=== PATIENT | female | born 1940 | race Caucasian/White ===

== ENCOUNTER → 2018-11-21 | Outpatient (CLI) | payer MEDICARE, BC ==
--- NOTE | 2018-11-21 12:02 | Diagnostic Imaging Report ---
PROCEDURE: CT abdomen and pelvis without contrast. TECHNIQUE: Multiple contiguous axial images were obtained through the abdomen and pelvis without the use of intravenous contrast. Auto Exposure Controls were utilized during the CT exam to meet ALARA standards for radiation dose reduction. INDICATION: Gross hematuria. COMPARISON: There are no prior studies available for comparison. FINDINGS: There is no evidence for nephrolithiasis or urolithiasis, and the kidneys do not appear to be obstructed. There is a 2.6 mm calcification along the path of the left ureter at the level of the sacral promontory. However, this is not clearly within the ureter. The urinary bladder is only partially filled and consequently not well evaluated. There is no obvious bladder abnormality evident. The uterus is surgically absent. There is no pelvic mass or free fluid collection noted. The appendix was not well visualized, but there are no indirect signs of acute appendicitis. The gallbladder is surgically absent. The liver, spleen, pancreas, adrenals, aorta, and inferior vena cava show no sign of an acute abnormality. The stomach is partially filled with fluid and consequently difficult to assess. The lung bases are generally clear. The patient appears to have undergone mastectomy on the left, and there does appear to be a tissue bracelet maker novelty in place. The bone windows show no sign of a fracture or of a destructive lesion. There is a dorsal stimulator device in place with the battery pack in the soft tissues of the left buttock. The leads extend to the level of T12. However, the leads are in the subcutaneous fat just to the left of midline and not in the region of the thecal sac. IMPRESSION: 1. There is no evidence for nephrolithiasis or urolithiasis, and the kidneys do not appear to be obstructed. There is no obvious bladder abnormality evident. 2. There is no acute abnormality of the abdomen or pelvis. 3. The gallbladder and uterus are surgically absent. There also appears to have been prior left mastectomy. 4. There is a dorsal stimulator device in place on the left. However, the leads are in the subcutaneous fat along the posterior aspect of the lower thoracic spine and not within the thecal sac. Dictated by: Dictated on workstation # [id number]
== END ==
LOC: RAD 10:26
PROVIDERS: ATTEND Urology
DX: R31.0 Gross hematuria (principal); Z90.49 Acquired absence of other specified parts of digestive tract; Z90.710 Acquired absence of both cervix and uterus; Z96.89 Presence of other specified functional implants
CPT/HCPCS: 74176

== ENCOUNTER 2019-04-22 09:15 | Outpatient (CLI) | payer MEDICARE ==
[~2019-04-22] VITALS: Ht 157 cm; Wt 55.0 kg
[~2019-04-22 09:15] MED LIST: ANTI1CAP5 PO; ASCO100025 PO; ASPI-808 PO; CALC600T12 PO; CETI10TA17 PO; CRAN1CAP3 PO; CYCL10TA9 PO; DIAZ5TAB3 PO; DOCU-238 PO; EZET10TA49 PO; FLUO20CA42 PO; HYDR-3820 PO; LACT1CAP62 PO; LETR2.5T5 PO; MAGN400T39 PO; NIAC500T24 PO; POLY17PO6 PO; ROSU10TA28 PO
== END 2019-04-22 10:20 | disposition home or self-care (01) ==
LOC: PREOP 09:15
PROVIDERS: ATTEND Orthopaedic Surgery
DX: Z01.818 Encounter for other preprocedural examination (principal)

== ENCOUNTER 2019-04-27 07:46 | Day surgery (SDC) | payer MEDICARE ==
[~2019-04-27] VITALS: Ht 157 cm; Wt 55.0 kg
[2019-04-27] VITALS (11 sets, daily range): BP systolic 139–162; BP diastolic 66–80
[2019-04-27] MEDS ORDERED: LACTATED RINGERS 1,000 ML IV PRN (07:52)
[2019-04-27] MEDS ORDERED: ceFAZolin 2 GM/50 ML PRE-MIX IV ONE (08:15)
[2019-04-27] MEDS ORDERED: CATHETER FLUSH 10 ML SYR IV PRN (08:15)
[2019-04-27] MEDS ORDERED: BACITRACIN 100,000 UNIT/NS 1000 ML POUR BOTTLE IR ONE ×2 (09:00)
[2019-04-27] MEDS ORDERED: GENTAMICIN 40 MG/ML 2 ML INJ SDV ONE (09:26)
[2019-04-27] MEDS ORDERED: BUP/EPI 0.5% 1:200,000 (MARCAINE) 10ML VIAL IJ ONE (09:27)
[2019-04-27] MEDS ORDERED: BACITRACIN OINTMENT 28 GM TUBE ONE (09:27)
[2019-04-27] MEDS ORDERED: ONDANSETRON 4 MG/2 ML (SDV) Z0FRAN ONE ×2 (09:28→09:29)
[2019-04-27] MEDS ORDERED: proPOfol 200 MG/20 ML (DIPRIVAN) VIAL IV ONE (09:28)
[2019-04-27] MEDS ORDERED: SEVOFLURANE (ULTANE) 15 ML INHAL SOLN ONE ×3 (09:28→10:48)
[2019-04-27] MEDS ORDERED: LIDOCAINE PF 2% 5 ML (XYLOCAINE) VIAL ONE (09:28)
[2019-04-27] MEDS ORDERED: DEXAMETHASONE 10 MG/ML (DECADRON) 1 ML VIAL ONE (09:28)
[2019-04-27] MEDS ORDERED: FAMOTIDINE 20MG/2ML IV (PEPCID) ONE (09:29)
[2019-04-27] MEDS ORDERED: MIDAZOLAM 2 MG/2 ML (VERSED) VIAL ONE ×2 (09:33→09:35)
[2019-04-27] MEDS ORDERED: fentaNYL INJECTION 100 MCG/2 ML AMP ONE (09:34)
[2019-04-27] MEDS ORDERED: PROPOFOL INJECTION 50 ML IV ONE (09:40)
[2019-04-27] MEDS ORDERED: FAMOTIDINE 20MG/2ML IV (PEPCID) IV ONE (09:45)
[2019-04-27] MEDS ORDERED: ONDANSETRON 4 MG/2 ML (SDV) Z0FRAN IV ONE (09:45)
[2019-04-27] MEDS ORDERED: NEOSTIGMINE 3 MG/3 ML VIAL ONE (10:49)
[2019-04-27] MEDS ORDERED: GLYCOPYRROLATE 0.2 MG/ML (ROBINUL) 2 ML VIAL ONE (10:49)
--- NOTE | 2019-04-27 11:07 | Discharge Instructions ---
Discharge Instructions Reconcile Patient Problems Problems Reviewed?: Yes Patient Instructions Patient Instructions follow up in clinic in 2 weeks for staple removal Patient Instructions: keep incision coverd, clean, and dry Return to [facility] For: fever, chills incisional drainage chest pain shortness of breath Activity & Diet Discharge Diet: No Restrictions MORRIS MACIEL Apr 27, 2019 11:07 POS
[2019-04-27] MEDS ORDERED: HYDR-3820 PO (11:10)
[2019-04-27] MEDS ORDERED: ONDANSETRON 4 MG/2 ML (SDV) Z0FRAN IVP PRN (11:15)
[2019-04-27] MEDS ORDERED: MEPERIDINE (DEMEROL) INJ 50 MG/ML IVP ONE (11:15)
[2019-04-27] MEDS ORDERED: KETOROLAC 30 MG/ML VIAL IVP ONE (11:15)
[2019-04-27] MEDS ORDERED: morphine INJ 10 MG/ML 1ML (SYR OR VIAL) IVP ONE (11:15)
[2019-04-27] MEDS ORDERED: KETOROLAC 30 MG/ML VIAL ONE (11:17)
--- NOTE | 2019-04-27 11:32 | Diagnostic Imaging Report ---
INDICATION: Fluoroscopy during spinal cord stimulator removal. Fluoroscopy was provided in the OR during spinal cord stimulator removal. 7 seconds of fluoroscopic time was utilized. IMPRESSION: Fluoroscopy during spinal cord stimulator removal. Dictated by: Dictated on workstation # [id number]
--- NOTE | 2019-04-27 12:02 | Anesthesia-General Post-Op ---
General Patient Condition Mental Status/LOC: Same as Preop Cardiovascular: Satisfactory Nausea/Vomiting: Absent Respiratory: Satisfactory Pain: Controlled Complications: Absent Post Op Complications Complications None Follow Up Care/Instructions Patient Instructions None needed. Anesthesia/Patient Condition Patient Condition Patient is doing well, no complaints, stable vital signs, no apparent adverse anesthesia problems. No complications reported per nursing. JEMMA KO CRNA Apr 27, 2019 12:02 POS
--- NOTE | 2019-04-27 12:10 | NUR ---
TO AMB SURG FROM PAR PER CART. ALERT, DENIES C/O PAIN OR NAUSEA. OPSITE OVER GAUZE DRESSINGS D/I TO X4 SURGICAL SITES FROM LEFT UPPER BACK TO LEFT BUTTOCK. ICE CHIPS AND WATER PROVIDED. CMS/NEURO CHECKS WNL.
--- NOTE | 2019-04-27 12:40 | NUR ---
HAS BEEN UP TO BR WITH ASSIST, GAIT STEADY. NO CHANGE IN CMS/NEURO OR SURGICAL SITE ASSESSMENTS.
--- NOTE | 2019-04-27 13:00 | NUR ---
DENIES PAIN OR NAUSEA. STATES SHE IS READY FOR DISMISSAL.
--- NOTE | 2019-04-27 14:03 | OPERATIVE REPORT ---
DATE OF SERVICE: 04/27/2019 SURGEON: Esteban Ceja DO MANAGER TERMINAL: KYLE Yuan. This is a medically necessary procedure. Marketing Account Manager was necessary for retraction of vital neurovascular structures. Without an health information assistant, the procedure would not be possible. PREOPERATIVE DIAGNOSES: 1. Painful hardware. 2. Neuropathic pain syndrome. POSTOPERATIVE DIAGNOSES: 1. Painful hardware. 2. Neuropathic pain syndrome. PROCEDURE PERFORMED: Removal of spinal cord stimulator percutaneous lead and pulse generator. COMPLICATIONS: None. SPECIMEN SENT: Pulse generator, pocket granuloma. ESTIMATED BLOOD LOSS: Minimal. ANESTHESIA: General endotracheal tube anesthesia with local anesthetic. HISTORY OF PRESENT ILLNESS: The patient is a very pleasant 78-year-old female who had a percutaneous spinal cord stimulator lead placed some time ago. This did not help with her pain and she wished to have it removed due to pain over the battery site when she did sit as the pulse generator was placed directly over her ischial tuberosity. DESCRIPTION OF PROCEDURE: The patient was identified by name on wrist band in the preoperative holding area. Her operative site was signed, consent was signed. SCDs were placed. Neuro monitoring was hooked up and antibiotics were started. She was taken to the operating room theater and placed under general endotracheal tube anesthesia and then transferred to the operating room table in the prone position. She was prepped and draped in the usual sterile fashion. Formal timeout was conducted. Incisions were then made over the old scar lines. There were approximately four incisions were made. First, I had infiltrated the skin and soft tissue with 0.5% Marcaine with epinephrine. I located the pulse generator, it was very white powdery substance almost as if it was battery corrosion totally encapsulating the pulse generator. I removed the pulse generator, cut the wires. I did remove the encapsulation material and sent to the lab for analysis as routine analysis. I made incisions further up over the old scar lines, found the leads and totally removed the percutaneous leads and got an x-ray, which demonstrated no residual retained hardware. When I was finished, I maintained hemostasis, irrigated the wounds, placed 1 gram of vancomycin powder and I closed the wound utilizing #0 Vicryls followed by 2-0 Vicryl followed by jose for skin. We applied dressings and took the patient in the supine position to the PACU where she awoke without incident. She tolerated the procedure well. PLAN: At this time is to discharge the patient today. I will see her back in two weeks and is to keep her wound clean and dry. Job ID: [id number] DocumentID: [id number] Dictated Date: 04/27/2019 10:59:11 Hack Driver Date: 04/27/2019 14:02:29 Dictated By: ESTEBAN CEJA DO
== END 2019-04-27 13:15 | disposition home or self-care (01) ==
LOC: SDC 07:46
PROVIDERS: ATTEND Orthopaedic Surgery
DX: T85.698A Other mechanical complication of other specified internal prosthetic devices, implants and grafts, initial encounter (principal); M79.2 Neuralgia and neuritis, unspecified; M79.89 Other specified soft tissue disorders; I11.9 Hypertensive heart disease without heart failure; I25.10 Atherosclerotic heart disease of native coronary artery without angina pectoris; E78.5 Hyperlipidemia, unspecified; F41.9 Anxiety disorder, unspecified; Z90.49 Acquired absence of other specified parts of digestive tract; Z90.710 Acquired absence of both cervix and uterus; Z90.89 Acquired absence of other organs; Z85.3 Personal history of malignant neoplasm of breast; Z79.899 Other long term (current) drug therapy; Z79.82 Long term (current) use of aspirin; Z79.891 Long term (current) use of opiate analgesic; Z80.9 Family history of malignant neoplasm, unspecified; Z82.49 Family history of ischemic heart disease and other diseases of the circulatory system
CPT/HCPCS: 87081; 88305

== ENCOUNTER → 2019-08-12 | Outpatient (CLI) | payer MEDICARE ==
[~2019-08-12] MED LIST changes: +ACHYD1T PO; -DIAZ5TAB3 PO; +DIAZ5TAB49 PO; -HYDR-3820 PO; -LETR2.5T5 PO; +LETR2.5T6 PO
[2019-08-12 09:23] LABS: ALANINE AMINOTRANSFERASE 18 U/L (0-55); ALBUMIN 4.3 GM/DL (3.2-4.5); ALKALINE PHOSPHATASE 82 U/L (40-136); BILIRUBIN,TOTAL 0.3 MG/DL (0.1-1.0); BUN/CREATININE RATIO 17; CALCIUM 9.6 MG/DL (8.5-10.1); CARBON DIOXIDE 30 MMOL/L (21-32); CHLORIDE 102 MMOL/L (98-107); CREATININE SERUM 0.77 MG/DL (0.60-1.30); GFR ESTIMATED > 60; GLUCOSE 92 MG/DL (70-105); POTASSIUM 4.4 MMOL/L (3.6-5.0); SODIUM 142 MMOL/L (135-145); TOTAL PROTEIN 6.4 GM/DL (6.4-8.2)
[2019-08-12 14:57] LABS: CHOLESTEROL 147 MG/DL (< 200); HDL CHOLESTEROL 68 MG/DL (40-60); TRIGLYCERIDES 67 MG/DL (<150); VLDL CHOLESTEROL 13 MG/DL (5-40)
== END ==
LOC: LAB FS 08:24
PROVIDERS: ATTEND Family Medicine
DX: E78.5 Hyperlipidemia, unspecified (principal)
CPT/HCPCS: 36415; 80053; 80061

== ENCOUNTER → 2019-10-14 | Outpatient (CLI) | payer MEDICARE ==
[2019-10-14 15:39] LABS: HEMATOCRIT 36 % (35-52); MEAN CORPUSCULAR HEMOGLOBIN 29 PG (25-34); MEAN CORPUSCULAR HGB CONC 33 G/DL (32-36); MEAN CORPUSCULAR VOLUME 88 FL (80-99); MEAN PLATELET VOLUME 8.7 FL (7.4-10.4); PLATELET COUNT 250 10^3/uL (130-400); RED CELL DISTRIBUTION WIDTH 13.5 % (10.0-14.5); WHITE BLOOD COUNT 5.8 10^3/uL (4.3-11.0)
[2019-10-14 15:40] LABS: BASOPHILS % (AUTO) 1 % (0-10); EOSINOPHILS # (AUTO) 0.1 10^3/uL (0.0-0.3); EOSINOPHILS % (AUTO) 1 % (0-10); LYMPHOCYTES # (AUTO) 1.5 X 10^3 (1.0-4.0); LYMPHOCYTES % (AUTO) 26 % (12-44); MONOCYTES # (AUTO) 0.5 X 10^3 (0.0-1.0); MONOCYTES % (AUTO) 8 % (0-12); NEUTROPHILS # (AUTO) 3.8 X 10^3 (1.8-7.8); NEUTROPHILS % (AUTO) 64 % (42-75)
[2019-10-15 15:34] LABS: FREE T4 (FREE THYROXINE) 1.05 NG/DL (0.70-1.48)
== END ==
LOC: LAB FS 15:02
PROVIDERS: ATTEND Family Medicine
DX: R53.1 Weakness (principal); R53.83 Other fatigue
CPT/HCPCS: 36415; 82607; 84439; 84443; 85025

== ENCOUNTER → 2019-10-22 | Outpatient (CLI) | payer MEDICARE | LOC: LAB FS 08:35 | PROVIDERS: ATTEND Family Medicine | DX: E55.9 Vitamin D deficiency, unspecified (principal) | CPT/HCPCS: 36415; 82306 ==

== ENCOUNTER → 2019-11-09 | Outpatient (CLI) | payer MEDICARE ==
[2019-11-09 08:39] LABS: ALANINE AMINOTRANSFERASE 17 U/L (0-55)
[2019-11-09 15:36] LABS: CHOLESTEROL 146 MG/DL (< 200); HDL CHOLESTEROL 71 MG/DL (40-60); TRIGLYCERIDES 56 MG/DL (<150); VLDL CHOLESTEROL 11 MG/DL (5-40)
== END ==
LOC: LAB FS 07:57
PROVIDERS: ATTEND Internal Medicine Cardiovascular Disease
DX: E78.5 Hyperlipidemia, unspecified (principal)
CPT/HCPCS: 36415; 80061; 84450; 84460

== ENCOUNTER → 2019-11-13 | Outpatient (CLI) | payer MEDICARE | LOC: LABNPT 08:52 | PROVIDERS: ATTEND Pain Medicine Interventional Pain Medicine | DX: Z01.812 Encounter for preprocedural laboratory examination (principal); Z20.828 Contact with and (suspected) exposure to other viral communicable diseases; G54.8 Other nerve root and plexus disorders | CPT/HCPCS: 87635 ==

== ENCOUNTER 2019-11-17 17:34 | Emergency (ER) | payer MEDICARE ==
[~2019-11-17] VITALS: Ht 165 cm; Wt 60.0 kg
[2019-11-17] MEDS ORDERED: NITROGLYCERIN 2% OINT 1 GM UNIT DOSE PACKET TOP ONE (17:45)
[2019-11-17] MEDS ORDERED: ASPIRIN 81 MG CHEW (CHILDREN'S ASA) PO ONE (17:45)
[2019-11-17] MEDS ORDERED: morphine INJ 10 MG/ML 1ML (SYR OR VIAL) IVP STA ×3 (17:46→20:22)
--- NOTE | 2019-11-17 17:52 | ED Chest Pain ---
General Stated Complaint: CHEST PAIN Source: patient History of Present Illness Date Seen by Provider: Nov 17, 2019 Time Seen by Provider: 17:47 Initial Comments 79-year-old female presenting with complaints of left-sided chest pain and rib pain. She states this is been present since 1 PM today when she was leaving [facility] from having a spinal injection for pain in her back along her bra line. She had tried taking 2 sublingual nitroglycerin without any improvement at home. She states that pain feels similar to when she has had to have stents placed in the past. Her knuckler is through [facility]. She is scheduled to have a stress test in the morning because she had a fast heart rate and had not had an evaluation of her heart for while. She denies nausea or vomiting. She has some shortness of breath due to pain with deep breaths and movement. Allergies and Home Medications Allergies Coded Allergies: No Known Drug Allergies (Unverified , 04/21/19) Home Medications Antiox #11/Om3/Dha/Epa/Lut/Belinda 1 Each Capsule, 1 EACH PO DAILY, (Reported) Ascorbic Acid 1,000 Mg Tablet.er, 1,000 MG PO BID, (Reported) Aspirin 325 Mg Tablet, 325 MG PO DAILY, (Reported) Calcium Carbonate 600 Mg Tablet, 1,200 MG PO BID, (Reported) Cetirizine HCl 10 Mg Tablet, 10 MG PO DAILY, (Reported) Cranberry Conc/Ascorbic Acid 1 Each Capsule, 1 EACH PO DAILY, (Reported) Cyclobenzaprine HCl 10 Mg Tablet, 10 MG PO TID PRN for SPASMS, (Reported) Diazepam 5 Mg Tablet, 5 MG PO DAILY PRN for ANXIETY, (Reported) Docusate Sodium 100 Mg Capsule, 100 MG PO DAILY, (Reported) Ezetimibe 10 Mg Tablet, 5 MG PO DAILY, (Reported) Fluoxetine HCl 20 Mg Capsule, 20 MG PO DAILY, (Reported) Hydrocodone Bit/Acetaminophen 1 Each Tablet, 1 TAB PO Q6H PRN for PAIN-MODERATE Prescribed by: MORRIS MACIEL on 04/27/19 1110 Lactobacillus Acidophilus 1 Each Capsule, 1 EACH PO DAILY, (Reported) Letrozole 2.5 Mg Tablet, 2.5 MG PO DAILY, (Reported) Magnesium Oxide 400 Mg Tablet, 400 MG PO DAILY, (Reported) Niacinamide 500 Mg Tablet, 500 MG PO DAILY, (Reported) Polyethylene Glycol 3350 17 Gm Powd.pack, 17 GM PO DAILY, (Reported) Rosuvastatin Calcium 10 Mg Tablet, 10 MG PO DAILY, (Reported) Patient Home Medication List Home Medication List Reviewed: Yes Review of Systems Review of Systems Constitutional: No chills, No fever EENTM: No Symptoms Reported Respiratory: Denies Cough; Other (pain with deep breaths and movement) Cardiovascular: Chest Pain (left-sided chest pain with palpation and movement since 1300 today); Denies Lightheadedness, Denies Syncope Gastrointestinal: Denies Nausea, Denies Vomiting Genitourinary: Denies Burning, Denies Pain Musculoskeletal: back pain (today she had an injection of her back for pain along the bra line in her back.) Skin: no symptoms reported Psychiatric/Neurological: Denies Numbness, Denies Paresthesia Past Lcdmsyz-Ykjiqy-Dytitx Hx Past Med/Social Hx: Reviewed Nursing Past Med/Soc Hx Patient Social History 2nd Hand Smoke Exposure: No Recent Foreign Travel: No Contact w/Someone Who Travel: No Recent Hopitalizations: No Seasonal Allergies Seasonal Allergies: Yes Past Medical History Surgeries: Yes (PACEMAKER, L MASTECTOMY, SPINAL CORD STIMULATOR) Appendectomy, Gallbladder, 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, Oophorectomy, Tonsillectomy Respiratory: No Currently Using CPAP: No Currently Using BIPAP: No Cardiac: Yes (PACEMAKER, STENTS) Heart Attack, High Cholesterol Neurological: No TRANSITIONAL CARE NURSE History: 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 Sexually Transmitted Disease: No HIV/AIDS: No Genitourinary: No Gastrointestinal: Yes Chronic Constipation Musculoskeletal: Yes Chronic Back Pain Endocrine: No HEENT: Yes (GLASSES) Loss of Vision: Denies Hearing Impairment: Denies Cancer: Yes Breast Did You Recieve Any Treatments: Yes What Type of Treatment Did You: Surgical Intervention Psychosocial: Yes Anxiety Integumentary: No Blood Disorders: No Adverse Reaction/Blood Tranf: No (N/A) Physical Exam Vital Signs Vital Signs - First Documented 11/17/19 17:34 Temp 36.1 Pulse 77 Resp 18 B/P (MAP) 139/72 (94) Pulse Ox 96 O2 Delivery Room Air Capillary Refill : Height, Weight, BMI Height: '" Weight: lbs. oz. kg; 22.31 BMI Method: General Appearance: WD/WN, Anxious, Mild Distress HEENT: Pharynx Normal Neck: Full Range of Motion, Normal Inspection, Non Tender, Supple Respiratory: Lungs Clear, Normal Breath Sounds, No Accessory Muscle Use, No Respiratory Distress, Other (pain with palpation of the left chest wall) Cardiovascular: Regular Rate, Rhythm, Normal Peripheral Pulses Gastrointestinal: Normal Bowel Sounds, No Pulsatile Mass, Non Tender, Soft Extremity: Normal Capillary Refill, No Pedal Edema Neurologic/Psychiatric: Alert, Oriented x3, No Motor/Sensory Deficits Skin: Normal Color, Warm/Dry Progress/Results/Core Measures Results/Orders Lab Results Laboratory Tests Test 11/17/19 17:45 Range/Units White Blood Count 6.3 4.3-11.0 10^3/uL Red Blood Count 4.10 L 4.35-5.85 10^6/uL Hemoglobin 12.1 11.5-16.0 G/DL Hematocrit 36 35-52 % Mean Corpuscular Volume 89 80-99 FL Mean Corpuscular Hemoglobin 30 25-34 PG Mean Corpuscular Hemoglobin Concent 33 32-36 G/DL Red Cell Distribution Width 13.5 10.0-14.5 % Platelet Count 264 130-400 10^3/uL Mean Platelet Volume 9.1 7.4-10.4 FL Neutrophils (%) (Auto) 88 H 42-75 % Lymphocytes (%) (Auto) 11 L 12-44 % Monocytes (%) (Auto) 1 0-12 % Eosinophils (%) (Auto) 0 0-10 % Basophils (%) (Auto) 0 0-10 % Neutrophils # (Auto) 5.5 1.8-7.8 X 10^3 Lymphocytes # (Auto) 0.7 L 1.0-4.0 X 10^3 Monocytes # (Auto) 0.1 0.0-1.0 X 10^3 Eosinophils # (Auto) 0.0 0.0-0.3 10^3/uL Basophils # (Auto) 0.0 0.0-0.1 10^3/uL Neutrophils % (Manual) 82 % Lymphocytes % (Manual) 11 % Monocytes % (Manual) 1 % Eosinophils % (Manual) 0 % Basophils % (Manual) 0 % Band Neutrophils 6 % Blood Morphology Comment NORMAL Prothrombin Time 13.0 12.2-14.7 SEC INR Comment 1.0 0.8-1.4 Activated Partial Thromboplast Time 27 24-35 SEC Sodium Level 137 135-145 MMOL/L Potassium Level 4.3 3.6-5.0 MMOL/L Chloride Level 101 98-107 MMOL/L Carbon Dioxide Level 21 21-32 MMOL/L Anion Gap 15 H 5-14 MMOL/L Blood Urea Nitrogen 20 H 7-18 MG/DL Creatinine 0.82 0.60-1.30 MG/DL Estimat Glomerular Filtration Rate > 60 BUN/Creatinine Ratio 24 Glucose Level 179 H 70-105 MG/DL Calcium Level 9.1 8.5-10.1 MG/DL Corrected Calcium 8.9 8.5-10.1 MG/DL Magnesium Level 2.2 1.6-2.4 MG/DL Total Bilirubin 0.3 0.1-1.0 MG/DL Aspartate Amino Transf (AST/SGOT) 25 5-34 U/L Alanine Aminotransferase (ALT/SGPT) 16 0-55 U/L Alkaline Phosphatase 70 40-136 U/L Troponin I < 0.30 <0.30 NG/ML Pro-B-Type Natriuretic Peptide 347.3 H <75.0 PG/ML Total Protein 6.4 6.4-8.2 GM/DL Albumin 4.2 3.2-4.5 GM/DL My Orders Orders - SERENA HARRINGTON MD Cbc With Automated Diff (11/17/19 17:44) Magnesium (11/17/19 17:44) Chest 1 View Ap/Pa Only (11/17/19 17:44) Ekg Tracing (11/17/19 17:44) Comprehensive Metabolic Panel (11/17/19 17:44) Protime With Inr (11/17/19 17:44) Partial Thromboplastin Time (11/17/19 17:44) O2 (11/17/19 17:44) Monitor-Rhythm Ecg Trace Only (11/17/19 17:44) Aspirin Chewable Tablet (Baby Aspirin Ch (11/17/19 17:45) Ed Iv/Invasive Line Start (11/17/19 17:44) Troponin I Fs (11/17/19 17:44) Probnp Fs (11/17/19 17:44) Nitroglycerin Ointment (Nitrobid Ointme (11/17/19 17:45) Morphine Injection (Morphine Injection (11/17/19 17:46) Manual Differential (11/17/19 17:45) Morphine Injection (Morphine Injection (11/17/19 19:21) Chest 1 View Ap/Pa Only (11/17/19 19:52) Morphine Injection (Morphine Injection (11/17/19 20:22) Medications Given in ED Current Medications Medications Dose Ordered Sig/Bertin Route Start Time Stop Time Status Last Admin Dose Admin Aspirin 324 mg ONCE ONCE PO 11/17/19 17:45 11/17/19 17:46 DC 11/17/19 17:54 324 MG Nitroglycerin 1 inch ONCE ONCE TOP 11/17/19 17:45 11/17/19 17:46 DC 11/17/19 17:55 1 INCH Vital Signs/I&O 11/17/19 11/17/19 17:34 20:29 Temp 36.1 Pulse 77 79 Resp 18 18 B/P (MAP) 139/72 (94) 125/68 Pulse Ox 96 95 O2 Delivery Room Air Room Air Progress Progress Note #1: Progress Note obtain labs, ECG, CXR. Order aspirin 324 mg po and nitroglycerin paste 1 inch. Pt reports this pain feels similar to when she had to have stents placed in the past and she is due to have a stress test at [facility] in the morning. She has a pacemaker that is set to 68 bpm. She had a pain management injection this morning in [place] because of pain along her bra line. Since 1300 she has had constant pain to left chest worse with movement, deep breath and palpation. Progress Note #2: Time: 18:54 Progress Note Updated pt about results being negative for acute coronary syndrome. Her troponin was 0. However on her chest x-ray she does have a small apical pneumothorax approximately 5-10%. Discussed with Dr. Moon from surgery and [facility] and he stated that they could admit her in [place] and watch this with repeat x-rays later tonight and then again in the morning. If it remained stable then she could probably be treated as an outpatient without having to go through a chest tube. If it was getting larger or she acutely decompensated then they could place a chest tube. However when I discussed it with the patient she wanted to speak with her family and was thinking about going to because her knuckler and specialty care is done through [facility] as well as the stress test that was scheduled for tomorrow morning. Progress Note #3: Time: 19:26 Progress Note Patient's family and the patient decided they would prefer to go to [facility] for her chest pain and acute pneumothorax. I spoke with LAURA Giang, at the transfer center and she will call back after speaking with the staff for a possible transfer. Progress Note #4: Time: 19:48 Progress Note LAURA Giang, from the transfer center called back and Dr. Juan Jose Rankin is the accepting physician. He did request to have a repeat chest x-ray performed and clouded up so he could make sure that she was not having significant change in the size of her pneumothorax, prior to transfer. Progress Note #5: Time: 20:05 Progress Note Repeat CXR appears stable without significant change in size of pneumothorax. Updated LAURA Giang, at the Transfer Center and she gave the room assignment so the patient could be transferred. Will call report and then have EMS take her to . Progress Note #6: Time: 20:43 Progress Note Patient given 2 mg of Morphine prior to transport with EMS to help with pain from movement and transport. Initial ECG Impression Date: Nov 17, 2019 Initial ECG Impression Time: 17:38 Initial ECG Rate: 83 Initial ECG Rhythm: Normal Sinus Initial ECG Comparisson: No Previous ECG Available Comment Paced rhythm with a heart rate of 83 bpm. MA interval 215 ms. Right bundle- branch block. QT interval 426 ms with a QTc interval 501 ms. There is no acute ST elevation and no prior tracing in the system for comparison. Diagnostic Imaging Diagonstic Imaging: Xray Plain Films/CT/US/NM/MRI: chest Comments [facility]. [place], [place] NAME: VINCENT VINCENT [facility] REC#: [id number] PT STATUS: REG ER : 1940 PHYSICIAN: SERENA HARRINGTON MD ADMIT DATE: 11/17/19/ER FS Draft Date of Exam:11/17/19 CHEST 1 VIEW AP/PA ONLY INDICATION: Chest pain. TIME OF EXAM: 05:50 p.m. COMPARISON: No prior studies are available for comparison. FINDINGS: Dual lead left subclavian cardiac pacemaker is noted. There is a lucency in the left lung apex and a small apical pneumothorax is suspected. Lungs are otherwise clear. There is no effusion. IMPRESSION: Findings suspect for a left apical pneumothorax. No other significant abnormality is detected. Dictated on workstation # [id number] Dict: 11/17/[id number] Trans: 11/17/191807 [facility] [id number] Interpreted by: ANANYA DAWN MD Electronically signed by: Kellie Imaging: Xray Plain Films/CT/US/NM/MRI: chest Comments NAME: [facility] REC#: [id number] PT STATUS: REG ER : 1940 PHYSICIAN: SERENA HARRINGTON MD ADMIT DATE: 11/17/19/ER FS Draft Date of Exam:11/17/19 CHEST 1 VIEW AP/PA ONLY INDICATION: Pneumothorax FINDINGS: Comparison is made with the exam performed earlier on 11/17/2019, which again shows a pneumothorax on the left with separation of the lung from the apex of approximately 3 cm which is stable compared to the prior study. No tension is evident. There is no effusion. IMPRESSION: Stable left apical pneumothorax. Dictated on workstation # [id number] Dict: 11/17/192008 Trans: 11/17/192012 [facility] [id number] Interpreted by: ANNA SOSA MD Electronically signed by: Departure Impression Primary Impression: Pneumothorax, acute Disposition: XFER SHT-TRM HOSP Condition: Stable Transfer Transfer Reason: Patient preference Transfer Progress Notes 1925 I spoke with LAURA Giang, at [facility] and gave her information about the patient. She will reach out to the staff doctors about the patient and call me back. 1947 LAURA Giang, from [facility] called and Dr. Juan Jose Rankin is the accepting physician. He did request a repeat xray prior to transfer to ensure her pneumothorax was not changing significantly before having her ride in ambulance Transfer Facility: [facility] Method of Transfer: EMS Departure-Patient Inst. Referrals: NILA CASAS MD (PCP/Family) Primary Care Physician SERENA HARRINGTON MD Nov 17, 2019 17:52
[2019-11-17 18:04] LABS: HEMATOCRIT 36 % (35-52); HEMOGLOBIN 12.1 G/DL (11.5-16.0); LYMPHOCYTES % (AUTO) 11 % (12-44); MEAN CORPUSCULAR HEMOGLOBIN 30 PG (25-34); MEAN CORPUSCULAR HGB CONC 33 G/DL (32-36); MEAN CORPUSCULAR VOLUME 89 FL (80-99); MEAN PLATELET VOLUME 9.1 FL (7.4-10.4); MONOCYTES % (AUTO) 1 % (0-12); NEUTROPHILS % (AUTO) 88 % (42-75); PLATELET COUNT 264 10^3/uL (130-400); RED CELL DISTRIBUTION WIDTH 13.5 % (10.0-14.5); WHITE BLOOD COUNT 6.3 10^3/uL (4.3-11.0)
[2019-11-17 18:05] LABS: BASOPHILS % (AUTO) 0 % (0-10); EOSINOPHILS % (AUTO) 0 % (0-10); LYMPHOCYTES # (AUTO) 0.7 X 10^3 (1.0-4.0); MONOCYTES # (AUTO) 0.1 X 10^3 (0.0-1.0); NEUTROPHILS # (AUTO) 5.5 X 10^3 (1.8-7.8)
--- NOTE | 2019-11-17 18:08 | Diagnostic Imaging Report ---
INDICATION: Chest pain. TIME OF EXAM: 05:50 p.m. COMPARISON: No prior studies are available for comparison. FINDINGS: Dual lead left subclavian cardiac pacemaker is noted. There is a lucency in the left lung apex and a small apical pneumothorax is suspected. Lungs are otherwise clear. There is no effusion. IMPRESSION: Findings suspect for a left apical pneumothorax. No other significant abnormality is detected. Dictated by: Dictated on workstation # [id number]
[2019-11-17 18:14] LABS: BAND NEUTROPHILS 6 %; BASOPHILS % (MANUAL) 0 %; EOSINOPHILS % (MANUAL) 0 %; LYMPHOCYTES % (MANUAL) 11 %; MONOCYTES % (MANUAL) 1 %; NEUTROPHILS % (MANUAL) 82 %
[2019-11-17 18:15] LABS: RBC MORPH NORMAL
[2019-11-17 18:16] LABS: ALANINE AMINOTRANSFERASE 16 U/L (0-55); ALBUMIN 4.2 GM/DL (3.2-4.5); ALKALINE PHOSPHATASE 70 U/L (40-136); BILIRUBIN,TOTAL 0.3 MG/DL (0.1-1.0); BUN/CREATININE RATIO 24; CALCIUM 9.1 MG/DL (8.5-10.1); CARBON DIOXIDE 21 MMOL/L (21-32); CHLORIDE 101 MMOL/L (98-107); CREATININE SERUM 0.82 MG/DL (0.60-1.30); GFR ESTIMATED > 60; GLUCOSE 179 MG/DL (70-105); MAGNESIUM 2.2 MG/DL (1.6-2.4); POTASSIUM 4.3 MMOL/L (3.6-5.0); SODIUM 137 MMOL/L (135-145); TOTAL PROTEIN 6.4 GM/DL (6.4-8.2)
--- NOTE | 2019-11-17 20:14 | Diagnostic Imaging Report ---
INDICATION: Pneumothorax FINDINGS: Comparison is made with the exam performed earlier on 11/17/2019, which again shows a pneumothorax on the left with separation of the lung from the apex of approximately 3 cm which is stable compared to the prior study. No tension is evident. There is no effusion. IMPRESSION: Stable left apical pneumothorax. Dictated by: Dictated on workstation # [id number]
[2019-11-17 20:29] VITALS: BP 125/68
--- OUTSIDE RECORDS SUMMARY | 2019-11-17 20:47 | XMS REPORT ---
Author Author Emily CASAS NILA Organization [facility] Address [address] [place] [address] Care Team Providers Care Multiple Games Dealer Name Role Phone NILA CASAS Unavailable PROBLEMS Type Condition ICD9-CM Code LFD85-CV Code Onset Dates Condition S tatus SNOMED Code Problem Abdominal pain, other specified site R10.9 Jan, Active 43313462 Problem Coronary atherosclerosis of unspecified type of vessel, point lay ira or graft I25.10 Active 598403873157082 Problem Abdominal pain, generalized R10.84 09 Jul, 2008 Active 415931079 Problem Mixed hyperlipidemia E78.2 Active 527287368 Problem Primary breast infiltrating ductal carcinoma C5 0.919 Feb, Active 259629393 Problem Seasonal allergies J30.2 Active 4 85038859 Problem Other and unspecified noninfectious mariana roenteritis and colitis(558.9) K52.9 Jan, Active 216149319 Problem Back pain M54.9 October, Active 1468451 05 Problem Hyperlipidemia E78.5 October, Active 55 927260 Problem Malaise and fatigue R53.81 October, Active 313920942 Problem Presence of cardiac pacemaker Z95.0 Mar, Active 173607119 ALLERGIES No Information ENCOUNTERS Encounter Location Date Diagnosis [address] [place] [address] Jun, [address] [place] [address] May, [address] [place] [address] May, Cervical adenopathy R59.0 an d Left ear pain H92.02 [address] [place] [address] May, [facility] [address] [place] [address] Apr, [facility] [address] [place] [address] Mar, [facility] [address] [place] [address] Mar, [facility] [address] [place] [address] Mar, Bilateral impacted cerumen H 61.23 and Seasonal allergies J30.2 [facility] [address] [place] [address] Feb, [facility] [address] [place] [address] Feb, [facility] [address] [place] [address] Jan, [facility] [address] [place] [address] Jan, [facility] [address] [place] [address] Dec, [facility] [place] [address] [facility] [place] [id number] [address] Dec, [facility] [address] [place] [address] Nov, [facility] [address] [place] [address] Nov, Hyperlipidemia E78.5 [facility] [address] [place] [address] Nov, [facility] [address] [place] [address] Nov, [facility] [address] [place] [address] Nov, Hyperlipidemia E78.5 [facility] [address] [place] [address] Nov, Recurrent UTI (urinary tract infection) N39.0 and Encounter for immunization Z23 [facility] [address] [place] [address] Nov, [facility] [place] [address] [place] [address] Nov, [facility] [place] [address] [place] [address] Nov, [facility] [place] [address] [place] [address] Nov, [facility] [place] [address] [place] [address] Nov, [facility] [address] [place] [address] October, [facility] [place] [address] [place] [address] October, Abdominal pressure R10.9 ; F requent UTI N39.0 and Thrush B37.0 [facility] [address] [place] [address] October, Thrush B37.0 [facility] [place] [address] [place] [address] October, [facility] [place] [address] [place] [address] October, [facility] [place] [address] [place] [address] Sep, [facility] [place] [address] [place] [address] Aug, Acute cystitis with hematuri a N30.01 and Thrush B37.0 [facility] [place] [address] [place] [address] Aug, [facility] [place] [address] [place] [address] Aug, [facility] [address] [place] [address] Aug, [facility] [address] [place] [address] Aug, [facility] [address] [place] [address] Jul, [facility] [address] [place] [address] Jul, [facility] [address] [place] [address] Jul, Urinary pain R30.9 [facility] [address] [place] [address] Jul, [facility] [address] [id number] [place] [address] Jul, [facility] [address] [place] [address] Jul, Mixed hyperlipidemia E78.2 [facility] [address] [place] [address] Jul, [facility] [address] [id number] [place] [address] Jun, [facility] [address] [id number] [place] [address] May, [facility] [address] [id number] [place] [address] May, [facility] [id number] [place] [address] Mar, [facility] [address] [id number] [place] [address] Jan, [facility] [id number] [place] [address] Jun, [facility] [address] [facility] [id number] [place] [address] Feb, [facility] [address] [facility] [id number] [place] [address] Nov, IMMUNIZATIONS No Known Immunizations SOCIAL HISTORY Never Assessed REASON FOR VISIT Requests return call PLAN OF CARE VITAL SIGNS MEDICATIONS Unknown Medications RESULTS No Results PROCEDURES No Known procedures INSTRUCTIONS MEDICATIONS ADMINISTERED No Known Medications MEDICAL (GENERAL) HISTORY Type Description Date Medical History Mammo 2019 Medical History PCV 06/10/2005 Medical History PCV 23 06/10/2013 Medical History Primary breast infiltrating ductal carci noma Medical History coronary atherosclerosis of unspecified type of vessel, point lay ira or graft Medical History hyperlipidemia Medical History back pain Medical History seasonal allergic reaction Medical History malaise and fatgue Medical History presence of cardiac pacemaker Medical History Colorectal screening 10/05/2015 Surgical History heart catheterization Surgical History pacemaker placement Surgical History appendectomy Surgical History cholecystectomy Surgical History excisional biopsy Surgical History hysterectomy Surgical History mastectomy Hospitalization History Surgery(s) only Hospitalization History childbirth only
--- OUTSIDE RECORDS SUMMARY | 2019-11-17 20:47 | XMS REPORT ---
Author Author Sammi Emily DOTSON Organization [facility] Address [address] [place] [address] Care Team Providers Care Climbing Guide Name Role Phone NILA Chapa Unavailable PROBLEMS Type Condition ICD9-CM Code EGN35-JK Code Onset Dates Condition S tatus SNOMED Code Problem Abdominal pain, other specified site R10.9 Jan, Active 08774893 Problem Coronary atherosclerosis of unspecified type of vessel, nenana or graft I25.10 Active 945453495130278 Problem Abdominal pain, generalized R10.84 09 Jul, 2008 Active 276651559 Problem Mixed hyperlipidemia E78.2 Active 847093315 Problem Primary breast infiltrating ductal carcinoma C5 0.919 Feb, Active 253224645 Problem Seasonal allergies J30.2 Active 4 15028065 Problem Other and unspecified noninfectious mariana roenteritis and colitis(558.9) K52.9 Jan, Active 010628465 Problem Back pain M54.9 October, Active 5011701 05 Problem Hyperlipidemia E78.5 October, Active 55 147160 Problem Malaise and fatigue R53.81 October, Active 953098420 Problem Presence of cardiac pacemaker Z95.0 Mar, Active 954607993 ALLERGIES Substance Reaction Event Type Date Status Flagyl Unknown Drug Allergy Aug, Active Cipro Unknown Drug Allergy Aug, Active Bactrim Unknown Drug Allergy Aug, Active ENCOUNTERS Encounter Location Date Diagnosis [address] [id number] [address] Jun, [address] [id number] [address] May, [address] [id number] [place] [address] May, Cervical adenopathy R59.0 an d Left ear pain H92.02 [facility] [address] [id number] [place] [address] May, [facility] [address] [id number] [place] [address] Apr, [facility] [address] [id number] [place] [address] Mar, [facility] [address] [id number] [place] [address] Mar, [facility] [address] [id number] [place] [address] Mar, Bilateral impacted cerumen H 61.23 and Seasonal allergies J30.2 [facility] [address] [id number] [place] [address] Feb, [facility] [address] [id number] [place] [address] Feb, [facility] [address] [id number] [place] [address] Jan, [facility] [address] [id number] [place] [address] Jan, [facility] [address] [id number] [place] [address] Dec, [facility] [place] [address] [facility] [id number] [place] [address] Dec, [facility] [address] [id number] [place] [address] Nov, [facility] [address] [id number] [place] [address] Nov, Hyperlipidemia E78.5 [facility] [address] [id number] [place] [address] Nov, [facility] [address] [id number] [place] [address] Nov, [facility] [address] [id number] [place] [address] Nov, Hyperlipidemia E78.5 [facility] [address] [id number] [place] [address] Nov, Recurrent UTI (urinary tract infection) N39.0 and Encounter for immunization Z23 [facility] [address] [id number] [place] [address] Nov, [facility] [address] [id number] [place] [address] Nov, [facility] [address] [id number] [place] [address] Nov, [facility] [address] [id number] [place] [address] Nov, [facility] [address] [id number] [place] [address] Nov, [facility] [place] [address] [id number] [place] [address] October, [facility] [address] [id number] [place] [address] October, Abdominal pressure R10.9 ; F requent UTI N39.0 and Thrush B37.0 [facility] [place] [address] [id number] [place] [address] October, Thrush B37.0 [facility] [place] [address] [id number] [place] [address] October, [facility] [address] [id number] [place] [address] October, [facility] [place] [address] [id number] [place] [address] Sep, [facility] [place] [address] [id number] [place] [address] Aug, Acute cystitis with hematuri a N30.01 and Thrush B37.0 [facility] [place] [address] [id number] [place] [address] Aug, [facility] [address] [id number] [place] [address] Aug, [facility] [place] [address] [id number] [place] [address] Aug, [facility] [address] [id number] [place] [address] Aug, [facility] [place] [id number] [place] [address] Jul, [facility] [place] [id number] [facility] [place] [address] Jul, [facility] [place] [address] [id number] [address] Jul, Urinary pain R30.9 [facility] [place] [id number] [facility] [place] [address] Jul, [facility] [address] [facility] [id number] [address] [place] [address] Jul, [facility] [place] [address] [id number] [address] Jul, Mixed hyperlipidemia E78.2 [facility] [address] [id number], [place] [address] Jul, [facility] [address] [facility] [id number] [address] [place] [address] Jun, [facility] [address] [facility] [id number] [address] [place] [address] May, [facility] [address] [facility] [id number] [address] [place] [address] May, [facility] [address] [facility] [id number] [address] [place] [address] Mar, [facility] [address] [facility] [id number] [address] [place] [address] Jan, [facility] [address] [facility] [id number] [address] [place] [address] Jun, [facility] [address] [facility] [id number] [address] [place] [address] Feb, [facility] [address] [facility] [id number] [address] [place] [address] Nov, IMMUNIZATIONS No Known Immunizations SOCIAL HISTORY Never Assessed REASON FOR VISIT possible thrush--patient coming at at 1145 PLAN OF CARE VITAL SIGNS Height 63 in 2018-09-04 Weight 128 lbs 2018-09-04 BMI 22.67 kg/m2 2018-09-04 Blood pressure systolic 130 mmHg 2018-09-04 Blood pressure diastolic 70 mmHg 2018-09-04 MEDICATIONS Medication Instructions Dosage Frequency Start Date End Date Duration S tatus Zolpidem Tartrate 5 MG October, Active Pseudoephedrine HCl 30 MG Jun, Active Nystatin 070794 UNIT/ML Mouth/Throat Four times a day 4 ml 6h Aug, 7 days Active Cyclobenzaprine HCl 10 MG May, Active Macrobid 100 MG Orally every 12 hrs 1 capsule with food 12h 28 M 2018 7 day(s) Active Diazepam 5 MG Jun, Activ e Macrobid 100 MG Orally every 12 hrs 1 capsule with food 12h 26 F eb2018 7 day(s) Active Aspirin 325 MG Active Prochlorperazine Maleate 10 MG Nov, Active Ondansetron 8 MG Nov, Ac tive Nitrostat 0.4 MG Jun, Ac tive Niacin Er 500 Mg Tablet,Extended Release 24 Hr 500 Active Fluoxetine HCl 20 MG Jul, Active Cyanocobalamin 1000 MCG/ML Jan, Active Ezetimibe 10 MG Active MethylPREDNISolone 4 MG Jun, Active Omeprazole 20 MG Nov, Ac tive Hydrocodone-Acetaminophen 10-325 MG Orally every 6 hrs as needed 1 tablet Aug, 28 days Active Prochlorperazine 25 Mg Rectal Suppository October Active RESULTS No Results PROCEDURES Procedure Date Ordered Result Body Site [facility] VISIT ESTABLISHED PATIENT September 04, 2018 LAB NOT BILLED BY [facility] September 04, 2018 URINALYSIS, AUTO, W/O SCOPE September 04, 2018 INSTRUCTIONS MEDICATIONS ADMINISTERED No Known Medications MEDICAL (GENERAL) HISTORY Type Description Date Medical History Mammo 2019 Medical History PCV 06/10/2005 Medical History PCV 23 06/10/2013 Medical History Primary breast infiltrating ductal carci noma Medical History coronary atherosclerosis of unspecified type of vessel, nenana or graft Medical History hyperlipidemia Medical History [...]
--- OUTSIDE RECORDS SUMMARY | 2019-11-17 20:47 | XMS REPORT | Continuity of Care Document ---
Author Organization Unknown Address Unknown Phone Unavailable Allergies Active Description Code Type Severity Reaction Onset Reported/Identified Relationship to Patient Clinical Status Yes No Known Drug Allergies [id number] Drug Allergy Unknown N/A 04/21/2019 Medications Medication Packaging Start Date St op Date Route Dosage Sig NEXIUM 9 ORAL 30 daily METHOTREXATE ORAL 4 every we ek LISINOPRIL 08/29 ORAL 30 daily HYDROCHLOROTHIAZIDE 08/29/2018 ORAL 15 regan y FOLIC ACID 08/29 ORAL 30 daily FLOMAX 9 ORAL 30 daily CRESTOR 08/30/19 19 ORAL 30 daily AUGMENTIN 2018 ORAL 20 twice da jamia Problems Date Dx Coded Attending Type Code Diagnosis Diagnosed By 11/24/2018 MASSIEL BASSETT MD Ot R31.0 GROSS HEMATURIA 11/24/2018 MASSIEL BASSETT MD Ot Z90.4 9 ACQUIRED ABSENCE OF OTHER SPECIFIED PART 11/24/2018 MASSIEL BASSETT MD Ot Z90.7 10 ACQUIRED ABSENCE OF BOTH CERVIX AND UTER 11/24/2018 MASSIEL BASSETT MD Ot Z96.8 9 PRESENCE OF OTHER SPECIFIED FUNCTIONAL I 12/16/2018 MASSIEL BASSETT MD Ot R31.0 GROSS HEMATURIA 12/16/2018 MASSIEL BASSETT MD Ot Z90.4 9 ACQUIRED ABSENCE OF OTHER SPECIFIED PART 12/16/2018 MASSIEL BASSETT MD Ot Z90.7 10 ACQUIRED ABSENCE OF BOTH CERVIX AND UTER 12/16/2018 MASSIEL BASSETT MD Ot Z96.8 9 PRESENCE OF OTHER SPECIFIED FUNCTIONAL I 12/18/2018 MASSIEL BASSETT MD Ot R31.0 GROSS HEMATURIA 12/18/2018 MASSIEL BASSETT MD Ot Z90.4 9 ACQUIRED ABSENCE OF OTHER SPECIFIED PART 12/18/2018 MASSIEL BASSETT MD Ot Z90.7 10 ACQUIRED ABSENCE OF BOTH CERVIX AND UTER 12/18/2018 SERJIO MD, MASSIEL A Ot Z96.8 9 PRESENCE OF OTHER SPECIFIED FUNCTIONAL I 04/15/2019 MASSIEL BASSETT MD Ot R31.0 GROSS HEMATURIA 04/15/2019 MASSIEL BASSETT MD Ot Z90.4 9 ACQUIRED ABSENCE OF OTHER SPECIFIED PART 04/15/2019 MASSIEL BASSETT MD Ot Z90.7 10 ACQUIRED ABSENCE OF BOTH CERVIX AND UTER 04/15/2019 MASSIEL BASSETT MD Ot Z96.8 9 PRESENCE OF OTHER SPECIFIED FUNCTIONAL I 04/15/2019 MASSIEL BASSETT MD Ot R31.0 GROSS HEMATURIA 04/15/2019 MASSIEL BASSETT MD Ot Z90.4 9 ACQUIRED ABSENCE OF OTHER SPECIFIED PART 04/15/2019 MASSIEL BASSETT MD Ot Z90.7 10 ACQUIRED ABSENCE OF BOTH CERVIX AND UTER 04/15/2019 MASSIEL BASSETT MD Ot Z96.8 9 PRESENCE OF OTHER SPECIFIED FUNCTIONAL I 04/21/2019 ESTEBAN MCALLSITER DO Ot Z01.818 ENCOUNTER FOR OTHER PREPROCEDURAL EXAMIN 04/21/2019 ESTEBAN MCALLISTER DO Ot Z01.818 ENCOUNTER FOR OTHER PREPROCEDURAL EXAMIN 04/21/2019 ESTEBAN MCALLISTER DO Ot Z01.818 ENCOUNTER FOR OTHER PREPROCEDURAL EXAMIN 04/22/2019 ESTEBAN MCALLISTER DO Ot Z01.818 ENCOUNTER FOR OTHER PREPROCEDURAL EXAMIN 04/27/2019 MASSIEL BASSETT MD Ot R31.0 GROSS HEMATURIA 04/27/2019 MASSIEL BASSETT MD Ot Z90.4 9 ACQUIRED ABSENCE OF OTHER SPECIFIED PART 04/27/2019 MASSIEL BASSETT MD Ot Z90.7 10 ACQUIRED ABSENCE OF BOTH CERVIX AND UTER 04/27/2019 MASSIEL BASSETT MD Ot Z96.8 9 PRESENCE OF OTHER SPECIFIED FUNCTIONAL I 04/27/2019 ESTEBAN MCALLISTER DO Ot E78 .5 HYPERLIPIDEMIA, UNSPECIFIED 04/27/2019 ESTEBAN MCALLISTER DO Ot F41 .9 ANXIETY DISORDER, UNSPECIFIED 04/27/2019 ESTEBAN MCALLISTER DO Ot I11 .9 HYPERTENSIVE HEART DISEASE WITHOUT HEART 04/27/2019 ESTEBAN MCALLISTER DO Ot I25.10 ATHSCL HEART DISEASE OF [place] CORONARY 04/27/2019 ESTEBAN MCALLISTER DO Ot M79 .2 NEURALGIA AND NEURITIS, UNSPECIFIED 04/27/2019 ESTEBAN MCALLISTER DO Ot M79.89 OTHER SPECIFIED SOFT TISSUE DISORDERS 04/27/2019 ESTEBAN MCALLISTER DO Ot T85.698A [facility] COMPL OF INTERNAL PROSTH DEV/GRFT, 04/27/2019 ESTEBAN MCALLISTER DO Ot Z79.82 DAIRY [employer]ER (CURRENT) USE OF ASPIRIN 04/27/2019 ESTEBAN MCALLISTER DO Ot Z79.891 SKILLED NURSING (CURRENT) USE OF OPIATE ANALGE 04/27/2019 ESTEBAN MCALLISTER DO Ot 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 04/27/2019 ESTEBAN MCALLISTER DO Ot Z80 .9 FAMILY HISTORY OF MALIGNANT NEOPLASM, UN 04/27/2019 ESTEBAN MCALLISTER DO Ot Z82.49 FAMILY HX OF ISCHEM HEART DIS AND OTH DI 04/27/2019 ESTEBAN MCALLISTER DO Ot Z85 .3 PERSONAL HISTORY OF MALIGNANT NEOPLASM O 04/27/2019 ESTEBAN MCALLISTER DO Ot Z90.49 ACQUIRED ABSENCE OF OTHER SPECIFIED PART 04/27/2019 ESTEBAN MCALLISTER DO Ot Z90.710 ACQUIRED ABSENCE OF BOTH CERVIX AND UTER 04/27/2019 ESTEBAN MCALLISTER DO Ot Z90.89 ACQUIRED ABSENCE OF OTHER ORGANS 05/04/2019 ESTEBAN MCALLISTER DO Ot E78 .5 HYPERLIPIDEMIA, UNSPECIFIED 05/04/2019 ESTEBAN MCALLISTER DO Ot F41 .9 ANXIETY DISORDER, UNSPECIFIED 05/04/2019 ESTEBAN MCALLISTER DO Ot I11 .9 HYPERTENSIVE HEART DISEASE WITHOUT HEART 05/04/2019 ESTEBAN MCALLISTER DO Ot I25.10 ATHSCL HEART DISEASE OF [place] CORONARY 05/04/2019 ESTEBAN MCALLISTER DO Ot M79 .2 NEURALGIA AND NEURITIS, UNSPECIFIED 05/04/2019 ESTEBAN MCALLISTER DO Ot M79.89 OTHER SPECIFIED SOFT TISSUE DISORDERS 05/04/2019 ESTEBAN MCALLISTER DO Ot T85.698A [facility] COMPL OF INTERNAL PROSTH DEV/GRFT, 05/04/2019 ESTEBAN MCALLISTER DO Ot Z79.82 SKILLED NURSING (CURRENT) USE OF ASPIRIN 05/04/2019 ESTEBAN MCALLISTER DO Ot 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 05/04/2019 ESTEBAN MCALLISTER DO Ot 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 05/04/2019 ESTEBAN MCALLISTER DO Ot Z80 .9 FAMILY HISTORY OF MALIGNANT NEOPLASM, UN 05/04/2019 ESTEBAN MCALLISTER DO Ot Z82.49 FAMILY HX OF ISCHEM HEART DIS AND OTH DI 05/04/2019 ESTEBAN MCALLISTER DO Ot Z85 .3 PERSONAL HISTORY OF MALIGNANT NEOPLASM O 05/04/2019 ESTEBAN MCALLISTER DO Ot Z90.49 ACQUIRED ABSENCE OF OTHER SPECIFIED PART 05/04/2019 ESTEBAN MCALLISTER DO Ot Z90.710 ACQUIRED ABSENCE OF BOTH CERVIX AND UTER 05/04/2019 ESTEBAN MCALLISTER DO Ot Z90.89 ACQUIRED ABSENCE OF OTHER ORGANS 08/14/2019 NILA CASAS MD Ot E78 .5 HYPERLIPIDEMIA, UNSPECIFIED 09/03/2019 NILA CASAS MD Ot E78 .5 HYPERLIPIDEMIA, UNSPECIFIED 10/15/2019 NILA CASAS MD Ot R53 .1 WEAKNESS 10/15/2019 NILA CASAS MD Ot R53.83 OTHER FATIGUE 10/16/2019 NILA CASAS MD Ot R53 .1 WEAKNESS 10/16/2019 NILA CASAS MD Ot R53.83 OTHER FATIGUE 10/20/2019 NILA CASAS MD Ot R53 .1 WEAKNESS 10/20/2019 NILA CASAS MD Ot R53.83 OTHER FATIGUE 10/22/2019 MASSIEL BASSETT MD Ot R31.0 GROSS HEMATURIA 10/22/2019 MASSIEL BASSETT MD Ot Z90.4 9 ACQUIRED ABSENCE OF OTHER SPECIFIED PART 10/22/2019 MASSIEL BASSETT MD Ot Z90.7 10 ACQUIRED ABSENCE OF BOTH CERVIX AND UTER 10/22/2019 MASSIEL BASSETT MD Ot Z96.8 9 PRESENCE OF OTHER SPECIFIED FUNCTIONAL I 10/22/2019 NILA CASAS MD Ot E78 .5 HYPERLIPIDEMIA, UNSPECIFIED 10/22/2019 NILA CASAS MD Ot R53 .1 WEAKNESS 10/22/2019 NILA CASAS MD Ot R53.83 OTHER FATIGUE 10/23/2019 MASSIEL BASSETT MD Ot R31.0 GROSS HEMATURIA 10/23/2019 MASSIEL BASSETT MD Ot Z90.4 9 ACQUIRED ABSENCE OF OTHER SPECIFIED PART 10/23/2019 MASSIEL BASSETT MD Ot Z90.7 10 ACQUIRED ABSENCE OF BOTH CERVIX AND UTER 10/23/2019 MASSIEL BASSETT MD Ot Z96.8 9 PRESENCE OF OTHER SPECIFIED FUNCTIONAL I 10/23/2019 NILA CASAS MD Ot E78 .5 HYPERLIPIDEMIA, UNSPECIFIED 10/23/2019 NILA CASAS MD Ot R53 .1 WEAKNESS 10/23/2019 NILA CASAS MD Ot R53.83 OTHER FATIGUE 10/23/2019 NILA CASAS MD Ot E55 .9 VITAMIN D DEFICIENCY, UNSPECIFIED 11/09/2019 MASSIEL BASSETT MD Ot R31.0 GROSS HEMATURIA 11/09/2019 MASSIEL BASSETT MD Ot Z90.4 9 ACQUIRED ABSENCE OF OTHER SPECIFIED PART 11/09/2019 MASSIEL BASSETT MD Ot Z90.7 10 ACQUIRED ABSENCE OF BOTH CERVIX AND UTER 11/09/2019 MASSIEL BASSETT MD Ot Z96.8 9 PRESENCE OF OTHER SPECIFIED FUNCTIONAL I 11/09/2019 NILA CASAS MD Ot E78 .5 HYPERLIPIDEMIA, UNSPECIFIED 11/09/2019 NILA CASAS MD Ot R53 .1 WEAKNESS 11/09/2019 NILA CASAS MD Ot R53.83 OTHER FATIGUE 11/09/2019 NILA CASAS MD Ot E55 .9 VITAMIN D DEFICIENCY, UNSPECIFIED 11/11/2019 DIOGO GUEVARA MD Ot E78.5 HYPERLIPIDEMIA, UNSPECIFIED 11/12/2019 MASSIEL BASSETT MD Ot R31.0 GROSS HEMATURIA 11/12/2019 MASSIEL BASSETT MD Ot Z90.4 9 ACQUIRED ABSENCE OF OTHER SPECIFIED PART 11/12/2019 MASSIEL BASSETT MD Ot Z90.7 10 ACQUIRED ABSENCE OF BOTH CERVIX AND UTER 11/12/2019 MASSIEL BASSETT MD Ot Z96.8 9 PRESENCE OF OTHER SPECIFIED FUNCTIONAL I 11/12/2019 NILA CASAS MD Ot E78 .5 HYPERLIPIDEMIA, UNSPECIFIED 11/12/2019 NILA CASAS MD Ot R53 .1 WEAKNESS 11/12/2019 NILA CASAS MD Ot R53.83 OTHER FATIGUE 11/12/2019 NILA CASAS MD Ot E55 .9 VITAMIN D DEFICIENCY, UNSPECIFIED 11/12/2019 DIOGO GUEVARA MD Ot E78.5 HYPERLIPIDEMIA, UNSPECIFIED 11/13/2019 MASSIEL BASSETT MD Ot R31.0 GROSS HEMATURIA 11/13/2019 MASSIEL BASSETT MD Ot Z90.4 9 ACQUIRED ABSENCE OF OTHER SPECIFIED PART 11/13/2019 MASSIEL BASSETT MD Ot Z90.7 10 ACQUIRED ABSENCE OF BOTH CERVIX AND UTER 11/13/2019 MASSIEL BASSETT MD Ot Z96.8 9 PRESENCE OF OTHER SPECIFIED FUNCTIONAL I 11/13/2019 NILA CASAS MD Ot E78 .5 HYPERLIPIDEMIA, UNSPECIFIED 11/13/2019 NILA CASAS MD Ot R53 .1 WEAKNESS 11/13/2019 NILA CASAS MD Ot R53.83 OTHER FATIGUE 11/13/2019 NILA CASAS MD Ot E55 .9 VITAMIN D DEFICIENCY, UNSPECIFIED 11/13/2019 DIOGO GUEVARA MD Ot E78.5 HYPERLIPIDEMIA, UNSPECIFIED 11/17/2019 MASSIEL BASSETT MD Ot R31.0 GROSS HEMATURIA 11/17/2019 MASSIEL BASSETT MD Ot Z90.4 9 ACQUIRED ABSENCE OF OTHER SPECIFIED PART 11/17/2019 MASSIEL BASSETT MD Ot Z90.7 10 ACQUIRED ABSENCE OF BOTH CERVIX AND UTER 11/17/2019 MASSIEL BASSETT MD Ot Z96.8 9 PRESENCE OF OTHER SPECIFIED FUNCTIONAL I 11/17/2019 NILA CASAS MD Ot E78 .5 HYPERLIPIDEMIA, UNSPECIFIED 11/17/2019 NILA CASAS MD Ot R53 .1 WEAKNESS 11/17/2019 NILA CASAS MD Ot R53.83 OTHER FATIGUE 11/17/2019 NILA CASAS MD Ot E55 .9 VITAMIN D DEFICIENCY, UNSPECIFIED 11/17/2019 DIOGO GUEVARA MD Ot E78.5 HYPERLIPIDEMIA, UNSPECIFIED 11/17/2019 LEONOR MARIE DO Ot G54.8 OTHER NERVE ROOT AND PLEXUS DISORDERS 11/17/2019 LEONOR MARIE DO Ot Z01.812 ENCOUNTER FOR PREPROCEDURAL LABORATORY E 11/17/2019 [facility] Ot Z20.828 CONTACT W AND EXPOSURE TO OTH VIRAL COMM 11/17/2019 MASSIEL BASSETT MD Ot R31.0 GROSS HEMATURIA 11/17/2019 MASSIEL BASSETT MD Ot Z90.4 9 ACQUIRED ABSENCE OF OTHER SPECIFIED PART 11/17/2019 MASSIEL BASSETT MD Ot Z90.7 10 ACQUIRED ABSENCE OF BOTH CERVIX AND UTER 11/17/2019 MASSIEL BASSETT MD Ot Z96.8 9 PRESENCE OF OTHER SPECIFIED FUNCTIONAL I 11/17/2019 NILA CASAS MD Ot E78 .5 HYPERLIPIDEMIA, UNSPECIFIED 11/17/2019 NILA CASAS MD Ot R53 .1 WEAKNESS 11/17/2019 NILA CASAS MD Ot R53.83 OTHER FATIGUE 11/17/2019 NILA CASAS MD Ot E55 .9 VITAMIN D DEFICIENCY, UNSPECIFIED 11/17/2019 ISMAEL ANGELES [facility] Ot E78.5 HYPERLIPIDEMIA, UNSPECIFIED 11/17/2019 LEONOR MARIE DO Ot G54.8 OTHER NERVE ROOT AND PLEXUS DISORDERS 11/17/2019 LEONOR MARIE DO Ot Z01.812 ENCOUNTER FOR PREPROCEDURAL LABORATORY E 11/17/2019 LEONOR MARIE DO Ot Z20.828 CONTACT W AND EXPOSURE TO OTH VIRAL COMM 11/17/2019 MASSIEL BASSETT MD Ot R31.0 GROSS HEMATURIA 11/17/2019 MASSIEL BASSETT MD Ot Z90.4 9 ACQUIRED ABSENCE OF OTHER SPECIFIED PART 11/17/2019 MASSIEL BASSETT MD Ot Z90.7 10 ACQUIRED ABSENCE OF BOTH CERVIX AND UTER 11/17/2019 MASSIEL BASSETT MD Ot Z96.8 9 PRESENCE OF OTHER SPECIFIED FUNCTIONAL I 11/17/2019 NILA CASAS MD Ot E78 .5 HYPERLIPIDEMIA, UNSPECIFIED 11/17/2019 NILA CASAS MD Ot R53 .1 WEAKNESS 11/17/2019 NILA CASAS MD Ot R53.83 OTHER FATIGUE 11/17/2019 NILA CASAS MD Ot E55 .9 VITAMIN D DEFICIENCY, UNSPECIFIED 11/17/2019 ISMAEL ANGELES, [facility] Ot E78.5 HYPERLIPIDEMIA, UNSPECIFIED 11/17/2019 LEONOR MARIE DO Ot G54.8 OTHER NERVE ROOT AND PLEXUS DISORDERS 11/17/2019 DEXDONIS MOHR LEONOR Saadia Ot Z01.812 ENCOUNTER FOR PREPROCEDURAL LABORATORY E 11/17/2019 LEONOR MARIE DO Ot Z20.828 CONTACT W AND EXPOSURE TO OTH VIRAL COMM Procedures There is no data. Results Test Result Range CULTURE, URINE - 08/05/18 10:50 CULTURE, URINE, ROUTINE SEE NOTE NRG CULTURE, URINE - 09/04/18 12:11 CULTURE, URINE, ROUTINE SEE NOTE NRG CULTURE, URINE - 11/05/18 15:28 CULTURE, URINE, ROUTINE SEE NOTE NRG LIPID PANEL - 12/05/18 07:58 CHOLESTEROL, TOTAL 145 mg/dL <200 HDL CHOLESTEROL 76 mg/dL >50 TRIGLYCERIDES 54 mg/dL <150 LDL-CHOLESTEROL 56 mg/dL (calc) NRG CHOL/HDLC RATIO 1.9 (calc) <5.0 NON HDL CHOLESTEROL 69 mg/dL (calc) <130 CMP - 12/05/18 07:58 GLUCOSE 94 mg/dL 65-99 UREA NITROGEN (BUN) 8 mg/dL 7-25 CREATININE 0.73 mg/dL 0.60-0.93 eGFR NON-AFR. RWANDAN 80 mL/min/1.73m2 > OR = 60 eGFR 93 mL/min/1.73m2 > OR = 60 BUN/CREATININE RATIO NOT APPLICABLE (calc) 6-22 SODIUM 139 mmol/L 135-146 POTASSIUM 4.6 mmol/L 3.5-5.3 CHLORIDE 104 mmol/L 98-110 CARBON DIOXIDE 29 mmol/L 20-32 CALCIUM 9.2 mg/dL 8.6-10.4 PROTEIN, TOTAL 6.4 g/dL 6.1-8.1 ALBUMIN 4.0 g/dL 3.6-5.1 GLOBULIN 2.4 g/dL (calc) 1.9-3.7 ALBUMIN/GLOBULIN RATIO 1.7 (calc) 1.0-2. 5 BILIRUBIN, TOTAL 0.5 mg/dL 0.2-1.2 ALKALINE PHOSPHATASE 85 U/L 33-130 AST 20 U/L 10-35 ALT 15 U/L 6-29 Methicillin resistant Staphylococcus aur eus (MRSA) screening culture - 04/27/19 08:20 Methicillin resistant Staphylococcus aureus (MRSA) scr eening culture NEG NRG Comprehensive metabolic panel - 08/12/19 08:46 Serum or plasma sodium measurement (moles/volume) 142 mmol/L 135-145 Serum or plasma potassium measurement (moles/volume) 4.4 mmol/L 3.6-5.0 Serum or plasma chloride measurement (moles/volume) 102 mmol/L 98-107 Carbon dioxide 30 mmol/L 21-32 Serum or plasma anion gap determination (moles/volume) 10 mmol/L 5-14 Serum or plasma urea nitrogen measurement (mass/volume ) 13 mg/dL 7-18 Serum or plasma creatinine measurement (mass/volume) 0.77 mg/dL 0.60-1.30 Serum or plasma urea nitrogen/creatinine mass ratio 17 NRG Serum or plasma creatinine measurement w ith calculation of estimated glomerular filtration rate > NRG Serum or plasma glucose measurement (mass/volume) 92 mg/dL 70-105 Serum or plasma calcium measurement (mass/volume) 9.6 mg/dL 8.5-10.1 Serum or plasma total bilirubin measurement (mass/volu me) 0.3 mg/dL 0.1-1.0 Serum or plasma alkaline phosphatase katherine surement (enzymatic activity/volume) 82 U/L 40-136 Serum or plasma aspartate aminotransfera se measurement (enzymatic activity/volume) 26 U/L 5-34 Serum or plasma alanine aminotransferase measurement (enzymatic activity/volume) 18 U/L 0-55 Serum or plasma protein measurement (mass/volume) 6.4 g/dL 6.4-8.2 Serum or plasma albumin measurement (mass/volume) 4.3 g/dL 3.2-4.5 CALCIUM CORRECTED 9.4 mg/dL 8.5-10.1 Lipid 1996 panel - 08/12/19 08:46 Serum or plasma triglyceride measurement (mass/volume) 67 mg/dL <150 Serum or plasma cholesterol measurement (mass/volume) 147 mg/dL < 200 Serum or plasma cholesterol in HDL measurement (mass/v olume) 68 mg/dL 40-60 Cholesterol in LDL [mass/volume] in serum or plasma by direct assay 78 mg/dL 1-129 Serum or plasma cholesterol in VLDL measurement (mass/ volume) 13 mg/dL 5-40 Serum or plasma aspartate aminotransfera se measurement (enzymatic activity/volume) - 11/09/19 08:16 Serum or plasma aspartate aminotransfera se measurement (enzymatic activity/volume) 24 U/L 5-34 Serum or plasma alanine aminotransferase measurement (enzymatic activity/volume) - 11/09/19 08:16 Serum or plasma alanine aminotransferase measurement (enzymatic activity/volume) 17 U/L 0-55 Lipid 1996 panel - 11/09/19 08:16 Serum or plasma triglyceride measurement (mass/volume) 56 mg/dL <150 Serum or plasma cholesterol measurement (mass/volume) 146 mg/dL < 200 Serum or plasma cholesterol in HDL measurement (mass/v olume) 71 mg/dL 40-60 Cholesterol in LDL [mass/volume] in serum or plasma by direct assay 70 mg/dL 1-129 Serum or plasma cholesterol in VLDL measurement (mass/ volume) 11 mg/dL 5-40 Coronavirus SARS-CoV-2 SO 2018 - 0 13:45 Coronavirus Ab [Units/volume] in Serum Negative Negative PT panel in platelet poor plasma by coag ulation assay - 11/17/19 17:45 Prothrombin time (PT) in platelet poor plasma by coagu lation assay 13.0 s 12.2-14.7 INR in platelet poor plasma or blood by coagulation as say 1.0 0.8-1.4 Activated partial thromboplastin time (a PTT) in platelet poor plasma bycoagulation assay - 11/17/19 17:45 Activated partial thromboplastin time (a PTT) in platelet poor plasma bycoagulation assay 27 s 24-35 Complete blood count (CBC) with automate d white blood cell (WBC) differential - 11/17/19 17:45 Blood leukocytes automated count (number/volume) 6.3 10*3/uL 4.3-11.0 Blood erythrocytes automated count (number/volume) 4.10 10*6/uL 4.35-5.85 Venous blood hemoglobin measurement (mass/volume) 12.1 g/dL 11.5-16.0 Blood hematocrit (volume fraction) 36 % 35-52 Automated erythrocyte mean corpuscular volume 89 [ foz_us] 80-99 Automated erythrocyte mean corpuscular h emoglobin (mass per erythrocyte) 30 pg 25-34 Automated erythrocyte mean corpuscular h emoglobin concentration measurement (mass/volume) 33 g/dL 32-36 Automated erythrocyte distribution width ratio 13. 5 % 10.0- 14.5 Automated blood platelet count (count/volume) 264 10*3/uL 130-400 Automated blood platelet mean volume measurement 9.1 [foz_us] 7.4-10.4 Automated blood neutrophils/100 leukocytes 88 % 42-75 Automated blood lymphocytes/100 leukocytes 11 % 12-44 Blood monocytes/100 leukocytes 1 % 0-12 Automated blood eosinophils/100 leukocytes 0 % 0-10 Automated blood basophils/100 leukocytes 0 % 0-10 Blood neutrophils automated count (number/volume) 5.5 10*3 1.8-7.8 Blood lymphocytes automated count (number/volume) 0.7 10*3 1.0-4.0 Blood monocytes automated count (number/volume) 0. 1 10*3 0.0-1.0 Automated eosinophil count 0.0 10*3/uL 0 .0-0.3 Automated blood basophil count (count/volume) 0.0 10*3/uL 0.0-0.1 Manual absolute plasma cell count - 02/27 17:45 Blood monocytes/100 leukocytes 1 % NRG Manual blood segmented neutrophils/100 leukocytes 82 % NRG Blood band neutrophils/100 leukocytes 6 % NRG Manual blood lymphocytes/100 leukocytes 11 % NRG Manual eosinophils/100 leukocytes in nose 0 % NRG Manual blood basophils/100 leukocytes 0 % NRG Blood erythrocyte morphology finding identification [facility] Comprehensive metabolic panel - 11/17/19 17:45 Serum or plasma sodium measurement (moles/volume) 137 mmol/L 135-145 Serum or plasma potassium measurement (moles/volume) 4.3 mmol/L 3.6-5.0 Serum or plasma chloride measurement (moles/volume) 101 mmol/L 98-107 Carbon dioxide 21 mmol/L 21-32 Serum or plasma anion gap determination (moles/volume) 15 mmol/L 5-14 Serum or plasma urea nitrogen measurement (mass/volume ) 20 mg/dL 7-18 Serum or plasma creatinine measurement (mass/volume) 0.82 mg/dL 0.60-1.30 Serum or plasma urea nitrogen/creatinine mass ratio 24 NRG Serum or plasma creatinine measurement w ith calculation of estimated glomerular filtration rate > NRG Serum or plasma glucose measurement (mass/volume) 179 mg/dL 70-105 Serum or plasma calcium measurement (mass/volume) 9.1 mg/dL 8.5-10.1 Serum or plasma total bilirubin measurement (mass/volu me) 0.3 mg/dL 0.1-1.0 Serum or plasma alkaline phosphatase katherine surement (enzymatic activity/volume) 70 U/L 40-136 Serum or plasma aspartate aminotransfera se measurement (enzymatic activity/volume) 25 U/L 5-34 Serum or plasma alanine aminotransferase measurement (enzymatic activity/volume) 16 U/L 0-55 Serum or plasma protein measurement (mass/volume) 6.4 g/dL 6.4-8.2 Serum or plasma albumin measurement (mass/volume) 4.2 g/dL 3.2-4.5 CALCIUM CORRECTED 8.9 mg/dL 8.5-10.1 Magnesium - 11/17/19 17:45 Magnesium 2.2 mg/dL 1.6-2.4 TROPONIN I FS - 11/17/19 17:45 TROPONIN I FS < 0.30 <0.30 PROBNP FS - 11/17/19 17:45 PROBNP FS 347.3 pg/mL <75.0 Encounters ACCT No. Visit Date/Time Discharge Status Pt. Type Provider Facility Loc./Unit Complaint [id number] 05/26/2019 17:00:00 05/26/2019 23:59: 59 CLS Outpatient AUGUSTO NILA Lyubov [facility] [id number] 12/05/2018 08:00:00 Document Registration [id number] 11/05/2018 09:20:00 Document Registration [id number] 09/04/2018 11:30:00 Document Registration [id number] 08/05/2018 10:30:00 Document Registration [id number] 08/30/2018 06:11:35 Document Registration [id number] 11/17/2019 17:36:00 20:44:00 DIS Emergency SERENA HARRINGTON MD [facility] ER FS CHEST PAIN [id number] 11/13/2019 08:52:00 23:59:59 CLS Outpatient LEONOR MARIE DO [facility] LABNPT [id number] 11/09/2019 07:57:00 23:59:59 CLS Outpatient ISMAEL ANGELES, DIOGO Mosher [facility] LAB FS AST LIPID ALT [id number] 10/22/2019 08:35:00 23:59:59 CLS Outpatient AUGUSTO ANGELES, NILA Mcarthur [facility] LAB FS VIT D 25 HYDROXY [id number] 10/14/2019 15:02:00 23:59:59 CLS Outpatient INLA CASAS MD [facility] LAB FS WEAKNESS,FATIGUE [id number] 08/12/2019 08:24:00 23:59:59 CLS Outpatient AUGUSTO ANGELES, NILA Mcarthur [facility] LAB FS E78.5 [id number] 04/27/2019 07:46:00 13:15:00 DIS Outpatient ESTEBAN MCALLISTER DO [facility] SDC PAINFUL HARDWARE [id number] 04/22/2019 09:15:00 10:20:00 DIS Outpatient ESTEBAN MCALLISTER DO [facility] PREOP PAINFUL HARDWARE [id number] 11/21/2018 10:26:00 23:59:59 CLS Outpatient SERJIO ANGELES, AMSSIEL Bernard [facility] RAD GROSS HEMATURIA
== END 2019-11-17 20:44 | disposition short-term general hospital (02) ==
LOC: EDUNIT# 17:34 → ER FS 17:36
DX: J93.83 Other pneumothorax (principal); I25.2 Old myocardial infarction; E78.00 Pure hypercholesterolemia, unspecified; F41.9 Anxiety disorder, unspecified; Z79.82 Long term (current) use of aspirin; Z95.0 Presence of cardiac pacemaker; Z95.5 Presence of coronary angioplasty implant and graft; Z85.3 Personal history of malignant neoplasm of breast
CPT/HCPCS: 36415; 71045; 80053; 83735; 83880; 84484; 85007; 85027; 85610; 85730; 93005; 93041

== ENCOUNTER → 2019-11-26 | Outpatient (CLI) | payer MEDICARE ==
--- NOTE | 2019-11-26 11:07 | Diagnostic Imaging Report ---
INDICATION: History of left pneumothorax. PA and lateral chest obtained at 10:11 a.m. and compared to 11/17/2019. FINDINGS: Heart is borderline in size. Pacemaker is unchanged. There is no focal infiltrate or pneumothorax or pleural fluid. The previous left-sided pneumothorax seen on 11/17/2019 appears resolved. There is a calcified granuloma in the right lung base. IMPRESSION: No focal infiltrate. Previous left-sided pneumothorax has resolved compared to 11/17/2019. There is no new abnormality. Dictated by: Dictated on workstation # [id number]
== END ==
LOC: RAD FS 10:02
PROVIDERS: ATTEND Family Medicine
DX: Z87.09 Personal history of other diseases of the respiratory system (principal)
CPT/HCPCS: 71046

== ENCOUNTER 2020-03-21 05:33 | Outpatient (RCR) | payer MEDICARE ==
[~2020-03-21] VITALS: Ht 160 cm; Wt 56.8 kg
[~2020-03-21 05:33] MED LIST changes: -CALC600T12 PO; +CLC600T PO; +L.AC1CAP6 PO; +MELO7.5T46 PO; +METO50TA7 PO; +OMEP20CA18 PO; +ONDA4TAB11 PO; +SUCR1TAB PO; +ZOLP5TAB7 PO
== END 2020-03-21 16:00 | disposition home or self-care (01) ==
LOC: PREOP 05:33
PROVIDERS: ATTEND Surgery
DX: Z01.818 Encounter for other preprocedural examination (principal)

== ENCOUNTER → 2020-03-24 | Outpatient (CLI) | payer MEDICARE | LOC: LABNPT 15:14 | PROVIDERS: ATTEND Family Medicine | DX: R30.0 Dysuria (principal) | CPT/HCPCS: 87077; 87088 ==

== ENCOUNTER → 2020-04-05 | Outpatient (CLI) | payer MEDICARE | LOC: LAB FS 10:15 | PROVIDERS: ATTEND Nurse Practitioner Family | DX: Z01.812 Encounter for preprocedural laboratory examination (principal); Z20.828 Contact with and (suspected) exposure to other viral communicable diseases | CPT/HCPCS: 87635 ==

== ENCOUNTER 2020-04-08 10:51 | Day surgery (SDC) | payer MEDICARE ==
[2020-04-08] VITALS (20 sets, daily range): BP systolic 90–152; BP diastolic 48–74
[~2020-04-08] VITALS: Ht 160 cm; Wt 56.8 kg
[2020-04-08] MEDS ORDERED: NS IV 500 ML 500 ML ONE (10:58)
[2020-04-08] MEDS ORDERED: LIDOCAINE JELLY 2% 6 ML SYRINGE ONE (11:18)
[2020-04-08] MEDS ORDERED: fentaNYL INJECTION 100 MCG/2 ML AMP ONE ×2 (11:18→11:21)
[2020-04-08] MEDS ORDERED: MIDAZOLAM 5 MG/5 ML (VERSED) VIAL ONE ×2 (11:18→11:21)
[2020-04-08] MEDS ORDERED: HURRICAINE EXT TUBE (BENZOCAINE) ONE (11:19)
[2020-04-08] MEDS: NS IV 500 ML 500 ML IV PRN ×2 (11:20→12:41)
[2020-04-08] MEDS ORDERED: LIDOCAINE JELLY 2% 6 ML SYRINGE MM PRN (11:30)
[2020-04-08] MEDS ORDERED: fentaNYL INJECTION 100 MCG/2 ML AMP IVP ONE (11:30)
[2020-04-08] MEDS ORDERED: MIDAZOLAM 5 MG/5 ML (VERSED) VIAL IV ONE (11:30)
[2020-04-08] MEDS ORDERED: HURRICAINE EXT TUBE (BENZOCAINE) XX PRN (11:30)
[2020-04-08] MEDS ORDERED: ONDANSETRON 4 MG/2 ML (SDV) Z0FRAN IVP ONE (11:55)
[2020-04-08] MEDS ORDERED: ONDANSETRON 4 MG/2 ML (SDV) Z0FRAN ONE (11:57)
[2020-04-08] MEDS ORDERED: PROPOFOL INJECTION 50 ML IV ONE (12:37)
--- NOTE | 2020-04-08 13:17 | Progress Note-Pre Operative ---
Pre-Operative Progress Note H&P Reviewed The H&P was reviewed, patient examined and no changes noted. Date Seen by Provider: Apr 08, 2020 Time Seen by Provider: 11:00 Date H&P Reviewed: Apr 08, 2020 Time H&P Reviewed: 11:00 Pre-Operative Diagnosis: GERD, regurg, LLQ abd pain MILLIE MIRANDA MD Apr 08, 2020 13:17
--- NOTE | 2020-04-08 13:19 | Progress Note-Post Operative ---
Post-Operative Progess Note Surgeon (s)/Square Cutter (s) Surgeon MILLEI MIRANDA MD Square Cutter: none Pre-Operative Diagnosis GERD, regurg, LLQ abd pain Post-Operative Diagnosis reflux esophagitis(stage2-3), moderate dist esoph stricture, small HH(1.5cm), moderate gastritis. chronic stage 2 ext and int hemorrhoids, moderate sigmoid diverticulosis. Procedure & Operative Findings Date of Procedure 04/08/20 Procedure Performed/Findings EGD with bx and balloon dilatation. colonoscopy Anesthesia Type mac Estimated Blood Loss Estimated blood loss (mL): minimal Specimens/Packing Specimens Removed ge jxn, antrum MILLIE MIRANDA MD Apr 08, 2020 13:19
[2020-04-08] MEDS ORDERED: PANT40TA2 PO (13:20)
--- NOTE | 2020-04-08 13:20 | Discharge Inst-Surgical ---
D/C Lap Instructions-KIDO New, Converted, or Re-Newed RX: RX on Chart Follow Up Appt in 6-8 weeks Activity as tolerated High Fiber Diet 25g or more per day Avoid Alcohol, Caffeine, Spicy Ideal and Acid foods. Drink 64 fluid oz or more of fluids per day. Symptoms to Report: Fever over 101 degree F, Nausea/Vomiting If any problems/questions: Contact your physician or go to Emergency Room MILLIE MIRANDA MD Apr 08, 2020 13:20
[2020-04-08] MEDS ORDERED: ACETAMINOPHEN 325 MG TABLET PO PRN (13:30)
[2020-04-08] MEDS ORDERED: morphine INJ 10 MG/ML 1ML (SYR OR VIAL) IVP PRN ×2 (13:30)
[2020-04-08] MEDS ORDERED: HYDROcodone/APAP 5 MG/325 MG (LORTAB) TAB PO PRN (13:30)
[2020-04-08] MEDS ORDERED: ONDANSETRON 4 MG/2 ML (SDV) Z0FRAN IVP PRN (16:00)
--- NOTE | 2020-04-08 22:21 | OPERATIVE REPORT ---
DATE OF SERVICE: 04/08/2020 ATTENDING PRIMARY CARE PHYSICIAN: Dr. Diann Almonte. PREOPERATIVE DIAGNOSES: Gastroesophageal reflux disease, weight loss, constipation, history of diverticulosis and left lower abdominal quadrant pain. POSTOPERATIVE DIAGNOSES: Reflux esophagitis stage II, mild distal esophageal stricture, small hiatal hernia 1.5 cm in size, moderate gastritis. No distal obstructions. Mild chronic stage II external and internal hemorrhoids, moderate sigmoid diverticulosis. PROCEDURE: EGD with biopsy and balloon dilatation, colonoscopy. SURGEON: Millie Miranda MD. ANESTHESIA: Monitored anesthesia care. ESTIMATED BLOOD LOSS: Minimal. FINDINGS: Reflux esophagitis stage II, mild distal esophageal stricture, small hiatal hernia 1.5 cm in size, moderate gastritis. No distal obstructions. Mild chronic stage II external and internal hemorrhoids, moderate sigmoid diverticulosis. DISPOSITION: The patient tolerated the procedure well. INDICATIONS: The patient is a 79-year-old female, who has had issues with crampy left lower quadrant abdominal pain, which is on an intermittent basis and sharp in nature. She has also struggled with constipation for many years and does after taking MiraLax to have bowel movements. She does not report any red blood per rectum nor any dark tarry stools as well as no family history of colon cancer. She also reports that she is having episodes of what sounds to be nausea; however, may be more related to regurgitation and gastroesophageal reflux disease. She also has lost weight due to this. DESCRIPTION OF PROCEDURE: The patient was brought to the endoscopy suite, laid in the left lateral decubitus position. After adequate IV pain and stated medications and monitored anesthesia care, the mouthpiece was applied. The endoscope was then placed in the mouth, visualizing the pharynx and hypopharyngeal region. Vocal cords, epiglottis and vallecula identified and appeared to be normal. The endoscope was then gently intubated. The esophageal opening and esophagus insufflated. The endoscope was then advanced through the first, second and third portions of esophagus at the level of the GE junction, reflux esophagitis stage II identified as well as a mild distal esophageal stricture and Schatzki's ring identified. A biopsy was taken of this region with forceps with visualization of good hemostasis. The endoscope was then advanced into the stomach and endoscope retroflexed, visualizing a small hiatal hernia approximately 1.5 cm in size. There was a moderate severity gastritis. No formal ulcerations, polyps, or any neoplasms identified. A biopsy was taken of the antrum to rule out H. pylori with visualization of good hemostasis. The endoscope was then advanced through the pylorus into the first and second portion of the duodenum, which appeared normal with no distal obstructions. We then proceeded with balloon dilatation of distal esophageal stricture. The balloon was placed in the stomach and pulled back to the area of stricture. We first proceeded to 2 and then 4 atmospheres of pressure with mild to moderate resistance. We then proceeded 5 atmospheres of pressure approximately 19.5 mm in luminal diameter with moderate resistance and left this in place for approximately 60 seconds. The balloon was then desufflated and removed with visualization of good hemostasis as well as no mucosal tears. The endoscope was then slowly withdrawn while taking a second look and suctioning of residual air with no additional findings. Under the same anesthesia, we then proceeded with colonoscopy portion of the procedure. Digital rectal examination was performed, which revealed mild chronic stage II external and internal hemorrhoids, not actively edematous nor inflamed and no bleeding. Normal sphincter tone was felt and there were no palpable masses. The endoscope was then intubated and anus and rectum gently insufflated. The endoscope was then advanced through the valves of Sweet of the rectum with no polyps or any neoplasms identified. Through the sigmoid colon, the sigmoid colon was tortuous and there was moderate sigmoid diverticulosis with no mucosal inflammatory change to indicate any diverticulitis. An attempt was made to pass through this region; however, resistance was met and it was decided to switch to a gastroscope and we were able to pass through the tortuous sigmoid colon into the rest of the descending, transverse and ascending colon to the cecum, which were normal. There were no polyps or any neoplasms identified. The endoscope was then slowly withdrawn while taking a second look and suctioning of residual air with no additional findings. The patient tolerated the procedure well. We will recommend the necessary lifestyle and diet accommodation including small and more frequent meals, avoidance of eating at night as well as head elevation while lying supine. She also needs to avoid caffeinated beverages, spicy, greasy and acidic foods. We will also start her on Protonix 40 mg daily. We will also recommend a high fiber diet with at least 25 to 30 grams of fiber daily as well as significant amounts of water to promote soft stools on a daily basis. The goal is to prevent any further propagation of diverticulosis and prevent complications associated with diverticulitis. If she is asymptomatic, she does not need the another colonoscopy for another 10 years. Job ID: [id number] DocumentID: [id number] Dictated Date: 04/08/2020 13:07:15 Systems Software Designer Date: 04/08/2020 22:20:53 Dictated By: MILLIE MIRANDA MD
== END 2020-04-08 14:06 | disposition home or self-care (01) ==
LOC: ENDO 10:51
PROVIDERS: ATTEND Surgery
DX: K29.50 Unspecified chronic gastritis without bleeding (principal); K21.00 Gastro-esophageal reflux disease with esophagitis, without bleeding; K22.2 Esophageal obstruction; K44.9 Diaphragmatic hernia without obstruction or gangrene; K64.1 Second degree hemorrhoids; K57.30 Diverticulosis of large intestine without perforation or abscess without bleeding; R63.4 Abnormal weight loss; Z91.048 Other nonmedicinal substance allergy status; F41.9 Anxiety disorder, unspecified; F32.9 Major depressive disorder, single episode, unspecified; G47.00 Insomnia, unspecified; I25.10 Atherosclerotic heart disease of native coronary artery without angina pectoris; M19.90 Unspecified osteoarthritis, unspecified site; E78.00 Pure hypercholesterolemia, unspecified; I25.2 Old myocardial infarction; Z86.010 Personal history of colon polyps; Z79.899 Other long term (current) drug therapy; Z79.82 Long term (current) use of aspirin; Z88.2 Allergy status to sulfonamides; Z88.7 Allergy status to serum and vaccine; Z91.041 Radiographic dye allergy status; Z88.1 Allergy status to other antibiotic agents; Z91.012 Allergy to eggs; Z87.11 Personal history of peptic ulcer disease; Z85.3 Personal history of malignant neoplasm of breast
CPT/HCPCS: 88305

== ENCOUNTER → 2021-01-02 | Outpatient (CLI) | payer MEDICARE ==
[~2021-01-02] MED LIST changes: +CALC600T91 PO; -CLC600T PO; -DOCU-238 PO; +DOCU-26 PO; +PANT40TA2 PO
--- NOTE | 2021-01-02 18:04 | Diagnostic Imaging Report ---
INDICATION: Chest pain. Comparison is made with prior examination from 11/26/2019. FINDINGS: Heart size is normal. Lungs are clear. There is no pleural effusion or pneumothorax. Mediastinum is unremarkable. Pacemaker overlies left hemithorax. IMPRESSION: No acute cardiopulmonary abnormality Dictated by: Dictated on workstation # [id number]
== END ==
LOC: RAD FS 15:50
PROVIDERS: ATTEND Family Medicine
DX: R07.9 Chest pain, unspecified (principal)
CPT/HCPCS: 71046

== ENCOUNTER → 2021-01-23 | Outpatient (CLI) | payer MEDICARE | LOC: LAB FS 11:55 | PROVIDERS: ATTEND Orthopaedic Surgery | DX: Z01.812 Encounter for preprocedural laboratory examination (principal); Z20.822 Contact with and (suspected) exposure to COVID-19 | CPT/HCPCS: 87635 ==

== ENCOUNTER 2021-02-23 23:10 | Emergency (ER) | payer MEDICARE ==
[~2021-02-23] VITALS: Ht 160 cm; Wt 57.6 kg
--- OUTSIDE RECORDS SUMMARY | 2021-02-23 23:16 | XMS REPORT | Encounter Summary ---
Author Author [facility] Organization [facility] Address Unknown Phone Unavailable Care Team Providers Care Jewel Sawyer Name Role Phone Amena Arrington MD 100 Zohaib Hernandes MD Unavailable Joel Caceres MD Unavailable Diego Cruz MD Unavailable Lorna Trujillo PA-C Unavailable Jose J Desai MD Unavailable Shahida Adan RN Unavailable Unavailable Diann Almonte MD PCP Encounter Details Care Team Description Date Type Department 01/12/2021 Travel Social History Date Tobacco Use Types Packs/Day Years Used Never Smoker Smokeless Tobacco: Never Used Comments Alcohol Use Standard Drinks/Week No 0 (1 standard drink = 0.6 o z pure alcohol) Sex Assigned at Date Recorded Female 11/16/2019 4:04 PM CDT Date Recorded COVID-19 Exposure Response 01/12/2021 1:55 PM CDT In the last month, have you been in contact with No / Unsure someone who was confirmed or suspected to have Coronavirus / COVID-19? documented as of this encounter Functional Status Date of Assessment Functional Status Response 12/21/2019 Does the patient have a hearing impairment: No 12/21/2019 Does the patient have a visual impairment: Yes 12/21/2019 Does the patient have impaired ambulation: No 12/21/2019 Does the patient have an activity of daily living No (ADL) impairment: 12/21/2019 Does the patient have an instrumental activity of No daily living (IADL) impairment: Date of Assessment Cognitive Status Response 12/21/2019 Does the patient have a cognitive impairment: No documented as of this encounter Plan of Treatment Not on filedocumented as of this encounter Goals Goal Patient Associated Recent Progress Patient-Stat Aut hor Goal Type Problems ed? GOAL General Yes Jeffery Graf RN Note: Twin jacobs documented as of this encounter Visit Diagnoses Not on filedocumented in this encounter Additional Health Concerns Assessment Noted Time A fall risk assessment has been completed for the pat ient 01/12/2021 2:44 PM CDT A Body Mass Index follow-up plan has been documented for the patient 05/18/2019 12:45 PM OUTSEWER PHQ-2 Depression Total Score: 0 01/12/2021 2:44 PM CDT documented as of this encounter
--- OUTSIDE RECORDS SUMMARY | 2021-02-23 23:16 | XMS REPORT | Encounter Summary ---
Author Author [facility] Organization [facility] Address Unknown Phone Unavailable Care Team Providers Care Clinical Research Physician Name Role Phone Amena Arrington MD 100 Zohaib Hernandes MD Unavailable Joel Caceres MD Unavailable Diego Cruz MD Unavailable Lorna Trujillo PA-C Unavailable Jose J Desai MD Unavailable Shahida Adan RN Unavailable Unavailable Diann Almonte MD PCP Reason for Visit * Reason Onset Date Comments Appointment Request 02/09/2021 Encounter Details Care Team Description Date Type Department David Jo, LAURA Appointment Request 02/09/2021 Telephone Cardiology: [facility], [address] [id number] [address] [place] [address] Social History Date Tobacco Use Types Packs/Day [...] impairment: No documented as of this encounter Miscellaneous Notes * Telephone Encounter - David Jo RN - 02/09/2021 8:56 AM CDT I returned a phone call to Emily. She was recently seen in fellows clinic with Altaf Borges. She would like to establish care with him at the [facility] down the road. I provided her their schedulers phone number to make an appoint ment and his nurses vml number to call with future calls/needs. She appreciated the prompt call backs to her this morning. All questions answered during the herbie l. documented in this encounter Plan of Treatment Not on filedocumented as of this encounter Goals Goal Patient Associated Recent Progress Patient-Stat Aut hor Goal Type Problems ed? GOAL General Yes Jeffery Graf RN Note: To get bettter documented as of this encounter Visit Diagnoses Not on filedocumented in this encounter Additional Health Concerns Assessment Noted Time A fall risk assessment has been completed for the pat ient 01/12/2021 2:44 PM CDT A Body Mass Index follow-up plan has been documented for the patient 05/18/2019 12:45 PM HUMAN RESOURCES PSYCHOLOGIST PHQ-2 Depression Total Score: 0 01/12/2021 2:44 PM CDT documented as of this encounter
--- OUTSIDE RECORDS SUMMARY | 2021-02-23 23:16 | XMS REPORT | Clinical Summary ---
Author Author [facility] Organization [facility] Address Unknown Phone Unavailable Care Team Providers Care Apartment Maintenance Supervisor Name Role Phone Amena Arrington MD 100 Zohaib Hernandes MD Unavailable Joel Caceres MD Unavailable Diego Cruz MD Unavailable Lorna Trujillo PA-C Unavailable Jose J Desai MD Unavailable Shahida Adan RN Unavailable Unavailable Diann Almonte MD PCP Source Comments Some departments are not documenting in the electronic medical record. If you d o not see the information that you expected, contact Release of Information in [facility] Health Information Management department at [phone] for further assistan ce in locating additional records.[facility] Allergies Comments Active Allergy Reactions Severity Noted Date pulls skin off Adhesive Tape REDNESS Low 02/18/2008 Egg ITCHING Low 04/09/2014 Metronidazole HIVES Low 03/14/2010 Allergy to eggs Influenza Virus Vaccines ITCHING Low 04/09 IV IODINE Iodine HIVES Medium 02/18/2008 Sulfa (Sulfonamide UNKNOWN Low 02/04/2014 Antibiotics) Medications End Date Status Medication Sig Dispensed Refills Start Date Active niacin SR (SLO-NIACIN) Take 500 mg 0 500 mg tablet by mouth twice daily. Active aspirin EC 325 mg tablet Take 325 mg 0 by mouth daily. Active zolpidem (AMBIEN) 5 mg Take 5 mg by 0 tablet mouth at bedtime as needed for Sleep. Active cetirizine (ZYRTEC) 10 mg Take 10 mg by 0 tablet mouth at bedtime daily. Active diazePAM (VALIUM) 5 mg Take 5 mg by 0 01 tablet mouth daily 7 as needed. HALF OF A TABLET EVERYDAY NEEDED Active HYDROcodone/acetaminophen Take 1 tablet 0 11/09 (+) (NORCO) 10/325 mg by mouth 7 tablet daily as needed Active omeprazole DR (PRILOSEC) Take one 90 capsule 3 0 20 mg capsuleIndications: capsule by 0 Gastroesophageal reflux mouth daily disease, esophagitis before presence not specified breakfast. Active meloxicam (MOBIC) 7.5 mg Take one 90 tablet 0 0 tablet tablet by 0 mouth twice daily as needed for Pain. Active metoprolol XL (TOPROL XL) Take one-half 45 tablet 3 50 mg extended release tablet by 0 tabletIndications: mouth daily. Essential hypertension, Coronary artery disease involving [place] coronary artery of [place] heart with angina pectoris (HCC) Active nitroglycerin (NITROSTAT) Place one 25 tablet 1 0.4 mg tablet tablet under 1 tongue every 5 minutes as needed for Chest Pain. If pain not resolved after third tablet call 911 or seek emergent help. Active cyclobenzaprine cyclobenzapri 0 (FLEXERIL) 10 mg tablet ne 10 mg 1 tablet TAKE 1 TABLET BY MOUTH THREE TIMES DAILY NEEDED FOR SPASMS Active fexofenadine (NOREEN) fexofenadine 0 180 mg tablet 180 mg tablet TK 1 T PO ONCE D PRN Active hydrOXYchloroQUINE 200 mg twice 0 (PLAQUENIL) 200 mg tablet daily. 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, estrogen receptor positive (HCC) Active ezetimibe (ZETIA) 10 mg TAKE 1/2 45 tablet 2 tabletIndications: TABLET BY 1 Hyperlipidemia, MOUTH DAILY unspecified hyperlipidemia type, Coronary artery disease involving [place] coronary artery of [place] heart with angina pectoris (HCC) Active Problems Problem Noted Date Pneumothorax 11/18/2019 Gastropathy 08/01/2016 Chest pain 07/23/2016 Colonic stricture 04/04/2016 Chronic diarrhea 04/04/2016 Nausea and vomiting 04/04/2016 Diverticular disease 04/04/2016 Pacemaker battery depletion 04/08/2014 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 s/p left breast stereo biopsy 03/03/14 Patsy Simental cStage I T1N0M0 grade 2 IDC 7 mm by mammography ER 97% OR 51% Her-2 negative Ki-67 20% s/p left simple mastectomy and SNBx ICC Stage I T1N0M0 grade 2 IDC (2:00) 9 mm 1 sentinel node negative ER 100% OR 50% Her-2 negative Ki-67 15 % Oncology: Dr. Giselle Williamson 06/2014 - Genetics: BrCA I and II negative 03/29 14 Third degree heart block 03/13/2010 Overview: Formatting of this note might be differ ent from the original. Third-degree heart block with dual-gaby aminah permanent Medtronic pacemaker implanted 07/17 at [facility]. Family history of ischemic heart disease 03/13/2010 Atrial premature beats 03/13/2010 Overview: Formatting of this note might be differ ent from the original. Seen by Dr. De La Torre who recommended in creasing her metoprolol to 25 mg twice a day. DM (diabetes mellitus) 03/13/2010 Overview: Formatting of this note might be differ ent from the original. Diagnosed in the summer of 2008. a. hospitalized in January at [facility] with elevated blood sugar of approximately 280. Angina 07/31/2007 CAD (coronary artery disease) 07/31/2007 Overview: Formatting of this note might be differ ent from the original. 1. Bare metal stent placed in the anter ior descending coronary artery on 08/01/07 at [facility] with jailed diagonal an d a kissing balloon inflation done with 0% residual stenosis. 2. 11/24/07 drug eluting stent placed in the anterior descending coronary artery because of high grade in stent r estenosis of the previously placed bare metal stent. 3. 12/25/07 - Exercise echo demonstrati ng no definite ischemia. 4. 02/19/08 follow-up catheterization d emonstrating a patent stent in the anterior descending coronary artery wit h no high grade lesions and a normal ejection fraction. 5. 09/21/2008, thallium study demonstr ating an adequate ejection fraction of 80 percent with no evidence of myoca rdial ischemia. 6. 07/31/16: Reg stress thall: EF 61%. normal with no evidence of significant myocardial ischemia 7. 03/10/19: Echo: LVEF 55%. Normal righ t ventricular cavity size with mild reduction in systolic function. Mild mi tral valve regurgitation. No valvular stenosis noted. PASP 21 8. 06/14/20: Echo. EF~65%. Grade 1 diasto lic dysfunction. Mild mitral regurgitation. PASP 21 L ast Assessment & Plan: Formatting of this note might be differ ent from the original. She was instructed to restart aspirin 8 1 mg daily. Given her history and her symptoms of chest pain that she rep orts are similar to symptoms prior to her stent placement, she was asked t o undergo an regaadenosine thallium prior to her generator change. Abnormal cardiovascular stress test SSS (sick sinus syndrome) Cardiac pacemaker in situ Last Assessment & Plan: Formatting of this note might be differ ent from the original. She has reached BRANDI. We have called her oncologist and as of right now she is not scheduled to undergo any radiati on or chemotherapy. She will undergo a pacemaker generator change on Saturday. We recommended that she wait 3 weeks prior to having her left breast m astectomy. We will plan to put in a MRI compatible generator. Her leads are not MRI approved, however other than the insulation, they are exactly l ricardo the 5076 leads that have been approved for MRI use. Chronic low back pain Overview: Formatting of this note might be differ ent from the original. 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 Hypertension Last Assessment & Plan: Formatting of this note might be differ ent from the original. Well controlled on current therapy. Hyperlipidemia Resolved Problems Problem Noted Date Resolved Date Other screening mammogram 08/22/2007 02/18/2008 Encounters Care Team Description Date Type Specialty David Jo, LAURA Appointment Request 02/09/2021 Telephone Cardiology Doctor, Miscellaneous Mary Escamilla MBBS Preop Exam 01/12/2021 Office Visit Cardiology 01/12/2021 Travel Levon Blount, LAURA 01/10/2021 Telephone Cardiology Macie Gallego MD 12/28/2020 Hospital Cardiology Encounter AngAlexis John Remote ICD/PM Check (Missed schedule tra nsmission from 12/14/20) 12/28/2020 Telephone Cardiology Nicola Quiros MD Medication Refill (ezetimibe) 12/26/2020 Refill Cardiology Padmaja Lopez APRN-APPAREL DESIGNER 12/19/2020 Hospital Radiology Encounter O'HeenaChiquis MD Malignant neoplasm of upper-outer quadra nt of left breast in female, estrogen receptor positive (HCC) (Primary Dx) 12/19/2020 Orders Only Oncology 12/19/2020 Travel 12/04/2020 Emergency Emergency Medicine 12/04/2020 Travel from Last 3 Months Immunizations Name Administration Dates Next Due Surgical History Surgery Date Site/Laterality Comments HX CORONARY STENT jul 2007 barer metal stent i n LAD PLACEMENT RHYTHM DEVICE PLACEMENT jul 25 permanent pace maker 2006 LYMPH NODE BIOPSY HX APPENDECTOMY HX HEART CATHETERIZATION HX CHOLECYSTECTOMY HX HYSTERECTOMY 1972 BREAST LUMPECTOMY left/2003. right/1965. HX MASTECTOMY 2013 left UPPER GASTROINTESTINAL 2016 N/A ESOPHAG OGASTRODUODENOSCOPY performed by MAGDALENA Moreno MD at [facility] ENDO/GI COLONOSCOPY 04/30/2016 N/A COLONOSCOPY per formed by Marilyn Moreno MD at [facility] ENDO/GI Medical History Medical History Date Comments Abnormal cardiovascular stress test Cardiac pacemaker in situ Chronic low back pain Hypertension Hyperlipidemia Neoplasm of unspecified nature, site unspecified SSS (sick sinus syndrome) (HCC) DM (diabetes mellitus) (HCC) 03/13/2010 Breast cancer (HCC) Back pain Pacemaker battery depletion 04/08/2014 Osteoporosis Ulcer Bowel obstruction (HCC) Family History Medical History Relation Name Comments Cancer-Breast Daughter genetics negative f or mutation Cancer-Prostate Father 60s Heart problem Father pacemaker High Cholesterol Father Hypertension Father Cancer Maternal Aunt skin. 70s. Cancer Maternal bone. 60s. Grandfather Diabetes Maternal Grandfather Stroke Maternal Grandfather Diabetes Maternal Grandmother Stroke Maternal Grandmother Arthritis-osteo Mother Heart Failure Mother Heart Surgery Mother open heart surgery, stents placed High Cholesterol Mother Hypertension Mother Cancer-Breast Paternal Aunt 70s Diabetes Paternal Aunt Cancer-Breast Paternal Aunt 70s Cancer-Breast Paternal Aunt 70s Cancer-Breast Paternal Aunt 40s Diabetes Paternal Grandmother Diabetes Paternal Uncle Cancer-Ovarian Neg Hx Relation Name Status Comments Brother Daughter Alive Father Maternal Aunt Maternal Grandfather Maternal Grandmother Mother Paternal Aunt Paternal Aunt Paternal Aunt Paternal Aunt Paternal Grandmother Paternal Uncle Sister Alive Social History Date Tobacco Use Types Packs/Day Years Used Never Smoker Smokeless Tobacco: Never Used Comments Alcohol Use Standard Drinks/Week No 0 (1 standard drink = 0.6 o z pure alcohol) Sex Assigned at Date Recorded Female 11/16/2019 4:04 PM CDT Last Filed Vital Signs Reading Time Taken Comments Vital Sign 118/74 01/12/2021 2:44 PM CDT Blood Pressure 72 01/12/2021 2:44 PM CDT Pulse 36.6 C (97.9 F) 12/04/2020 11:09 AM CDT Temperature 16 01/12/2021 2:44 PM CDT Respiratory Rate 96% 01/12/2021 2:44 PM CDT Oxygen Saturation - - Inhaled Oxygen Concentration 58.5 kg (129 lb) 01/12/2021 2:44 PM CDT Weight 161.3 cm (5' 3.5") 01/12/2021 2:44 PM CDT Height 22.49 01/12/2021 2:44 PM CDT Body Mass Index Plan of Treatment Health Maintenance Due Date Last Done Comments MEDICARE ANNUAL WELLNESS 1942 VISIT PNEUMONIA (PPSV23) 1948 VACCINE (1 of 2 - PPSV23) DILATED EYE EXAM 1960 DTAP/TDAP VACCINES (1 - 1960 Tdap) FOOT EXAM 1960 HBA1C 1960 HEPATITIS C SCREENING 1960 MICROALBUMIN 1960 PHYSICAL (COMPREHENSIVE) 1960 EXAM SHINGLES RECOMBINANT 1992 VACCINE (1 of 2) OSTEOPOROSIS 2007 SCREENING/MONITORING INFLUENZA VACCINE 03/10/2021 COVID-19 VACCINE Completed 08/19/2020, 07/22/2020 Goals Goal Patient Associated Recent Progress Patient-Stat Aut hor Goal Type Problems ed? GOAL General Yes Jeffery Graf, RN Note: To get bettter Implants Device Identifier Shelf Expiration Date Model / Serial / L ot Implanted Type Area Manufactur er Pace Maker Pacemaker Nerve Stimulator Procedures Comments Procedure Name Priority Date/Time Associated Diag nosis DEVICE EVALUATION - Routine 12/28/2020 SSS (sick sinus syndrome) REMOTE PPM CHARGES 9:16 AM CDT (HCC) Cardiac pacemaker in situ MAMMO SCREEN UNI/CHANELL/CAD Routine 12/19/2020 Rosa gnant neoplasm of 9:46 AM CDT upper-outer quadrant of left breast in female, estrogen receptor positive (HCC) from Last 3 Months Results * DEVICE EVALUATION - REMOTE PPM (12/28/2020 9:16 AM CDT) Atrial Lead Medtronic [facility] Liquor Establishment Manager Atrial Lead 4076-45cm [facility] Model # Atrial Lead [id number] [facility] Serial # Atrial Lead 07/25/2006 [facility] Implant Date RV Lead Medtronic [facility] Liquor Establishment Manager RV Lead Model # 4076-52cm [facility] RV Lead Serial [id number] [facility] # RV Lead Implant 07/25/2006 [facility] Date Device Type IPG [facility] Atrial Lead NA [facility] Diaph. Stimulation Atrial Lead active fixation [facility] Fixation Atrial Lead Pin IS1 [facility] Connector Atrial Lead Bipolar [facility] Polarity RV Lead Diaph. NA [facility] Stimulation RV Lead active fixation M[facility] Fixation RV Lead Pin IS1 [facility] Connector ICD Device [employer] [facility] [place] Transmitter Compatible Remote Cellular adaptor [facility] Connectivity Accssory Serial [id number] [facility] Number Generator Medtronic MURJ Liquor Establishment Manager Generator Model Mateusz LARSON [id number] [facility] # Generator [id number] [facility] Serial # Generator [id number] [facility] Implnat Date EP DEVICE Primary Chemistry Professor Dr. Chula CHAPARRO PATIENT NOTES Pacemaker yes [facility] Dependant On no [facility] Anticoagulation EP SYSTEM MRI yes [facility] CONDITIONAL Specimen Narrative Performed At [facility] Title: Normal Remote: No Events * Normal Device Function * Alerts or events: None * Battery: OK, 2.25 yrs * Sensing, impedance and thresholds rev iewed * Programmed parameters reviewed * Presenting rhythm ASVP 70s-90sbpm * Heart Rate Histograms reviewed * No significant changes noted Performing Organization Address City/State/ZIP Code P janel Number M[facility] * MAMMO SCREEN UNI/CHANELL/CAD (12/19/2020 9:46 AM CDT) Specimen Impressions Performed At ASSESSMENT: BIRAD 1-Negative [facility] RESULTS RECOMMENDATION: Routine screening mammogram of the feroz pearce breast in 1 year. Narrative Performed At Last mammogram was performed 3 years and 3 months ago . [facility] RESULTS [id number] MAMMO SCREEN UNI/CHANELL/CAD: FEROZ T BREAST - DECEMBER 19, 2020 - 3D Procedure 3D Routine views. 2D Synthetic Routine views. Prior study comparison: December 21, 2019, right breast [id number] MAMMO SCREEN UNI/CHANELL/CAD performed at [facility]. December 21, 2019, right breast I [id number] MAMMO DIAGNOSTIC RT/CHANELL performed at [facility]. October 27, 2018, right breast [id number] MAMMO SC REEN UNI/CHANELL/CAD performed at [facility]. September 12, 2017, mammogram. September 18, 2016, mamm ogram. There are scattered areas of fibrogland ular density. 3D and reconstructed 2D images were obtained. No new suspicious abnormality is seen. No significant change when compared to prior studies. Electronically signed and approved by: Marcelino Escalante M.D. [id number] Procedure Note Interface, Radiant Results - 12/19/2020 9:54 AM CDT Last mammogram was performed 3 years and 3 months ago. [id number] MAMMO SCREEN UNI/CHANELL/CAD: RIGHT BREAST - DECEMBER 19, 2020 - 3D Procedure 3D Routine views. 2D Synthetic Routine views. Prior study comparison: December 21, 2019, right breast [id number] MAMMO SCREEN UNI/CHANELL/CAD performed at [facility]. December 21, 2019, right breast [id number] MAMMO DIAGNOSTIC RT/CHANELL performed at [facility]. October 27, 2018, right breast [id number] MAMMO SCR EEN UNI/CHANELL/CAD performed at [facility]. September 12, 2017, mammogram. September 18, 2016, mammog venu. There are scattered areas of fibroglandular density. 3D and reconstructed 2D images were obtained. No new suspicious abnormality is seen. No significant change when compared to prior studies. Electronically signed and approved by: Marcelino Escalante M.D. [id number] IMPRESSION ASSESSMENT: BIRAD 1-Negative RECOMMENDATION: Routine screening mammogram of the right breast in 1 year. Performing Organization Address City/State/ZIP Code P janel Number [facility] RESULTS from Last 3 Months Insurance Type Payer Benefit Subscriber ID Effective Phone Address Plan / Dates Group Medicare MEDICARE MEDICARE [id number] 2007-P PART A AND resent B Medicare BCBS JOCELYN BCBS [id number] 2020-P SUPPLEMENT resent [phone] [facility] (Home) [place] [address] Advance Directives Patient Province Archivist Explanation Type Date Recorded Advance 05/14/2014 8:59 AM Directive/DPOA Advance Directives 02/04/2013 7:38 AM and Living Will Advance Directives 09/24/2012 4:25 PM and Living Will Advance Directives 07/23/2012 7:35 AM and Living Will Advance Directives 04/28/2012 8:09 AM and Living Will Advance Directives 04/24/2012 9:12 AM and Living Will Advance Directives 01/23/2012 7:35 AM and Living Will Advance Directives 10/23/2011 8:53 AM and Living Will Advance Directives 10/17/2011 10:57 AM and Living Will Advance Directives 08/30/2011 12:00 AM and Living Will Advance Directives 08/28/2011 12:00 AM and Living Will Advance Directives 07/25/2011 12:00 AM and Living Will Advance Directives 05/15/2011 12:00 AM and Living Will Advance Directives 03/29/2011 12:00 AM and Living Will Advance Directives 12/28/2010 12:00 AM and Living Will Advance Directives 12/20/2010 12:00 AM and Living Will Advance Directives 10/25/2010 12:00 AM and Living Will Advance Directives 08/08/2010 12:00 AM and Living Will Date Inactivated Comments Code Status Date Activated 11/21/2019 3:31 PM Full Code 11/18/2019 12:16 AM Provider has discussed Code Status Yes w/Patient or Family? 05/15/2014 4:34 PM Full Code 05/14/2014 3:41 PM Provider has discussed Code Status No, discussion no t w/Patient or Family? necessary based on Dx
--- OUTSIDE RECORDS SUMMARY | 2021-02-23 23:16 | XMS REPORT | Clinical Summary ---
Author Author [facility] Organization [facility] Address Unknown Phone Unavailable Care Team Providers Care Rivet Machine Operator Name Role Phone Augustine Romeo MD PCP Source Comments [facility] (Labor and Delivery) documents do not appear in the [facility] Allergies Comments Active Allergy Reactions Severity Noted Date Metronidazole Hives 11/03/2011 Plastic tape makes my skin sore and irritated. Other Other (See 11/03/2011 Comments) Medications * Please verify current medications with patient. End Date Status Medication Sig Dispensed Refills Start Date Active niacin (NIASPAN) 500 mg Take 500 mg 0 SR tablet by mouth two times a day. Active metoprolol succinate (FOR Take 25 mg by 0 TOPROL-XL) 25 mg ER mouth two tablet times a day. Active rosuvastatin (FOR Take 5 mg by 0 CRESTOR) 5 mg tablet mouth once a day. Active HYDROcodone-acetaminophen Take 1 tablet 0 , 5-325 mg/tab, (FOR by mouth NORCO) 5-325 mg per every four tablet hours, as needed. Active OTHER 0 Active gabapentin (FOR Take 1,800 mg 0 NEURONTIN) 100 mg capsule by mouth at bedtime. Active ezetimibe (FOR ZETIA) 10 Take 5 mg by 0 mg tablet mouth once a day. Active hydrochlorothiazide (FOR Take 20 mg by 0 HYDRODIURIL) 25 mg tablet mouth as needed. Active ondansetron HCl (FOR Take 1 tablet 20 tablet 0 ZOFRAN) 4 mg tablet by mouth 2 every eight hours as needed for Nausea. Active ondansetron HCl (FOR Take 1 tablet 10 tablet 0 ZOFRAN) 4 mg tablet by mouth 2 every eight hours as needed for Nausea. Active Problems Problem Noted Date Nausea 11/03/2011 Social History Date Tobacco Use Types Packs/Day Years Used Never Smoker Comments Alcohol Use Standard Drinks/Week No 0 (1 standard drink = 0.6 o z pure alcohol) Sex Assigned at Date Recorded Not on file Last Filed Vital Signs Reading Time Taken Comments Vital Sign 125/58 11/03/2011 9:03 PM CDT Blood Pressure 86 11/03/2011 9:03 PM CDT Pulse 36.4 C (97.5 F) 11/03/2011 6:03 PM CDT Temperature 18 11/03/2011 9:03 PM CDT Respiratory Rate 93% 11/03/2011 9:03 PM CDT Oxygen Saturation - - Inhaled Oxygen Concentration 68 kg (150 lb) 11/03/2011 6:03 PM CDT Weight 165.1 cm (5' 5") 11/03/2011 6:03 PM CDT Height 24.96 11/03/2011 6:03 PM CDT Body Mass Index Plan of Treatment Health Maintenance Due Date Last Done Comments COVID-19 Vaccine (1) 1952 DXA Scan 2007 Pneumococcal Vaccine: 65+ 2007 Years (1 of 1 - PPSV23) Influenza Vaccine (#1) 2021 HPV Vaccine Aged Out No longer eligible based on patient's age to complete this topic Results Not on filefrom Last 3 Months Insurance Type Payer Benefit Subscriber ID Effective Phone Address Plan / Dates Group Medicare MEDICARE ZZMEDICARE [id number] Effective [phone] PART for all [id number] [place] [address] PPO [place] [id number] Effective [phone] [phone] - for all [facility] dates [id number] L/CAP [phone] [facility] (Home[facility] [place], [place] [address] Advance Directives Patient Pbx Repairer Explanation Type Date Recorded Living Will CPR Directives Durable Medical POA Care Teams Start Date End Date Rivet Machine Operator Relationship Specialty 11/03/11 Augustine Romeo MD PCP - General Family Medicine
[2021-02-23 23:17] VITALS: BP 144/63
--- OUTSIDE RECORDS SUMMARY | 2021-02-23 23:17 | XMS REPORT | Clinical Summary ---
Author Author Admin, Emily Nieto Organization [facility] Address Unknown Phone Unavailable Allergies, Adverse Reactions, Alerts Allergy Name Reaction Description Start Date Severity Status Pr ovider FLAGYL Moderate No Longer Active Stefano Gu MD BACTRIM Moderate No Longer Active Stefano Gu MD CIPRO Moderate No Longer Active Stefano Gu MD SULFA Moderate Active Stefano zee MD FLAGYL Moderate No Longer Active Anamariarl Garcia GOSPEL WORKER ADHESIVE TAPE Moderate Active Anamaria Indra t GOSPEL WORKER CIPRO Moderate Inactive Anamaria Garcia GOSPEL WORKER FLAGYL Moderate Inactive Anamaria Garcia GOSPEL WORKER BACTRIM Moderate Inactive Anamaria Garcia GOSPEL WORKER Conditions or Problems Problem Name Problem Code Onset Date Status Entry Date Provider Comment Standard Description Annotate BMI 23-23.9 Active Stefano Gu MD Body Mass Index between 19-24, adult Incomplete Bladder Emptying 788.20 Active Stefano Gu MD Retention of urine, unspecified Recurrent bacterial cystitis 595.9 Active Stefano Gu MD Cystitis, unspecified Medication List Medication Instructions Start Date Stop Date Generic Name NDC Status Provider Patient Instruction MACROBID 100 MG ORAL CAPSULE 1 capsule daily for suppression 06/12/09 NITROFURANTOIN MONOHYD MACRO 74491050665 No Longer Active Stefano Gu MD Active OLOPATADINE HCL 0.2 % OPHTHALMIC SOLUTION 1 drop in each eye daily OLOPATADINE HCL 06898857817 Active Anamaria Jose JOSHUAN Active ROSUVASTATIN CALCIUM 10 MG ORAL TABLET once daily ROSUVASTATIN CALCIUM 68213919230 [facility] EZETIMIBE 10 MG ORAL TABLET 1/2 tablet daily EZET IMIBE 79982585611 [facility] DIAZEPAM 5 MG ORAL TABLET once daily as needed DIAZEPAM 08285293894 [facility] Active FLUOXETINE HCL 20 MG ORAL CAPSULE once daily FL UOXETINE HCL 42725191711 [facility] ONDANSETRON 4 MG ORAL TABLET DISINTEGRATING three times regan y as needed ONDANSETRON 38469587288 [facility] LETROZOLE 2.5 MG ORAL TABLET once daily LETROZOLE 66906104414 [facility] HYDROXYCHLOROQUINE SULFATE 200 MG ORAL TABLET 1 tablet twice daily HYDROXYCHLOROQUINE SULFATE 54316934533 [facility] AMBIEN 5 MG ORAL TABLET as needed at bedtime ZO LPIDEM TARTRATE 44039065031 [facility] Active NITROGLYCERIN 0.4 MG SUBLINGUAL TABLET SUBLINGUAL plac e under tongue every 5 minutes as needed for chest pain NITROGLYCERIN 26953632871 [facility] NIACIN 500 MG ORAL TABLET 1 tablet twice daily NI ACIN 60667594059 [facility] Active PROMETHAZINE HCL 25 MG ORAL TABLET as needed P ROMETHAZINE HCL 74495445548 [facility] CYANOCOBALAMIN 1000 MCG/ML INJECTION SOLUTION once monthly CYANOCOBALAMIN 95253151207 [facility] Active PANTOPRAZOLE SODIUM 40 MG ORAL TABLET DELAYED RELEASE once daily PANTOPRAZOLE SODIUM 10546541676 [facility] Act[facility] ve COMPRO 25 MG RECTAL SUPPOSITORY daily PROCHLO RPERAZINE 37454284293 Active Anamaria [facility] [place] Active 24HR ALLERGY RELIEF 180 MG ORAL TABLET as needed FEXOFENADINE HCL 52666859251 Active Anamaria Garcia GOSPEL WORKER Active METOPROLOL SUCCINATE ER 50 MG ORAL TABLET EXTENDED REL EASE 24 HOUR 1/2 tablet daily METOPROLOL SUCCINATE 47040535386 Active Anamaria Garcia GOSPEL WORKER Active ASPIRIN 325 MG ORAL TABLET once daily ASPIRIN 4987437 5429 Active Anamaria Garcia GOSPEL WORKER Active CYCLOBENZAPRINE HCL 10 MG ORAL TABLET 1 tablet 3 times daily 08/16 CYCLOBENZAPRINE HCL 52315371629 Active Anamaria Garcia GOSPEL WORKER Acti ve MACROBID 100 MG ORAL CAPSULE 1 capsule daily for suppression 06/12/09 MACROBID 100 MG ORAL CAPSULE 9466608 NITROFURANTOIN MONO HYD MACRO Inactive Diagnostic Results Date Name Value Unit Range Description Office Visit: CN-frequent UTI - Chemistr y RBC, urine, dipstick negative protein, total urine random negative mg/dL Office Visit: CN-frequent UTI - Urinalys is urinalysis, routine Clean Catch ketones, urine, by test strip negative bilirubin, urine negative glucose, urine, semiquantitative negative pH, urine, semiquantitative 6 specific gravity, urine 1.010 urine color yellow appearance, urine clear leukocyte esterase, urine, by dipstick negative nitrite, urine, semiquantitative negative urobilinogen, urine, semiquantitative (dipstick) negative protein, urine, semiquantitative (dipstick) negative Office Visit: f/u UTI - Chemistry RBC, urine, dipstick negative protein, total urine random negative mg/dL Office Visit: f/u UTI - Urinalysis urinalysis, routine Clean Catch ketones, urine, by test strip negative bilirubin, urine negative glucose, urine, semiquantitative negative pH, urine, semiquantitative 6 specific gravity, urine 1.015 urine color yellow appearance, urine clear leukocyte esterase, urine, by dipstick negative nitrite, urine, semiquantitative negative urobilinogen, urine, semiquantitative (dipstick) negative protein, urine, semiquantitative (dipstick) negative Encounters Code Encounter Date Provider Facility CPT-84489 Level 3 Est. Patient 16:45:06 CDT J Azam mcmanus MD [facility] Surgery CPT-10760 Level 4 New Patient 13:45:25 APPLIANCE TECHNICIAN Stefano crow MD [facility] Procedures Code Procedure Name Date Entry Date Standard Desc ription CPT-49923 Cystoscopy 16:45:06 CDT CPT-56422 Bladder Scan 16:45:06 CDT CPT-06196 Dil F ureth int 13:45:25 APPLIANCE TECHNICIAN CPT-61634 Bladder Scan 13:45:25 APPLIANCE TECHNICIAN CPT-ZB0190S (4274F 2P) Patient Reason Influenza immu nization not administered 13:45:25 APPLIANCE TECHNICIAN
--- OUTSIDE RECORDS SUMMARY | 2021-02-23 23:17 | XMS REPORT | Clinical Summary ---
Author Author [facility] Organization [facility] Address Unknown Phone Unavailable Care Team Providers Care Administrative Underwriter Name Role Phone PCP Unavailable Allergies Comments Active Allergy Reactions Severity Noted Date Seasonal Allergies 11/22/2020 Medications End Date Status Medication Sig Dispensed Refills Start Date Active cetirizine (ZYRTEC) 5 MG Take 5 mg by 0 tablet mouth daily. Active hydroxyamphetamine-tropic Administer to 0 amide 1-0.25 % Drop eye. Active niacin (NIASPAN) 1000 MG Take 1,000 mg 0 CR tablet by mouth nightly. Active aspirin 325 MG tablet Take 325 mg 0 by mouth daily. Active calcium-magnesium 300-300 Take by 0 mg Tab mouth. Active vit D3-vit Take by 0 D-iwlgwrhzv-aoes mouth. [phone] njsn-hwj-ft-mg Tab Active cranberry conc-ascorbic Take by 0 acid 4,200-20 mg cap mouth. Active magnesium oxide 500 mg Take by 0 Tab mouth. Active polyethylene glycol Take 17 g by 0 (GLYCOLAX) 17 gram/dose mouth daily. powder Active cholecalciferol, vitamin Take by 0 D3, (VITAMIN D3) 125 mcg mouth. (5,000 unit) Tab Active letrozole (FEMARA) 2.5 mg Take 2.5 mg 0 tablet by mouth daily. Active rosuvastatin (CRESTOR) 10 Take 10 mg by 0 MG tablet mouth daily. Active sucralfate (CARAFATE) 1 Take 1 g by 0 gram tablet mouth 4 (four) times a day. Do not take within 30min of antacid or 2hrs of other meds Active FLUoxetine (PROZAC) 20 mg Take 20 mg by 0 capsule mouth daily. Active diazePAM (VALIUM) 5 MG Take 5 mg by 0 tablet mouth every 6 (six) hours as needed for anxiety. Active ezetimibe (ZETIA) 10 mg Take 10 mg by 0 tablet mouth 2 (two) times a day. Active meloxicam (MOBIC) 7.5 MG Take 7.5 mg 0 tablet by mouth daily. Active cyclobenzaprine Take 10 mg by 0 (FLEXERIL) 10 MG tablet mouth 3 (three) times a day as needed for muscle spasms. Active metoprolol succinate Take 50 mg by 0 (TOPROL-XL) 50 MG 24 hr mouth daily. tablet Active zolpidem (AMBIEN) 5 MG Take 5 mg by 0 tablet mouth nightly as needed for sleep. Active melatonin 3 mg Tab tablet Take 3 mg by 0 mouth nightly. Active ondansetron (ZOFRAN) 4 MG Take 4 mg by 0 tablet mouth every 8 (eight) hours as needed for nausea. Active HYDROcodone-acetaminophen Take 1 tablet 0 (NORCO) 10-325 mg per by mouth tablet every 6 (six) hours as needed for pain. Active nitrofurantoin Take 100 mg 0 (MACRODANTIN) 100 MG by mouth capsule daily. Active Problems Problem Noted Date Essential hypertension 11/22/2020 Last Assessment & Plan: Formatting of this note might be differ ent from the original. Chronic Stable at goal without side eff ects of complications, mod risk Continue all currently effective medica tions and interventions without changes. Continue efforts for weight m anagement and improving activity Mixed hyperlipidemia 11/22/2020 Last Assessment & Plan: Formatting of this note might be differ ent from the original. Chronic Stable at goal without side eff ects of complications, mod risk Continue all currently effective medica tions and interventions without changes. 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 Post [place] and pacemaker about 14 years ag o replaced once already and pending a second replacement NO current angina Status post placement of cardiac pacemaker 1 SDAT (senile dementia of Alzheimer's type) 1 Last Assessment & Plan: Formatting of this note might be differ ent from the original. on the [facility] screening tools with a positive history given by her very attentive daughter who is here wit h her today Check multiple labs and imaging for rev ersible causes Dysuria 11/22/2020 Last Assessment & Plan: Formatting of this note might be differ ent from the original. Recent complicated UTi with hosiptial a dmission and treated. Currently with painful urination and increase d freque ncy and urgency Check repeat culture Falls 11/22/2020 Last Assessment & Plan: Formatting of this note might be differ ent from the original. 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 Right posterior pelvic pain post fall y esterday with stable ambulation and no evidence of any compressive neuroapt hy in the lumbar spine or sacral region XR pelvis and right hip Encounters Care Team Description Date Type Specialty Olvin Juarez MD 11/24/2020 Documentation Primary Care Olvin Juarez MD 11/23/2020 Documentation Primary Care from Last 3 Months Immunizations Name Administration Dates Next Due Moderna Sars-cov-2 08/19/2020, 07/22/2020 Social History Date Tobacco Use Types Packs/Day Years Used Never Smoker Smokeless Tobacco: Never Used Comments Alcohol Use Standard Drinks/Week Never 0 (1 standard drink = 0.6 o z pure alcohol) Alcohol Habits Answer Date Recorded How often do you have a drink containing alcohol? Never 11/22/2020 How many drinks containing alcohol do you have on No t asked a typical day when you are drinking? How often do you have six or more drinks on one Not asked occasion? Sex Assigned at Date Recorded Not on file Last Filed Vital Signs Not on file Plan of Treatment Health Maintenance Due Date Last Done Comments Advance Directive has 1940 been filed Dementia Cognitive 1942 Assessment # Medicare Annual Wellness 1942 Td/Tdap# 1940 Zoster Vaccine# (1 of 2) 1992 Advance Directive 2007 Conversation Depression Screening 2007 PHQ-9 # Osteoporosis Screening 2007 Patient Needs Advance 2007 Directive Influenza Vaccine (#1) 2021 Fall Risk Assessment # 11/22/2021 11/22/2020 Pneumococcal Vaccine: 65+ Completed 06/23/2013 Years COVID-19 Vaccine Completed 08/19/2020, 07/22/2020 Results Not on filefrom Last 3 Months Insurance Type Payer Benefit Subscriber ID Effective Phone Address Plan / Dates Group Medicare MEDICARE MEDICARE [id number] 2007-P [place] [address] [place] B resent [place], [place] BLUE CROSS BLUE [facility] CAP [id number] 1-P EDWINA ZENG [phone] [facility] (Home) [place], [place] [address] Emily Gu Personal/F Self 1940 [address] [facility] (Home) [place], [place] [address] Advance Directives For more information, please contact: [phone] 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
--- OUTSIDE RECORDS SUMMARY | 2021-02-23 23:17 | XMS REPORT | Encounter Summary ---
Author Author [facility] Organization [facility] Address Unknown Phone Unavailable Care Team Providers Care Medical Instrument Cable Fabricator Name Role Phone Amena Arrington MD 100 Zohaib Hernandes MD Unavailable Joel Caceres MD Unavailable Diego Cruz MD Unavailable Lorna Trujillo PA-C Unavailable Jose J Desai MD Unavailable Shahida Adan RN Unavailable Unavailable Diann Almonte MD PCP Reason for Visit * Reason Onset Date Comments Remote ICD/PM Check 12/28/2020 Missed schedule tr ansmission from 12/14/20 Encounter Details Care Team Description Date Type Department Alexis Ang Remote ICD/PM Check (Missed schedule tra nsmission from 12/14/20) 12/28/2020 Telephone Cardiology: [facility] [address] [place] [address] Social History Date Tobacco Use Types Packs/Day Years Used Never Smoker Smokeless Tobacco: Never Used Comments Alcohol Use Standard Drinks/Week No 0 (1 standard drink = 0.6 o z pure alcohol) Sex Assigned at Date Recorded Female 11/16/2019 4:04 PM CDT Date Recorded COVID-19 Exposure Response 12/19/2020 8:34 AM CDT In the last month, have you [...] encounter Miscellaneous Notes * Telephone Encounter - Alexis Ang - 01/04/2021 7:28 AM CDT Remote transmission was received on 12/28/20 at 07:15am next send date is . CDJ * Telephone Encounter - Alexis Ang - 12/28/2020 7:42 AM CDT Patient was scheduled for a [employer] on 12/14/20 that has not been rec eived. Patient was instructed to send a manual transmission. Instructed if the transmi tter does not appear to be working properly, they need to contact the device com [facility] directly. Patient was provided with that contact number. Requested the michell ent send us a Stiot message or contact our device nurses at [phone] to le t us know after they have sent their transmission. Called [employer] Phone number at [phone], Spoke with Emily. Patient verbalized understanding. documented in this encounter Plan of Treatment Not on filedocumented as of this encounter Goals Goal Patient Associated Recent Progress Patient-Stat Aut hor Goal Type Problems ed? GOAL General Yes Jeffery Graf, RN Note: To get bettter documented as of this encounter Visit Diagnoses Not on filedocumented in this encounter Additional Health Concerns Assessment Noted Time A Body Mass Index follow-up plan has been documented for the patient 05/18/2019 12:45 PM COPY LATHE OPERATOR PHQ-2 Depression Total Score: 0 10/18/2020 11:31 AM CDT documented as of this encounter
--- OUTSIDE RECORDS SUMMARY | 2021-02-23 23:17 | XMS REPORT | Encounter Summary ---
Author Author [facility] Organization [facility] Address Unknown Phone Unavailable Care Team Providers Care Product Safety Associate Name Role Phone Amena Arrington MD 100 Zohaib Hernandes MD Unavailable Joel Caceres MD Unavailable Diego Cruz MD Unavailable Lorna TrujilloC Unavailable oJse J Desai MD Unavailable Shahida Adan RN Unavailable Unavailable Diann Almonte MD PCP Reason for Referral * Consult, Test & Treat (Routine) Referred By Contact Referred To Contact Status Reason Specialty Diagnoses / [place] [id number] [employer] Share Your Passion! [address] [place] [address] New Request Procedures REQUEST FOR CARDIOLOGY APPOINTMENT Electronically signed by Chet Bah MD at Reason for Visit * Reason Comments Preop Exam Encounter Details Care Team Description Date Type Department Doctor, Miscellaneous Mary Escamilla MBBS [address] [place] [address] Preop Exam 01/12/2021 Office Visit Cardiology: [facility] [address] [facility] [address], [address] [place] [address] Social History Date Tobacco Use Types Packs/Day [...] / COVID-19? documented as of this encounter Last Filed Vital Signs Reading Time Taken Comments Vital Sign 118/74 01/12/2021 2:44 PM CDT Blood Pressure 72 01/12/2021 2:44 PM CDT Pulse - - Temperature 16 01/12/2021 2:44 PM CDT Respiratory Rate 96% 01/12/2021 2:44 PM CDT Oxygen Saturation - - Inhaled Oxygen Concentration 58.5 kg (129 lb) 01/12/2021 2:44 PM CDT Weight 161.3 cm (5' 3.5") 01/12/2021 2:44 PM CDT Height 22.49 01/12/2021 2:44 PM CDT Body Mass Index documented in this encounter Functional Status Date of Assessment [...] impairment: No documented as of this encounter Patient Instructions * Patient Instructions* Mary Escamilla MBBS - 01/12/2021 2:20 PM CDT It was nice to see you in clinic today. We discussed: Your overall risk of for the upcoming orthopedic procedure. I would like to make the following medication adjustments: Would hold the aspirin 7-10 days prior to the surgery and would resume once t he bleeding risk is not prohibiting ( would discuss with the surgeons) Otherwise continue the same medications as you have been doing. Please call us with any questions or concerns. The Cardiovascular Medicine "Red Team" (Lilliana Martin) number is [phone]. Lilliana bryan is our red team nurse if you have questions. If you have not heard the results of your testing in more than 1 week after it h as been performed, please give us a call so that we may investigate further. documented in this encounter Progress Notes * Mary Escamilla MBBS - 01/12/2021 2:20 PM CDT Date of Service: 01/12/2021 Emily Gu is a 80 y.o. female. HPI Ms. Gu, is a very pleasant 80 years old female patient with pmh of CAD s.p stenting to her LAD in 2007 ( had a bare metal stent, with a sebsequent KEESHA in the same year due to IST), CHB s,p dual chamber PPM, HTN, HLD, atrial dysrhythmi a who presented today at the request of her orthopedic surgeon for a pre-op eval uation and medical optimization prior to her spinal surgery. Patient is following Dr. Ceja, in [facility] orthopedic [address] , [address] [place] [address], phone number [phone], fax: [phone]. 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 She had her last echo done early of this year which showed a normal EF with Grad e 1 diastolic dysfunction with mild MR. Last stress test was in 2019, which did not reveal any evidence of ischemia. Vitals: 01/12/21 1444 BP: 118/74 BP Source: Arm, Right Upper Patient Position: Sitting Pulse: 72 Resp: 16 SpO2: 96% Weight: 58.5 kg (129 lb) Height: 1.613 m (5' 3.5") PainSc: Five Body mass index is 22.49 kg/m. Past Medical History Patient Active Problem List Diagnosis Date Noted Pneumothorax 11/18/2019 Gastropathy 08/01/2016 Chest pain 07/23/2016 Colonic stricture (HCC) 04/04/2016 Chronic diarrhea 04/04/2016 Nausea and vomiting 04/04/2016 Diverticular disease 04/04/2016 Pacemaker battery depletion 04/08/2014 Malignant neoplasm of upper-outer quadrant of left female breast (HCC) 03/11 s/p left breast stereo biopsy 03/03/14 Patsy Simental cStage I T1N0M0 grade 2 IDC 7 mm by mammography ER 97% AR 51% Her-2 negative Ki-67 20% s/p left simple mastectomy and SNBx 05/14/14 ICC Stage I T1N0M0 grade 2 IDC (2:00) 9 mm 1 sentinel node negative ER 100% AR 50% Her-2 negative Ki-67 15% Oncology: Dr. Giselle Williamson 06/2014 - Genetics: BrCA I and II negative 03/2014 Third degree heart block (HCC) 03/13/2010 Third-degree heart block with dual-chamber permanent [employer] pacemaker impla nted 07/[address] [facility]. Family history of ischemic heart disease 03/13/2010 Atrial premature beats 03/13/[address] De La Torre who recommended increasing her metoprolol to 25 mg twice a day. DM (diabetes mellitus) ([facility]) 03/13/2010 Diagnosed in the summer of 2008. a. hospitalized in January at [place] with elevated blood sugar of approx imately 280. Angina 07/31/2007 CAD (coronary artery disease) 07/31/2007 1. Bare metal stent placed in the anterior descending coronary artery on at [facility] with jailed diagonal and a kissing balloon inflation done with 0% res idual stenosis. 2. 11/24/07 drug eluting stent placed in the anterior descending coronary artery because of high grade in stent restenosis of the previously placed bare metal st ent. 3. 12/25/07 - Exercise echo demonstrating no definite ischemia. 4. 02/19/08 follow-up catheterization demonstrating a patent stent in the anteri or descending coronary artery with no high grade lesions and a normal ejection f raction. 5. 09/21/2008, thallium study demonstrating an adequate ejection fraction of 80 percent with no evidence of myocardial ischemia. 6. 07/31/16: Reg stress thall: EF 61%. normal with no evidence of significant my ocardial ischemia 7. 03/10/19: Echo: LVEF 55%. Normal right ventricular cavity size with mild reduc tion in systolic function. Mild mitral valve regurgitation. No valvular stenosis noted. PASP 21 8. 06/14/20: Echo. EF~65%. Grade 1 diastolic dysfunction. Mild mitral regurgitatio n. PASP 21 Abnormal cardiovascular stress test SSS (sick sinus syndrome) (HCC) Cardiac pacemaker in situ Chronic low back pain Chronic back pain of undetermined etiology, apparently due to neuropathy. Hypertension Hyperlipidemia Review of Systems Constitution: Negative. Negative for fever and malaise/fatigue. HENT: Negative. Eyes: Negative. Cardiovascular: Negative. Negative for chest pain, claudication, dyspnea on exe rtion, orthopnea, paroxysmal nocturnal dyspnea and syncope. Respiratory: Negative. Endocrine: Negative. Hematologic/Lymphatic: Negative. Skin: Negative. Musculoskeletal: Positive for back pain. Gastrointestinal: Negative. Negative for bloating, abdominal pain, constipation and diarrhea. Genitourinary: Negative. Neurological: Negative. Psychiatric/Behavioral: Negative. Allergic/Immunologic: Negative. Physical Exam Constitutional: She appears well-developed. Neck: No JVD present. Cardiovascular: Normal rate, regular rhythm and normal heart sounds. Exam reveal s no gallop and no friction rub. No murmur heard. Pulmonary/Chest: Effort normal. No respiratory distress. She has no wheezes. She has no rales. Abdominal: Soft. She exhibits no distension. There is no abdominal tenderness. Musculoskeletal: Cervical back: Normal range of motion. Neurological: She is alert and oriented to person, place, and time. Skin: Skin is warm. Cardiovascular Studies EKG from prior visit: sinus with paced ventricul rhythm, on device interrogation patient was noted to be 99% paced for which ekg was not repeated. She had her last echo done early of this year which showed a normal EF with Grad e 1 diastolic dysfunction with mild MR. Last stress test was in 2019, which did not reveal any evidence of ischemia. Problems Addressed Today 1. Cardiac pacemaker in situ 2. Pre-op evaluation Assessment and Plan Ms. Gu, is a very pleasant 80 years old female patient with pmh of CAD s.p stenting to her LAD in 2007 ( had a bare metal stent, with a sebsequent KEESHA in the same year due to IST), CHB s,p dual chamber PPM, HTN, HLD, atrial dysrhythmi a who presented today at the request of her orthopedic surgeon for a pre-op eval uation and medical optimization. Currently Ms. Gu, does NOT report chest pain, SOB, or any angina equipment symptoms, she does appear to be eu-volemic on exam today, with an overall cohen activity status index of around 4METS. Overall she is an intermediate to high ri sk patient for an intermediate risk procedure, her RCRI risk is 6% ( 1 point for CAD), with that being said her risk should not prohibit her from undergoing the planned procedure. Plan: - Would not pursue additional cardiac workup as patient appears to be stable fro m a cardiac standpoint. - would continue with her metoprolol 25mg daily, and statin. - can hold aspirin 7-10 prior to surgery given her risk of bleeding, and would r esume it as soon as possible from a surgical stand point. - Will also send for a device interrogation to assess for device battery and any arrhythmia. - RTC in 1 year or if anything has changed. Patient is following Dr. Ceja, in [facility] orthopedic [address] , [address] [place] [address], phone number [phone], fax: [phone]. Current Medications (including today's revisions) aspirin EC 325 mg tablet Take 325 mg by mouth daily. cetirizine (ZYRTEC) 10 mg tablet Take 10 mg by mouth at bedtime daily. cyclobenzaprine (FLEXERIL) 10 mg tablet cyclobenzaprine 10 mg tablet TAKE 1 TABLET BY MOUTH THREE TIMES DAILY NEEDED FOR SPASMS diazePAM (VALIUM) 5 mg tablet Take 5 mg by mouth daily as needed. HALF OF A TABLET EVERYDAY NEEDED ezetimibe (ZETIA) 10 mg tablet TAKE 1/2 TABLET BY MOUTH DAILY fexofenadine (NOREEN) 180 mg tablet fexofenadine 180 mg tablet TK 1 T PO ONCE D PRN HYDROcodone/acetaminophen(+) (NORCO) 10/325 mg tablet Take 1 tablet by mouth daily as needed hydrOXYchloroQUINE (PLAQUENIL) 200 mg tablet 200 mg twice daily. TAKE 1 TABL ET TWICE A DAY letrozole (FEMARA) 2.5 mg tablet Take one tablet by mouth daily. meloxicam (MOBIC) 7.5 mg tablet Take one tablet by mouth twice daily as need ed for Pain. metoprolol XL (TOPROL XL) 50 mg extended release tablet Take one-half tablet by mouth daily. niacin SR (SLO-NIACIN) 500 mg tablet Take 500 mg by mouth twice daily. nitroglycerin (NITROSTAT) 0.[address] one tablet under tongue every 5 minutes as needed for Chest Pain. If pain not resolved after third tablet call 911 or seek emergent help. olopatadine (PATADAY) 0.2 % ophthalmic solution olopatadine 0.2 % eye drops INT 1 GTT IN OU D omeprazole DR (PRILOSEC) 20 mg capsule Take one capsule by mouth daily befor e breakfast. rosuvastatin (CRESTOR) 10 mg tablet TAKE 1 TABLET BY MOUTH DAILY zolpidem (AMBIEN) 5 mg tablet Take 5 mg by mouth at bedtime as needed for Sl eep. Cardiology Attending Staff Attestation I have personally interviewed and examined the patient, have reviewed the docume ntation, and agree with the assessment and plan with the CV Fellow. Chet Bah M.D. documented in this encounter Miscellaneous Notes * Addendum Note - Chet Bah MD - 01/12/2021 2:20 PM CDT Addended by: CHET BAH on: 01/13/2021 01:51 PM Modules accepted: Level of Service documented in this encounter Plan of Treatment Order Schedule Name Type Priority Associated Diag noses Expected: 05/10/2021, Expires: 2 DEVICE EVALUATION - PPM Device Check Routine Cardia c pacemaker in situ documented as of this encounter Goals Goal Patient Associated Recent Progress Patient-Stat Aut hor Goal Type Problems ed? GOAL General Yes Jeffery Graf, RN Note: Twin jacobs documented as of this encounter Visit Diagnoses Diagnosis Cardiac pacemaker in situ - Primary Pre-op evaluation Preoperative examination, unspecified documented in this encounter Discontinued Medications Start Date End Date Medication Sig Discontinue Reason 11/30/2016 01/12/2021 fluoxetine (PROZAC) 20 mg Take 20 mg capsule by mouth daily. 01/12/2021 L.ACID/L.CASEI/B.BIF/B.LO Take 1 Tab N/FOS (PROBIOTIC BLEND by mouth PO) daily. 11/22/2016 01/12/2021 ondansetron (ZOFRAN ODT) Dissolve 8 8 mg rapid dissolve mg by mouth tablet every 8 hours as needed. 10/08/2020 01/12/[address] Take 40 mg (PROTONIX) 40 mg tablet by mouth daily. documented as of this encounter Orders First Ordered Date Appointment Count Last Ordered Date REQUEST FOR CARDIOLOGY APPOINTMENT 1 10/2020 documented in this encounter Additional Health Concerns Assessment Noted Time A fall risk assessment has been completed for the pat ient 01/12/2021 2:44 PM CDT A Body Mass Index follow-up plan has been documented for the patient 05/18/2019 12:45 PM GROCERY SACKER PHQ-2 Depression Total Score: 0 01/12/2021 2:44 PM CDT documented as of this encounter
--- OUTSIDE RECORDS SUMMARY | 2021-02-23 23:17 | XMS REPORT | Clinical Summary ---
Author Author Admin, Emily Nieto Organization [facility] Address Unknown Phone Unavailable Allergies, Adverse Reactions, Alerts Allergy Name Reaction Description Start Date Severity Status Pr ovider FLAGYL Moderate No Longer Active Stefano Gu MD BACTRIM Moderate No Longer Active Stefano Gu MD CIPRO Moderate No Longer Active Stefano Gu MD SULFA Moderate Active Stefano zee MD FLAGYL Moderate No Longer Active Anamariarl Garcia PERISHABLE FREIGHT INSPECTOR ADHESIVE TAPE Moderate Active Anamaria Indra t PERISHABLE FREIGHT INSPECTOR CIPRO Moderate Inactive Anamaria Garcia PERISHABLE FREIGHT INSPECTOR FLAGYL Moderate Inactive Anamaria Garcia PERISHABLE FREIGHT INSPECTOR BACTRIM Moderate Inactive Anamaria Garcia PERISHABLE FREIGHT INSPECTOR Conditions or Problems Problem Name Problem Code [...] daily for suppression 06/12/09 NITROFURANTOIN MONOHYD MACRO 26358104479 No Longer Active Stefano Gu MD Active OLOPATADINE HCL 0.2 % OPHTHALMIC SOLUTION 1 drop in each eye daily OLOPATADINE HCL 06330664404 Active Anamaria Jose JOSHUAN Active ROSUVASTATIN CALCIUM 10 MG ORAL TABLET once daily ROSUVASTATIN CALCIUM 30759058460 [facility] EZETIMIBE 10 MG ORAL TABLET 1/2 tablet daily EZET IMIBE 33715767315 Active [facility] Active DIAZEPAM 5 MG ORAL TABLET once daily as needed DIAZEPAM 58986406351 Active [facility] Active FLUOXETINE HCL 20 MG ORAL CAPSULE once daily FL UOXETINE HCL 83130933037 Active [facility] Active ONDANSETRON 4 MG ORAL TABLET DISINTEGRATING three times regan y as needed ONDANSETRON 15104363839 Active [facility] Active LETROZOLE 2.5 MG ORAL TABLET once daily LETROZOLE 84581080594 Active [facility] Active HYDROXYCHLOROQUINE SULFATE 200 MG ORAL TABLET 1 tablet twice daily HYDROXYCHLOROQUINE SULFATE 89610713778 Active [facility] Active AMBIEN 5 MG ORAL TABLET as needed at bedtime ZO LPIDEM TARTRATE 92775990712 Active [facility] Active NITROGLYCERIN 0.4 MG SUBLINGUAL TABLET SUBLINGUAL plac e under tongue every 5 minutes as needed for chest pain NITROGLYCERIN 54633717507 Active [facility] Active NIACIN 500 MG ORAL TABLET 1 tablet twice daily NI ACIN 09914193282 Active [facility] Active PROMETHAZINE HCL 25 MG ORAL TABLET as needed P ROMETHAZINE HCL 99942179809 Active [facility] Active CYANOCOBALAMIN 1000 MCG/ML INJECTION SOLUTION once monthly CYANOCOBALAMIN 83748626542 Active [facility] Active PANTOPRAZOLE SODIUM 40 MG ORAL TABLET DELAYED RELEASE once daily PANTOPRAZOLE SODIUM 59401657256 Active [facility] Act[facility] ve COMPRO 25 MG RECTAL SUPPOSITORY daily PROCHLO RPERAZINE 71553749089 Active Anamaria [facility] Active 24HR ALLERGY RELIEF 180 MG ORAL TABLET as needed FEXOFENADINE HCL 99100365614 Active Anamaria Garcia PERISHABLE FREIGHT INSPECTOR Active METOPROLOL SUCCINATE ER 50 MG ORAL TABLET EXTENDED REL EASE 24 HOUR 1/2 tablet daily METOPROLOL SUCCINATE 09389989762 Active Anamaria Garcia PERISHABLE FREIGHT INSPECTOR Active ASPIRIN 325 MG ORAL TABLET once daily ASPIRIN 6783962 5429 Active Anamaria Garcia PERISHABLE FREIGHT INSPECTOR Active CYCLOBENZAPRINE HCL 10 MG ORAL TABLET 1 tablet 3 times daily 08/16 CYCLOBENZAPRINE HCL 88974675691 Active Anamaria Garcia PERISHABLE FREIGHT INSPECTOR Acti ve MACROBID 100 MG ORAL CAPSULE 1 capsule daily for suppression 06/12/09 MACROBID 100 MG ORAL CAPSULE 9566629 NITROFURANTOIN MONO HYD MACRO Inactive Diagnostic Results [...] negative Encounters Code Encounter Date Provider Facility CPT-[id number] Level 3 Est. Patient 16:45:06 CDT J Azam mcmanus MD [facility] Surgery CPT-23293 Level 4 New Patient 13:45:25 FOREST PATHOLOGIST Stefano crow MD [facility] Procedures Code Procedure Name Date Entry Date Standard Desc ription CPT-05064 Cystoscopy 16:45:06 CDT CPT-34100 Bladder Scan 16:45:06 CDT CPT-52202 Dil F ureth int 13:45:25 FOREST PATHOLOGIST CPT-42803 Bladder Scan 13:45:25 FOREST PATHOLOGIST [id number]-[id number] ([id number] 2P) Patient Reason Influenza immu nization not administered 13:45:25 FOREST PATHOLOGIST
--- OUTSIDE RECORDS SUMMARY | 2021-02-23 23:17 | XMS REPORT | Clinical Summary ---
Author Author Admin, Emily Nieto Organization [facility] Address Unknown Phone Unavailable Allergies, Adverse Reactions, Alerts Allergy Name Reaction Description Start Date Severity Status Pr ovider FLAGYL Moderate No Longer Active Stefano Gu MD BACTRIM Moderate No Longer Active Stefano Gu MD CIPRO Moderate No Longer Active Stefano Gu MD SULFA Moderate Active Stefano zee MD FLAGYL Moderate No Longer Active Anamariarl Garcia CAMPAIGN WORKER ADHESIVE TAPE Moderate Active Anamaria Indra t CAMPAIGN WORKER CIPRO Moderate Inactive Anamaria Garcia CAMPAIGN WORKER BACTRIM Moderate Inactive Anamaria Garcia CAMPAIGN WORKER FLAGYL Moderate Inactive Anamaria Garcia CAMPAIGN WORKER Conditions or Problems Problem Name Problem [...] daily for suppression 06/12/09 NITROFURANTOIN MONOHYD MACRO 58575012229 No Longer Active Stefano Gu MD Active OLOPATADINE HCL 0.2 % OPHTHALMIC SOLUTION 1 drop in each eye daily OLOPATADINE HCL 59283801268 Active Anamaria Garcia CAMPAIGN WORKER Active ROSUVASTATIN CALCIUM 10 MG ORAL TABLET once daily ROSUVASTATIN CALCIUM 34550519488 Active Anamaria Garcia CAMPAIGN WORKER Active EZETIMIBE 10 MG ORAL TABLET 1/2 tablet daily EZET IMIBE 44068700112 Active Anamaria Garcia CAMPAIGN WORKER Active DIAZEPAM 5 MG ORAL TABLET once daily as needed DIAZEPAM 20888501467 Active Anamaria Garcia CAMPAIGN WORKER Active FLUOXETINE HCL 20 MG ORAL CAPSULE once daily FL UOXETINE HCL 66895690312 Active Anamaria Garcia CAMPAIGN WORKER Active ONDANSETRON 4 MG ORAL TABLET DISINTEGRATING three times regan y as needed ONDANSETRON 71687857170 Active Anamaria Garcia CAMPAIGN WORKER Active LETROZOLE 2.5 MG ORAL TABLET once daily LETROZOLE 16700175948 [facility] HYDROXYCHLOROQUINE SULFATE 200 MG ORAL TABLET 1 tablet twice daily HYDROXYCHLOROQUINE SULFATE 51883247748 Active [facility] Active AMBIEN 5 MG ORAL TABLET as needed at bedtime ZO LPIDEM TARTRATE 19086925426 Active [facility] Active NITROGLYCERIN 0.4 MG SUBLINGUAL TABLET SUBLINGUAL plac e under tongue every 5 minutes as needed for chest pain NITROGLYCERIN 72906083631 Active [facility] Active NIACIN 500 MG ORAL TABLET 1 tablet twice daily NI ACIN 90922307570 Active [facility] Active PROMETHAZINE HCL 25 MG ORAL TABLET as needed P ROMETHAZINE HCL 83331795261 Active [facility] Active CYANOCOBALAMIN 1000 MCG/ML INJECTION SOLUTION once monthly CYANOCOBALAMIN 83652088427 Active [facility] Active PANTOPRAZOLE SODIUM 40 MG ORAL TABLET DELAYED RELEASE once daily PANTOPRAZOLE SODIUM 12610147683 Active [facility] Acti ve COMPRO 25 MG RECTAL SUPPOSITORY daily PROCHLO RPERAZINE 17636214761 Active [facility] Active 24HR ALLERGY RELIEF 180 MG ORAL TABLET as needed FEXOFENADINE HCL 37423984002 Active Anamaria Garcia [facility] Active METOPROLOL SUCCINATE ER 50 MG ORAL TABLET EXTENDED REL EASE 24 HOUR 1/2 tablet daily METOPROLOL SUCCINATE 06181233850 Active Anaamria Garcia CAMPAIGN WORKER Active ASPIRIN 325 MG ORAL TABLET once daily ASPIRIN 0746373 5429 Active Anamaria Garcia [facility] Active CYCLOBENZAPRINE HCL 10 MG ORAL TABLET 1 tablet 3 times daily 08/16 CYCLOBENZAPRINE HCL 94088840558 Active Anamaria Garcia CAMPAIGN WORKER Acti ve MACROBID 100 MG ORAL CAPSULE 1 capsule daily for suppression 06/12/09 MACROBID 100 MG ORAL CAPSULE 1110236 NITROFURANTOIN MONO HYD MACRO Inactive Diagnostic Results [...] negative Encounters Code Encounter Date Provider Facility CPT-17998 Level 3 Est. Patient 16:45:06 CDT J Azam mcmanus MD [facility] Surgery CPT-92143 Level 4 New Patient 13:45:25 HAND SHAPER Stefano crow MD [facility] Procedures Code Procedure Name Date Entry Date Standard Desc ription CPT-77680 Cystoscopy 16:45:06 CDT CPT-55854 Bladder Scan 16:45:06 CDT CPT-08448 Dil F ureth int 13:45:25 HAND SHAPER CPT-37885 Bladder Scan 13:45:25 HAND SHAPER [id number] ([id number] 2P) Patient Reason Influenza immu nization not administered 13:45:25 HAND SHAPER
--- OUTSIDE RECORDS SUMMARY | 2021-02-23 23:17 | XMS REPORT | Clinical Summary ---
Author Author Admin, Emily Nieto Organization [facility] Address Unknown Phone Unavailable Allergies, Adverse Reactions, Alerts Allergy Name Reaction Description Start Date Severity Status Pr ovider FLAGYL Moderate No Longer Active Stefano Gu MD BACTRIM Moderate No Longer Active Stefano Gu MD CIPRO Moderate No Longer Active Stefano Gu MD SULFA Moderate Active Stefano zee MD FLAGYL Moderate No Longer Active Anamariarl Garcia RUBBER OFF ADHESIVE TAPE Moderate Active Anamaria Indra t RUBBER OFF CIPRO Moderate Inactive Anamaria Garcia RUBBER OFF BACTRIM Moderate Inactive Anamaria Garcia RUBBER OFF FLAGYL Moderate Inactive Anamaria Garcia RUBBER OFF Conditions or Problems Problem Name Problem Code [...] daily for suppression 06/12/09 NITROFURANTOIN MONOHYD MACRO [id number] No Longer Active Stefano Gu MD Active OLOPATADINE HCL 0.2 % OPHTHALMIC SOLUTION 1 drop in each eye daily OLOPATADINE HCL 87374946512 Active Anamaria Garcia RUBBER OFF Active ROSUVASTATIN CALCIUM 10 MG ORAL TABLET once daily ROSUVASTATIN CALCIUM 07902684007 Active [facility] EZETIMIBE 10 MG ORAL TABLET 1/2 tablet daily EZET IMIBE 16095081109 Active [facility] DIAZEPAM 5 MG ORAL TABLET once daily as needed DIAZEPAM 26121524940 Active [facility] Active FLUOXETINE HCL 20 MG ORAL CAPSULE once daily FL UOXETINE HCL 87560529940 Active [facility] Active ONDANSETRON 4 MG ORAL TABLET DISINTEGRATING three times regan y as needed ONDANSETRON 01826480761 Active [facility] LETROZOLE 2.5 MG ORAL TABLET once daily LETROZOLE 41559789418 Active [facility] Active HYDROXYCHLOROQUINE SULFATE 200 MG ORAL TABLET 1 tablet twice daily HYDROXYCHLOROQUINE SULFATE 17694045732 Active [facility] Active AMBIEN 5 MG ORAL TABLET as needed at bedtime ZO LPIDEM TARTRATE 73854693500 Active [facility] Active NITROGLYCERIN 0.4 MG SUBLINGUAL TABLET SUBLINGUAL plac e under tongue every 5 minutes as needed for chest pain NITROGLYCERIN 93149208871 Active [facility] Active NIACIN 500 MG ORAL TABLET 1 tablet twice daily NI ACIN 76334890098 Active [facility] Active PROMETHAZINE HCL 25 MG ORAL TABLET as needed P ROMETHAZINE HCL 73993678800 Active [facility] Active CYANOCOBALAMIN 1000 MCG/ML INJECTION SOLUTION once monthly CYANOCOBALAMIN 10316589298 Active [facility] Active PANTOPRAZOLE SODIUM 40 MG ORAL TABLET DELAYED RELEASE once daily PANTOPRAZOLE SODIUM 38407308284 Active [facility] Acti ve COMPRO 25 MG RECTAL SUPPOSITORY daily PROCHLO RPERAZINE 60299595601 Active Anamaria [facility] Active 24HR ALLERGY RELIEF 180 MG ORAL TABLET as needed FEXOFENADINE HCL 86655507987 Active Anamaria Garcia RUBBER OFF Active METOPROLOL SUCCINATE ER 50 MG ORAL TABLET EXTENDED REL EASE 24 HOUR 1/2 tablet daily METOPROLOL SUCCINATE 67521898653 Active Anamaria Garcia RUBBER OFF Active ASPIRIN 325 MG ORAL TABLET once daily ASPIRIN 7200311 5429 Active Anamaria Garcia RUBBER OFF Active CYCLOBENZAPRINE HCL 10 MG ORAL TABLET 1 tablet 3 times daily 08/16 CYCLOBENZAPRINE HCL 43828919437 Active Anamaria Garcia RUBBER OFF Acti ve MACROBID 100 MG ORAL CAPSULE 1 capsule daily for suppression 06/12/09 MACROBID 100 MG ORAL CAPSULE 8314483 NITROFURANTOIN MONO HYD MACRO Inactive Diagnostic Results [...] negative Encounters Code Encounter Date Provider Facility CPT-31699 Level 3 Est. Patient 16:45:06 CDT J Azam mcmanus MD [facility] Surgery CPT-06622 Level 4 New Patient 13:45:25 SCHOOL ADMISSIONS REPRESENTATIVE Stefano crow MD [facility] Procedures Code Procedure Name Date Entry Date Standard Desc ription CPT-42040 Cystoscopy 16:45:06 CDT CPT-41915 Bladder Scan 16:45:06 CDT CPT-55239 Dil F ureth int 13:45:25 SCHOOL ADMISSIONS REPRESENTATIVE CPT-17868 Bladder Scan 13:45:25 SCHOOL ADMISSIONS REPRESENTATIVE CPT-[id number] (4274F 2P) Patient Reason Influenza immu nization not administered 13:45:25 SCHOOL ADMISSIONS REPRESENTATIVE
--- OUTSIDE RECORDS SUMMARY | 2021-02-23 23:17 | XMS REPORT | Encounter Summary ---
Author Author [facility] Organization [facility] Address Unknown Phone Unavailable Care Team Providers Care Press Assistant And Feeder Name Role Phone Amena Arrington MD 100 Zohaib Hernandes MD Unavailable Joel Caceres MD Unavailable Diego Cruz MD Unavailable Lorna Trujillo PA-C Unavailable Jose J Desai MD Unavailable Shahida Adan RN Unavailable Unavailable Diann Almonte MD PCP Reason for Visit * Reason Comments Medication Refill ezetimibe Encounter Details Care Team Description Date Type Department Nicola Quiros MD Forwarding Address Unknown Medication Refill (ezetimibe) 12/26/2020 Refill Cardiology: [facility], [address] [place] [address] Social History Date Tobacco Use [...] impairment: No documented as of this encounter Ordered Prescriptions Start Date End Date Prescription Sig Dispensed Refills 12/27/2020 ezetimibe (ZETIA) 10 mg TAKE 06/11 45 tablet 2 tabletIndications: TABLET BY Hyperlipidemia, MOUTH DAILY unspecified hyperlipidemia type, Coronary artery disease involving [place] coronary artery of [place] heart with angina pectoris (HCC) documented in this encounter Plan of Treatment Not on filedocumented as of this encounter Goals Goal Patient Associated Recent Progress Patient-Stat Aut hor Goal Type Problems ed? 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
--- OUTSIDE RECORDS SUMMARY | 2021-02-23 23:17 | XMS REPORT | Encounter Summary ---
Author Author [facility] Organization [facility] Address Unknown Phone Unavailable Care Team Providers Care Loading Machine Operator Helper Name Role Phone Amena Arrington MD 100 Zohaib Hernandes MD Unavailable Joel Caceres MD Unavailable Diego Cruz MD Unavailable Lorna Trujillo PA-C Unavailable Jose J Desai MD Unavailable Shahida Adan RN Unavailable Unavailable Diann Almonte MD PCP Encounter Details Care Team Description Date Type Department Levon Blount RN 01/10/2021 Telephone Cardiology: [facility], [address] [place] [address]. [address] [place] [address] Social History Date Tobacco Use [...] encounter Miscellaneous Notes * Telephone Encounter - Levon Blount RN - 01/10/2021 4:15 PM CDT Received call from pt. stating she was going to have "spinal fusion" in her lowe r back. Pt. plans to have this procedure done with [facility]. The ir phone is [phone] and fax is [phone]. Pt. states that the team down there is going to fax us "some papers that need to be signed." I advised pt. if they were needing cardiac risk stratification then she would most likely need to be seen by a new provider in our system since Dr. Quiros is no longer with the pr actice. I called down to the Orthopedics office and M for them to send any pap er work to our teams right fax. Once we know what the Orthopedic teams needs we will let pt. know if she needs to be seen. documented in this encounter Plan of Treatment Not on filedocumented as of this encounter Goals Goal Patient Associated Recent Progress Patient-Stat Aut hor Goal Type Problems ed? GOAL General Yes Jeffery Graf, LAURA Note: To renetta jacobs documented as of this encounter Visit Diagnoses Not on filedocumented in this encounter Additional Health Concerns Assessment Noted Time A Body Mass Index follow-up plan has been documented for the patient 05/18/2019 12:45 PM HOLISTIC NUTRITIONIST PHQ-2 Depression Total Score: 0 10/18/2020 11:31 AM CDT documented as of this encounter
--- OUTSIDE RECORDS SUMMARY | 2021-02-23 23:17 | XMS REPORT | Encounter Summary ---
Author Author [facility] Organization [facility] Address Unknown Phone Unavailable Care Team Providers Care Hims Manager Name Role Phone Amena Arrington MD 100 Zohaib Hernandes MD Unavailable Joel Caceres MD Unavailable Diego Cruz MD Unavailable Lorna TrujilloC Unavailable Jose J Desai MD Unavailable Shahida Adan RN Unavailable Unavailable Diann Almonte MD PCP Encounter Details Care Team Description Date Type Department Macie Gallego MD [address] [facility] [place] [address] [phone] 12/28/2020 [facility] Encounter Remote Device Check [phone] Social History Date Tobacco Use Types Packs/Day [...] impairment: No documented as of this encounter Medications at Time of Discharge Start Date End Date Medication Sig Dispensed Refills aspirin EC 325 mg tablet Take 325 mg 0 by mouth daily. cetirizine (ZYRTEC) 10 mg Take 10 mg by 0 tablet mouth at bedtime daily. 08/16/2020 cyclobenzaprine cyclobenzapri 0 (FLEXERIL) 10 mg tablet ne 10 mg tablet TAKE 1 TABLET BY MOUTH THREE TIMES DAILY NEEDED FOR SPASMS 11/30/2016 diazePAM (VALIUM) 5 mg Take 5 mg by 0 tablet mouth daily as needed. HALF OF A TABLET EVERYDAY NEEDED 12/27/2020 ezetimibe (ZETIA) 10 mg TAKE 1/2 45 tablet 2 tabletIndications: TABLET BY Hyperlipidemia, MOUTH DAILY unspecified hyperlipidemia type, Coronary artery disease involving [place] coronary artery of [place] heart with angina pectoris (HCC) fexofenadine (NOREEN) fexofenadine 0 180 mg tablet 180 mg tablet TK 1 T PO ONCE D PRN 11/28/2016 HYDROcodone/acetaminophen Take 1 tablet 0 (+) (NORCO) 10/325 mg by mouth tablet daily as needed 10/04/2015 hydrOXYchloroQUINE 200 mg twice 0 (PLAQUENIL) 200 mg tablet daily. 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 04/22/2020 metoprolol XL (TOPROL XL) Take one-half 45 tablet 3 50 mg extended release tablet by tabletIndications: mouth daily. Essential hypertension, Coronary artery disease involving [place] coronary artery of [place] heart with angina pectoris (HCC) niacin SR (SLO-NIACIN) Take 500 mg 0 500 mg tablet by mouth twice daily. 09/23/2020 nitroglycerin (NITROSTAT) Place one 25 tablet 1 0.4 mg tablet tablet under tongue every 5 minutes as needed for Chest Pain. If pain not resolved after third tablet call 911 or seek emergent help. 08/16/2020 olopatadine (PATADAY) 0.2 olopatadine 0 % ophthalmic solution 0.2 % eye drops INT 1 GTT IN OU D 06/22/[address] (PRILOSEC) Take one 90 capsule 3 20 mg capsuleIndications: capsule by Gastroesophageal reflux mouth daily disease, esophagitis before presence not specified breakfast. 11/14/2020 rosuvastatin (CRESTOR) 10 TAKE 1 TABLET 90 tablet 1 mg tablet BY MOUTH DAILY zolpidem (AMBIEN) 5 mg Take 5 mg by 0 tablet mouth at bedtime as needed for Sleep. 11/30/2016 01/12/2021 fluoxetine (PROZAC) 20 mg Take 20 mg by 0 capsule mouth daily. 01/12/2021 L.ACID/L.CASEI/B.BIF/B.LO Take 1 Tab by 0 N/FOS (PROBIOTIC BLEND mouth daily. PO) 11/22/2016 01/12/2021 ondansetron (ZOFRAN ODT) Dissolve 8 mg 0 8 mg rapid dissolve by mouth tablet every 8 hours as needed. 10/08/2020 01/12/[address] Take 40 mg by 0 (PROTONIX) 40 mg tablet mouth daily. documented as of this encounter Discharge Disposition Code Departure Means Destination Disposition Home Home or Self Care documented in this encounter Plan of Treatment Not on filedocumented as of this encounter Goals Goal Patient Associated Recent Progress Patient-Stat Aut hor Goal Type Problems ed? GOAL General Yes Jeffery Graf, RN Note: To get bettter documented as of this encounter Procedures Comments Procedure Name Priority Date/Time Associated Diag nosis DEVICE EVALUATION - Routine 12/28/2020 SSS (sick sinus syndrome) REMOTE PPM CHARGES 9:16 AM CDT ([facility]) Cardiac pacemaker in situ documented in this encounter Results * DEVICE EVALUATION - REMOTE PPM (12/28/2020 9:16 AM CDT) Atrial Lead Medtronic MUR[facility] Curtain Worker Atrial Lead 4076-45cm [facility] Model # Atrial Lead [id number] [facility] Serial # Atrial Lead 07/25/2006 MURJ Implant Date RV Lead Medtronic MURJ Curtain Worker RV Lead Model # 4076-52cm [facility] RV Lead Serial [id number] [facility] # RV Lead Implant 07/25/2006 MURJ Date Device Type IPG MURJ Atrial Lead NA MURJ Diaph. Stimulation Atrial Lead active fixation MURJ Fixation Atrial Lead Pin IS1 [facility] Connector Atrial Lead Bipolar MURJ Polarity RV Lead Diaph. NA [facility]URJ Stimulation RV Lead active fixation M[facility] Fixation RV Lead Pin IS1 [facility] Connector ICD Device [employer] [facility] [place] Transmitter Compatible Remote Cellular adaptor [facility] Connectivity Accssory Serial [id number] MURJ Number Generator Medtronic MURJ Curtain Worker Generator Model Advisa DR MRI [id number] [facility] # Generator [id number] [facility] Serial # Generator [id number] [facility] Implnat Date EP DEVICE Primary Drop Hammer Operator Helper Dr[facility] PATIENT NOTES Pacemaker yes MURJ Dependant On [...] Address City/State/ZIP Code P janel Number MURJ documented in this encounter Visit Diagnoses Not on filedocumented in this encounter Additional Health Concerns Assessment Noted Time A Body Mass Index follow-up plan has been documented for the patient 05/18/2019 12:45 PM MANAGER SQL PHQ-2 Depression Total Score: 0 10/18/2020 11:31 AM CDT documented as of this encounter
--- NOTE | 2021-02-23 23:30 | ED Head Injury ---
General Stated Complaint: HEAD LAC;FALL Source: patient, family Exam Limitations: no limitations History of Present Illness Date Seen by Provider: Feb 23, 2021 Time Seen by Provider: 23:25 Initial Comments 80-year-old female presents after falling at home going to the restroom hitting her head on the floor and cutting her scalp. Denies any loss of consciousness, feeling dazed or confused. Patient midst to frequent falls of the sort. Ambulatory on arrival, present with her daughter no other concerns. Allergies and Home Medications Allergies Coded Allergies: adhesive tape (Verified Allergy, Unknown, 03/17/20) ciprofloxacin (Verified Allergy, Unknown, 03/17/20) egg (Verified Allergy, Unknown, 03/17/20) influenza A (H5N1) virus vaccine mo (Verified Allergy, Unknown, 03/17/20) iodine (Verified Allergy, Unknown, 03/17/20) metronidazole (Verified Allergy, Unknown, 03/17/20) sulfamethoxazole (Verified Allergy, Unknown, 03/17/20) trimethoprim (Verified Allergy, Unknown, 03/17/20) Patient Home Medication List Home Medication List Reviewed: Yes Aspirin (Aspirin) 325 Mg Tablet, 325 MG PO DAILY, (Reported) Entered as Reported by: USMAN RODRIGUEZ on 04/21/19 162 Cetirizine HCl (Cetirizine HCl) 10 Mg Tablet, 10 MG PO DAILY, (Reported) Entered as Reported by: USMAN RODRIGUEZ on 04/21/191622 Diazepam (Diazepam) 5 Mg Tablet, 5 MG PO DAILY PRN for ANXIETY, (Reported) Entered as Reported by: USMAN RODRIGUEZ on 04/21/191622 Ezetimibe (Ezetimibe) 10 Mg Tablet, 5 MG PO DAILY, (Reported) Entered as Reported by: USMAN RODRIGUEZ on 04/21/19 162 Fluoxetine HCl (Prozac) 20 Mg Capsule, 20 MG PO DAILY, (Reported) Entered as Reported by: USMAN RODRIGUEZ on 04/21/19 162 Hydrocodone Bit/Acetaminophen (HYDROcodone/APAP 10/325 TABLET) 1 Each Tablet, 1 TAB PO Q6H PRN for PAIN-MODERATE Prescribed by: MORRIS MACIEL on 04/27/19 1110 L.acidoph & Paracasei,B.lactis (Probiotic) 1 Each Capsule, 1 EACH PO DAILY, (Reported) Entered as Reported by: USMAN RODRIGUEZ on 03/17/20 115 Letrozole (Letrozole) 2.5 Mg Tablet, 2.5 MG PO DAILY, (Reported) Entered as Reported by: USMAN RODRIGUEZ on 04/21/19 162 Meloxicam (Meloxicam) 7.5 Mg Tablet, 7.5 MG PO BID PRN for SPASMS, (Reported) Entered as Reported by: USMAN RODRIGUEZ on 03/17/20 115 Metoprolol Succinate (Metoprolol Succinate) 50 Mg Tab.er.24h, 50 MG PO DAILY, (Reported) Entered as Reported by: USMAN RODRIGUEZ on 03/17/20 115 Niacinamide (Niacin) 500 Mg Tablet, 500 MG PO DAILY, (Reported) Entered as Reported by: USMAN RODRIGUEZ on 04/21/19 162 Ondansetron (Ondansetron Odt) 4 Mg Tab.rapdis, 4 MG PO PRN PRN for NAUSEA/VOMITING, (Reported) Entered as Reported by: USMAN RODRIGUEZ on 03/17/20 115 Pantoprazole Sodium (Protonix) 40 Mg Tablet.dr, 40 MG PO DAILY Prescribed by: MILLIE MIRANDA on 04/08/20 1320 Polyethylene Glycol 3350 (Miralax) 17 Gm Powd.pack, 17 GM PO DAILY, (Reported) Entered as Reported by: USMAN RODRIGUEZ on 04/21/19 162 Rosuvastatin Calcium (Rosuvastatin Calcium) 10 Mg Tablet, 10 MG PO DAILY, (Reported) Entered as Reported by: USMAN RODRIGUEZ on 04/21/19 162 Sucralfate (Sucralfate) 1 Gm Tablet, 1 GM PO ACHS, (Reported) Entered as Reported by: USMAN RODRIGEUZ on 03/17/20 115 Zolpidem Tartrate (Zolpidem Tartrate) 5 Mg Tablet, 5 MG PO HS, (Reported) Entered as Reported by: USMAN RODRIGUEZ on 03/17/20 115 Review of Systems Review of Systems Constitutional: No fever, No malaise, No weakness Eyes: No Symptoms Reported; Denies Blurred Vision, Denies Pain, Denies Photophobia Ears, Nose, Mouth, Throat: no symptoms reported Respiratory: no symptoms reported Cardiovascular: No chest pain, No palpitations, No syncope Gastrointestinal: No abdominal pain, No nausea, No vomiting Musculoskeletal: No back pain, No joint pain Skin: see HPI, other (scalp lac) Psychiatric/Neurological: Denies Cognitive Dysfunction, Denies Headache, Denies Numbness, Denies Unable to Move Lower Ext, Denies Unable to Move Upper Ext, Denies Weakness Past Scotkfi-Jajein-Cfmlsm Hx Patient Social History Tobacco Use?: No Seasonal Allergies Seasonal Allergies: No Past Medical History Surgeries: Yes (STIMULATOR/REMOVAL BACK, LEFT MASECTOMY) Appendectomy, Coronary Stent, Gallbladder, 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, Pacemaker, Tonsillectomy Respiratory: No Currently Using CPAP: No Currently Using BIPAP: No Cardiac: Yes (CARDIAC STENTS-2007) Coronary Artery Disease, Heart Attack Neurological: Yes 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 Sexually Transmitted Disease: No HIV/AIDS: No Genitourinary: No Gastrointestinal: Yes Gastroesophageal Reflux, Chronic Constipation Musculoskeletal: Yes Arthritis, Chronic Back Pain Endocrine: No HEENT: Yes (GLASSES) Loss of Vision: Denies Hearing Impairment: Denies Cancer: Yes Breast Did You Recieve Any Treatments: Yes What Type of Treatment Did You: Surgical Intervention Psychosocial: No Anxiety Integumentary: No Blood Disorders: No Adverse Reaction/Blood Tranf: No (N/A) Physical Exam Vital Signs Vital Signs - First Documented 02/23/21 23:17 Temp 36.2 Pulse 74 Resp 17 B/P (MAP) 144/63 (90) O2 Delivery Room Air Capillary Refill : Height, Weight, BMI Height: '" Weight: lbs. oz. kg; 22.18 BMI Method: General Appearance: WD/WN, no apparent distress HEENT: PERRL/EOMI, normal ENT inspection, other (3cm linear scalp lac- vertex of scalp) Neck: non-tender, full range of motion, supple Back: normal inspection, no CVA tenderness, no vertebral tenderness Extremities: normal range of motion, non-tender, normal inspection, no pedal edema Psychiatric: alert, oriented x 3 Crainal Nerves: normal hearing, normal speech, PERRL Coordination/Gait: normal finger to nose Motor/Sensory: no motor deficit, no sensory deficit Skin: normal color, warm/dry, other (3 cm linear scalp lac- vertex w + hemostasis) Renick Coma Score Best Eye Response: (4) Open Spontaneously Best Verbal Response: (5) Oriented Best Motor Response: (6) Obeys Commands Procedures/Interventions Wound Location: Scalp Wound Length (cm): 3 Wound's Depth, Shape: linear Wound Explored: clean Irrigated w/ Saline (ccs): 20 Staple Repair: Stapler 35W (3 gagan) Sterile Dressing Applied?: No Progress/Results/Core Measures Results/Orders Vital Signs/I&O 02/23/21 23:17 Temp 36.2 Pulse 74 Resp 17 B/P (MAP) 144/63 (90) O2 Delivery Room Air Departure Impression Primary Impression: Scalp laceration Qualified Codes: S01.01XA - Laceration without foreign body of scalp, initial encounter Additional Impression: Closed head injury Qualified Codes: S09.90XA - Unspecified injury of head, initial encounter Disposition: 01 HOME, SELF-CARE Condition: Stable Departure-Patient Inst. Decision time for Depature: 23:38 Referrals: NILA CASAS MD (PCP/Family) Primary Care Physician Patient Instructions: Laceration Repair With Gagan (DC), Minor Head Injury Add. Discharge Instructions: see Dr Casas in 1 week for removal of your gagan. Follow up to the nearest ER for any change of mental status, worsening headache or confusion CHINO OCHOA DO Feb 23, 2021 23:30
== END 2021-02-23 23:45 | disposition home or self-care (01) ==
LOC: EDUNIT# 23:10 → ER FS 23:12
DX: S09.90XA Unspecified injury of head, initial encounter (principal); S01.01XA Laceration without foreign body of scalp, initial encounter; I25.2 Old myocardial infarction; I25.10 Atherosclerotic heart disease of native coronary artery without angina pectoris; F41.9 Anxiety disorder, unspecified; K21.9 Gastro-esophageal reflux disease without esophagitis; G89.29 Other chronic pain; M54.9 Dorsalgia, unspecified; Z79.82 Long term (current) use of aspirin; Z79.899 Other long term (current) drug therapy; Z79.891 Long term (current) use of opiate analgesic; W22.8XXA Striking against or struck by other objects, initial encounter; Y92.009 Unspecified place in unspecified non-institutional (private) residence as the place of occurrence of the external cause
CPT/HCPCS: 99281

== ENCOUNTER → 2021-06-19 | Outpatient (CLI) | payer MEDICARE ==
[~2021-06-19] MED LIST changes: +CYCL10TA25 PO; -CYCL10TA9 PO
== END ==
LOC: LABNPT 15:13
PROVIDERS: ATTEND Family Medicine
DX: U07.1 COVID-19 (principal)
CPT/HCPCS: 87635

== ENCOUNTER 2021-06-28 08:23 | Emergency (ER) | payer MEDICARE ==
[~2021-06-28] VITALS: Ht 160 cm; Wt 56.7 kg
--- OUTSIDE RECORDS SUMMARY | 2021-06-28 08:33 | XMS REPORT | Encounter Summary ---
Author Author [facility] Organization [facility] Address Unknown Phone Unavailable Care Team Providers Care Magnet Valve Assembler Name Role Phone Amena Arrington MD [phone] Zohaib Hernandes MD Unavailable Joel Caceres MD Unavailable Diego Cruz MD Unavailable Lorna Trujillo PA-C Unavailable Jose J Desai MD Unavailable Shahida Adan RN Unavailable Unavailable Diann Almonte MD PCP Reason for Referral * Radiology Services (Routine) - New Request Diagnoses / Procedures [facility]erred [facility] Malignant neoplasm of upper-outer quadrant of left breast in female, estrogen receptor positive (HCC) Osteopenia, unspecified location Aromatase inhibitor use Procedures BONE DENSITY SPINE/HIP Chiquis Marie MD [address] [place] [address] Radiology Referral ID Status Reason Start Date Expiration Visits Vi sits Date Requested Authorized [id number] New Request 06/20/2021 06/20/2022 1 1 NURSE Reason for Visit * Reason Onset Date Comments Imaging 06/20/2021 Follow up with BMD being completed outside of [facility] Encounter Details Care Team Description Date Type Department [facility], Chiquis Mandujano MD [address] [facility] [place] [address] Imaging (Follow up with BMD being comple kelly outside of [facility]) 06/20/2021 Telephone Oncology: [facility] [place] [address] [facility] [place] [address] Social History Date Tobacco Use Types Packs/Day Years Used Never Smoker Smokeless Tobacco: Never Used Comments Alcohol Use Standard Drinks/Week No 0 (1 standard drink = 0.6 o z pure alcohol) Sex Assigned at Date Recorded Female 11/16/2019 4:04 PM CDT documented as of this encounter Functional Status Date of Assessment Functional Status Response 04/24/2021 Does the patient have a hearing impairment: Yes 04/24/2021 Does the patient have a visual impairment: Yes 04/24/2021 Does the patient have impaired ambulation: No 04/24/2021 Does the patient have an activity of daily living No (ADL) impairment: 04/24/2021 Does the patient have an instrumental activity of No daily living (IADL) impairment: Date of Assessment Cognitive Status Response 04/24/2021 Does the patient have a cognitive impairment: No documented as of this encounter Miscellaneous Notes * Telephone Encounter - Nel Friedman RN - 06/20/2021 11:08 AM CLIN NURSE Patient calls back and states she would prefer to have BMD completed at [facility] in stead. Orders placed. Message sent to scheduling. NURSE * Telephone Encounter - Nel Friedman RN - 06/20/2021 10:22 AM CLIN NURSE This RN spoke to Emily to check on status of BMD being completed with Dr. Chiquis ding outside of [facility]. Emily states her family is currently getting over recent ly having COVID-19 so she has not yet set up a visit for the BMD. She plans to c all today to get this set up and will request records are sent to [facility] office. Emily denies any questions or concerns at this time. NURSE documented in this encounter Plan of Treatment Order Schedule Name Type Priority Associated Diag noses Expected: 06/20/2021 (Approximate), Expi res: 06/21/2022 BONE DENSITY SPINE/HIP Imaging Routine Maligna nt neoplasm of upper-outer quadrant of left breast in female, estrogen receptor positive (HCC) Osteopenia, unspecified location Aromatase inhibitor use documented as of this encounter Goals Goal Patient Associated Recent Progress Patient-Stat Aut hor Goal Type Problems ed? GOAL General Yes Jeffery Graf RN Note: To get bettter documented as of this encounter Visit Diagnoses Diagnosis Malignant neoplasm of upper-outer quadr ant of left breast in female, estrogen receptor positive (HCC) - Primary Osteopenia, unspecified location Aromatase inhibitor use Use of aromatase inhibitors * Addendum Note - Nel Friedman RN - 06/20/2021 11:09 AM CLIN NURSE Addended by: NEL FRIEDMAN on: 06/20/2021 11:09 AM Modules accepted: Orders NURSE documented in this encounter Additional Health Concerns Noted Time Assessment 05/18/2019 12:45 PM CLIN NURSE A Body Mass Index follow-up plan has be en documented for the patient 04/24/2021 12:57 PM CLIN NURSE PHQ-2 Depression Total Score: 1 documented as of this encounter Care Teams Start Date End Date Magnet Valve Assembler Relationship Specialty 07/31/07 Amena Arrington MD PCP - [address] [place] [address] [address] 01/24/15 Diann Almonte MD PCP - [address] [address] 04/10/10 Zohaib Hernandes MD [address] [place] [phone] 04/10/10 Joel Caceres MD [address] [facility] [place], [place] [phone] 04/10/10 Diego Cruz MD [address] [facility] [place], [place] [phone] 03/11/14 Lorna Trujillo, PACharlieC Surgery [address] [place] [address] 03/15/14 Jose J Desai MD Hematology & [address] [place], [place] [phone] 03/18/14 Shahida Adan RN documented as of this encounter
--- OUTSIDE RECORDS SUMMARY | 2021-06-28 08:33 | XMS REPORT | Clinical Summary ---
Author Author [facility] Organization [facility] Address Unknown Phone Unavailable Care Team Providers Care Napping Machine Operator Name Role Phone Amena Arrington MD [phone] Zohaib Hernandes MD Unavailable Joel Caceres MD Unavailable Diego Cruz MD Unavailable Lorna Trujillo PA-C Unavailable Jose J Desai MD Unavailable Shahida Adan RN Unavailable Unavailable Diann Almonte MD PCP Source Comments Some departments are not documenting in the electronic medical record. If you d o not see the information that you expected, contact Release of Information in [facility] Information Management department at [phone] for further assistan ce in locating additional records.[facility] Allergies Comments Active Allergy Reactions Severity Noted Date pulls skin off Adhesive Tape REDNESS Low 02/18/2008 Alendronate NAUSEA AND Low 07/24/2011 VOMITING, UNKNOWN Ciprofloxacin RASH, UNKNOWN Medium 10/31/2015 Egg ITCHING Low 04/09/2014 Metronidazole HIVES Low 03/14/2010 Allergy to eggs Influenza Virus Vaccines ITCHING Low 04/09 IV IODINE Iodine HIVES Medium 02/18/2008 Runny nose Seasonal Allergies SEE COMMENTS Low 11/22/2020 Sulfa (Sulfonamide UNKNOWN Low 02/04/2014 Antibiotics) Medications [...] (NORCO) 10/325 mg by mouth 7 tablet three times daily as needed Active omeprazole DR (PRILOSEC) Take one 90 capsule 3 0 20 mg capsuleIndications: capsule by 0 Gastroesophageal reflux mouth daily disease, esophagitis before presence not specified breakfast. Active meloxicam (MOBIC) 7.5 mg Take one 90 tablet 0 0 tablet tablet by 0 mouth twice daily as needed for Pain. Active nitroglycerin (NITROSTAT) Place one 25 tablet [...] T PO ONCE D PRN Active hydrOXYchloroQUINE Take 200 mg 0 (PLAQUENIL) 200 mg tablet by mouth 6 twice daily. Active olopatadine (PATADAY) 0.2 olopatadine 0 03/ % ophthalmic solution 0.2 % eye 1 drops INT 1 GTT IN OU D Active letrozole (FEMARA) 2.5 mg Take one 90 tablet 3 tabletIndications: tablet by 1 Malignant neoplasm of mouth daily. upper-outer quadrant of left breast in female, estrogen receptor positive (HCC) Active CALCIUM PO Take 2 0 tablets by mouth twice daily. Active sucralfate (CARAFATE) 1 Take 1 g by 0 gram tablet mouth four 1 times daily. Active ezetimibe (ZETIA) 10 mg Take one-half 45 tablet 3 tabletIndications: tablet by 1 Hyperlipidemia, mouth daily. unspecified hyperlipidemia type, Coronary artery disease involving [place] coronary artery of [place] heart with angina pectoris (HCC) Active metoprolol XL (TOPROL XL) Take one-half 45 tablet 3 50 mg extended release tablet by 1 tabletIndications: mouth daily. Coronary artery disease involving [place] coronary artery of [place] heart with angina pectoris (HCC), Essential hypertension Active rosuvastatin (CRESTOR) 10 Take one 90 tablet 3 mg tablet tablet by 1 mouth daily. 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 Giselle Williamson 06/2014 - Genetics: BrCA I and II negative 03/29 14 Third degree heart block 03/13/2010 Overview: Formatting of this note might be differ ent from the original. Third-degree heart block with dual-gaby aminah permanent Medtronic pacemaker implanted 07/17 at [facility]. Family history of ischemic heart disease 03/13/2010 Atrial premature beats 03/13/2010 Overview: Formatting of this note might be differ ent from the original. Seen by Dr. De La Torre who recommended in creasing her metoprolol to 25 mg twice a day. DM (diabetes mellitus) 03/13/2010 Overview: Formatting of this note might be differ ent from the original. Diagnosed in the summer. a. hospitalized in January at [facility] with elevated blood sugar of approximately 280. Angina 07/31/2007 CAD (coronary artery disease) 07/31/2007 Overview: Formatting of this note might be differ ent from the original. 1. Bare metal stent placed in the anter ior descending coronary artery on 08/01/07 at [facility] with jailed diagonal an d a kissing [...] Encounters Care Team Description Date Type Specialty Chiquis aMrie MD Imaging (Follow up with BMD being comple kelly outside of [facility]) 06/20/2021 Telephone Oncology Quita Caban, head athletic trainer Refill 05/22/2021 Refill Cardiology Nicola Quiros MD Medication Refill (rosuvastatin) 05/20/2021 Refill Cardiology Anil Borges MD Cardiac Eval (Telephone Call Only to dis cuss BP ) 05/17/2021 Scheduled Cardiology Telephone Marina Lea RN Lab Results (historical lab results reci eved from PCP) 05/11/2021 Documentation Cardiology Sienna Kaur, LAURA Follow Up 05/02/2021 Telephone Cardiology Laxmi Mckeon RN High Blood Pressure 05/02/2021 Telephone Cardiology Faith Frank Order Needed 04/25/2021 Telephone Cardiology Chiquis Marie MD Malignant neoplasm of upper-outer quadra nt of left breast in female, estrogen receptor positive (HCC) (Primary Dx); Encounter for screening mammogram for malignant neoplasm of breast 04/24/2021 Office Visit Oncology Anil Borges MD 04/24/2021 Hospital Cardiology Encounter 04/24/2021 Travel from Last 3 Months Surgical History Surgery Date Site/Laterality Comments HX CORONARY STENT jul 2007 barer metal stent i n LAD PLACEMENT RHYTHM DEVICE PLACEMENT jul 25 permanent pace maker 2006 LYMPH NODE BIOPSY HX APPENDECTOMY HX HEART CATHETERIZATION HX CHOLECYSTECTOMY HX HYSTERECTOMY 1972 BREAST LUMPECTOMY left/2003. right/1964. HX MASTECTOMY 2014 left UPPER GASTROINTESTINAL 2016 N/A ESOPHAG OGASTRODUODENOSCOPY performed by MAGDALENA Moreno MD at [facility] END[facility]/GI COLONOSCOPY 04/30/2016 N/A COLONOSCOPY per formed by Marilyn Moreno MD at [facility] ENDO/GI Medical History Medical History Date Comments [...] Signs Reading Time Taken Comments Vital Sign 122/68 04/24/2021 12:52 PM JUNIOR NETWORK ADMINISTRATOR Blood Pressure 73 04/24/2021 12:52 PM JUNIOR NETWORK ADMINISTRATOR Pulse 36.2 C (97.1 F) 04/24/2021 12:52 PM JUNIOR NETWORK ADMINISTRATOR Temperature 16 01/12/2021 2:44 PM CDT Respiratory Rate 100% 04/24/2021 12:52 PM JUNIOR NETWORK ADMINISTRATOR Oxygen Saturation - - Inhaled Oxygen Concentration 60.4 kg (133 lb 3.2 oz) 04/24/2021 12:52 PM JUNIOR NETWORK ADMINISTRATOR Weight 160 cm (5' 3") 04/24/2021 12:52 PM JUNIOR NETWORK ADMINISTRATOR Height 23.6 04/24/2021 12:52 PM JUNIOR NETWORK ADMINISTRATOR Body Mass Index Plan of Treatment Health Maintenance Due Date Last Done Comments HBA1C 1942 MEDICARE ANNUAL WELLNESS 1942 VISIT MICROALBUMIN 1942 PNEUMONIA (PPSV23) 1948 VACCINE (1 of 2 - PPSV23) DILATED EYE EXAM 1960 DTAP/TDAP VACCINES (1 - 1960 Tdap) FOOT EXAM 1960 HEPATITIS C SCREENING 1960 PHYSICAL (COMPREHENSIVE) 1960 EXAM SHINGLES RECOMBINANT 1992 VACCINE (1 of 2) OSTEOPOROSIS 2007 SCREENING/MONITORING INFLUENZA VACCINE 01/08/2021 Goals Goal Patient Associated Recent Progress Patient-Stat Aut hor Goal Type Problems ed? GOAL General Yes Jeffery Graf, RN Note: To get bettter Implants Device Identifier Shelf Expiration Date Model / Serial / L ot Implanted Type Area Manufactur er Pace Maker Pacemaker Nerve Stimulator Procedures Comments Procedure Name Priority Date/Time Associated Diag nosis LIPID PROFILE Routine 04/26/2021 COMPREHENSIVE METABOLIC Routine 04/26/2021 PANEL DEVICE EVALUATION - PPM Routine 04/24/2021 Cardia c pacemaker in situ 11:20 AM JUNIOR NETWORK ADMINISTRATOR from Last 3 Months Results * LIPID PROFILE (04/26/2021) Cholesterol 165 OTHER OUTSIDE LAB Triglycerides 61 OTHER OUTSIDE LAB HDL 89 OTHER OUTSIDE LAB LDL 64 OTHER OUTSIDE LAB VLDL OTHER OUTSIDE LAB Non HDL OTHER OUTSIDE Cholesterol LAB Cholesterol/HDL 1.9 OTHER OUTSIDE Ratio LAB Specimen Blood - Blood (substance) Narrative Performing Organization Address City/State/ZIP Code P janel Number OTHER OUTSIDE LAB * (ABNORMAL) COMPREHENSIVE METABOLIC PANEL (04/26/2021) Sodium 140 OTHER OUTSIDE LAB Potassium 3.7 OTHER OUTSIDE LAB Chloride 102 OTHER OUTSIDE LAB CO2 32 OTHER OUTSIDE LAB Blood Urea 18 OTHER OUTSIDE Nitrogen LAB Creatinine 0.9 OTHER OUTSIDE LAB Glucose 102 OTHER OUTSIDE LAB Calcium 9.7 OTHER OUTSIDE LAB Total Protein 5.9 (L) 6.0 - 8.0 OTHER OUTSIDE LAB Total Bilirubin 0.4 OTHER OUTSIDE LAB Albumin 3.9 OTHER OUTSIDE LAB Alk Phosphatase 84 OTHER OUTSIDE LAB AST (SGOT) 30 OTHER OUTSIDE LAB ALT (SGPT) 19 OTHER OUTSIDE LAB eGFR Non 63 OTHER OUTSIDE LAB U[place]ayan eGFR OTHER OUTSIDE [place] LAB Anion Gap 10 OTHER OUTSIDE LAB Specimen Blood - Blood (substance) Performing Organization Address City/State/ZIP Code P janel Number OTHER OUTSIDE LAB * DEVICE EVALUATION - PPM (04/24/2021 11:20 AM JUNIOR NETWORK ADMINISTRATOR) Atrial Lead Medtronic MURJ Clam Bed Worker Atrial Lead 4076-45cm MURJ Model # Atrial Lead [id number] MURJ Serial # Atrial Lead 07/25/2006 MURJ Implant Date RV Lead Medtronic MURJ Clam Bed Worker RV Lead Model # 4076-52cm MURJ RV Lead Serial [id number] MURJ # RV Lead Implant 07/25/2006 MURJ Date Device Type IPG MURJ Atrial Lead NA MURJ Diaph. Stimulation Atrial Lead active fixation MURJ Fixation Atrial Lead Pin IS1 MURJ Connector Atrial Lead Bipolar MURJ Polarity RV Lead Diaph. NA MURJ Stimulation RV Lead active fixation MURJ Fixation RV Lead Pin IS1 MURJ Connector ICD Device Carelink Express MURJ Polebridge Transmitter Compatible Remote Cellular adaptor MURJ Connectivity Accssory Serial [id number] MURJ Number Generator Medtronic MURJ Clam Bed Worker Generator [id number] MURJ Serial # Generator Model Advisa DR LARSON [id number] MURJ # Generator [id number] MURJ Implnat Date EP DEVICE Primary Data Center Architect Dr. Chula CHAPARRO PATIENT NOTES Pacemaker yes MURJ Dependant On no MURJ Anticoagulation EP SYSTEM MRI yes MURJ CONDITIONAL Modality Anatomical Region Laterality MAC CV Heart Rhythm Specimen Narrative MURJ - 04/24/2021 4:31 PM JUNIOR NETWORK ADMINISTRATOR Title: Normal In-Office: No Events * Normal Device Function * Alerts or events: None * Battery: SEE PDF, 1.5 years (1 - 2.5 years) * Sensing, impedance and thresholds reviewed and tested * Presenting Rhythm: , some AP- JEWELRY JOBBER 67 bpm * Underlying Rhythm: JEWELRY JOBBER @ 40 bpm * Heart Rate Histograms reviewed - good distribution * Pacing and Detection Parameters were evaluated Additional Notes: last OV was with Dr. Quiros 09/23/20. has seen Rneea Faustin NP before, flag to purple team, no order seen for next appt Performing Organization Address City/State/ZIP Code P janel Number MURJ from Last 3 Months Insurance Type Payer Benefit Subscriber ID Effective Phone Address Plan / Dates Group Medicare MEDICARE MEDICARE [id number] 2007-P [phone] [address] [place] [address] Medicare BCBS JOCELYN BCBS [id number] 2020-P [phone] [address] [place] [address] [address] [facility] [place], [place] [address] Advance Directives Patient Clerical Supervisor Explanation Type Date Recorded Advance 05/14/2014 8:59 [...] w/Patient or Family? necessary based on Dx Care Teams Start Date End Date Napping Machine Operator Relationship Specialty 07/31/07 Amena Arrington MD PCP - [address] [place] [address] [address] [address] 01/24/15 Diann Almonte MD PCP - [address] [address] 04/10/10 Zohaib Hernandes MD [address] [address] 04/10/10 Joel Cacrees MD [address] [address] 04/10/10 Diego Cruz MD [address] [address] 03/11/14 Lorna Trujillo, PA-C Surgery [address] [place] [address] 03/15/14 Jose J Desai MD Hematology & [address] [place] [address] 03/18/14 Shahida Adan RN
--- OUTSIDE RECORDS SUMMARY | 2021-06-28 08:33 | XMS REPORT | Encounter Summary ---
Author Author [facility] Organization [facility] Address Unknown Phone Unavailable Care Team Providers Care Guest Service Aide Name Role Phone Amena Arrington MD [phone] Zohaib Hernandes MD Unavailable Joel Caceres MD Unavailable Diego Cruz MD Unavailable Lorna Trujillo PA-C Unavailable Jose J Desai MD Unavailable Shahida Adan RN Unavailable Unavailable Diann Almonte MD PCP Reason for Visit * Reason Onset Date Comments Medication Refill 05/22/2021 Encounter Details Care Team Description Date Type Department Quita Caban RN Medication Refill 05/22/2021 Refill Cardiology: [facility] [address] [place] [address] [address], [address] [place] [address] Social History Date Tobacco Use Types Packs/Day Years Used Never Smoker Smokeless Tobacco: Never Used Comments Alcohol Use Standard Drinks/Week No 0 (1 standard drink = 0.6 o z pure alcohol) Sex Assigned at Date Recorded Female 11/16/2019 4:04 PM CDT Date Recorded COVID-19 Exposure Response 04/24/2021 10:23 AM ELECTRICAL ENGINEERING MANAGER In the last month, have you been [...] Date End Date Prescription Sig Dispensed Refills 05/22/2021 rosuvastatin (CRESTOR) 10 Take one 90 tablet 3 mg tablet tablet by mouth daily. 05/22/2021 metoprolol XL (TOPROL XL) Take one-half 45 tablet 3 50 mg extended release tablet by tabletIndications: mouth daily. Coronary artery disease involving [place] coronary artery of [place] heart with angina pectoris (HCC), Essential hypertension 05/22/2021 ezetimibe (ZETIA) 10 mg Take one-half 45 tablet 3 tabletIndications: tablet by Hyperlipidemia, mouth daily. unspecified hyperlipidemia type, Coronary artery disease involving [place] coronary artery of [place] heart with angina pectoris (HCC) documented in this encounter Plan of Treatment Not on filedocumented as of this encounter Goals Goal Patient Associated Recent Progress Patient-Stat Aut hor Goal Type Problems ed? GOAL General Yes Jeffery Graf, RN Note: Twin jacobs documented as of this encounter Visit Diagnoses Diagnosis Hyperlipidemia, unspecified hyperlipide jah type Coronary artery disease involving nativ e coronary artery of [place] heart with angina pectoris (HCC) Essential hypertension Unspecified essential hypertension documented in this encounter Discontinued Medications Start Date End Date Medication Sig Discontinue Reason 04/22/2020 05/22/2021 metoprolol XL (TOPROL XL) Take Reorder 50 mg extended release one-half tabletIndications: tablet by Essential hypertension, mouth daily. Coronary artery disease involving [place] coronary artery of [place] heart with angina pectoris (HCC) 12/27/2020 05/22/2021 ezetimibe (ZETIA) 10 mg TAKE 1/2 Reorder tabletIndications: TABLET BY Hyperlipidemia, MOUTH DAILY unspecified hyperlipidemia type, Coronary artery disease involving [place] coronary artery of [place] heart with angina pectoris (HCC) 05/21/2021 05/22/2021 rosuvastatin (CRESTOR) 10 TAKE 1 Reorder mg tablet TABLET BY MOUTH DAILY documented as of this encounter Additional Health Concerns Noted Time Assessment 05/18/2019 12:45 PM ELECTRICAL ENGINEERING MANAGER A Body Mass Index follow-up plan has be en documented for the patient 04/24/2021 12:57 PM ELECTRICAL ENGINEERING MANAGER PHQ-2 Depression Total Score: 1 documented as of this encounter Care Teams Start Date End Date Guest Service Aide Relationship Specialty 07/31/07 Amena Arrington MD PCP - [address] [place] [address] [address] 01/24/15 Diann Almonte MD PCP - [address] [address] 04/10/10 Zohaib Hernandes MD [address] [address] 04/10/10 Joel Caceres MD [address] [place] [address] 04/10/10 Diego Cruz MD [address] [place] [address] 03/11/14 Lorna Trujillo, KYLE-C Surgery [address] [place] [address] 03/15/14 Jose J Desai MD Hematology & [address] [place], [place] [phone] 03/18/14 Shahida Adan RN documented as of this encounter
--- OUTSIDE RECORDS SUMMARY | 2021-06-28 08:34 | XMS REPORT | Encounter Summary ---
Author Author [facility] Organization [facility] Address Unknown Phone Unavailable Care Team Providers Care Chief Design Engineer Name Role Phone Amena Arrington MD [phone] Zohaib Hernandes MD Unavailable Joel Caceres MD Unavailable Diego Cruz MD Unavailable Lorna Trujillo PA-C Unavailable Jose J Desai MD Unavailable Shahida Adan RN Unavailable Unavailable Diann Almonte MD PCP Reason for Visit * Reason Onset Date Comments Follow Up 05/02/2021 Encounter Details Care Team Description Date Type Department Sienna Kaur, RN Follow Up 05/02/2021 Telephone Cardiology: [facility] [address] [address] [facility] [place] [address] Social History Date Tobacco Use Types Packs/Day Years Used Never Smoker Smokeless Tobacco: Never Used Comments Alcohol Use Standard Drinks/Week No 0 (1 standard drink = 0.6 o z pure alcohol) Sex Assigned at Date Recorded Female 11/16/2019 4:04 PM CDT Date Recorded COVID-19 Exposure Response 04/24/2021 10:23 AM DITTO MACHINE OPERATOR In the last month, have you been [...] encounter Miscellaneous Notes * Telephone Encounter - Sienna Kaur RN - 05/02/2021 10:40 AM DITTO MACHINE OPERATOR Received VM from pt. She had been trying to send remote PPM check and someone fr cliff HOBBS called her. Pt had called in earlier today re: high BP. No one instructe d her to send remote, she just wanted to make sure it was ok. She had not yet r echecked her BP. I asked her to do this. She was not sure if she took her Meto prolol this morning or if she takes it in the evening. She said her prior BP wa s done 30 min after her morning medications. I told her I would have nurse f/u with her. O MACHINE OPERATOR documented in this encounter Plan of Treatment Not on filedocumented as of this encounter Goals Goal Patient Associated Recent Progress Patient-Stat Aut hor Goal Type Problems ed? GOAL General Yes Jeffery Graf, LAURA Note: To get betjah documented as of this encounter Visit Diagnoses Not on filedocumented in this encounter Additional Health Concerns Noted Time Assessment 05/18/2019 12:45 PM DITTO MACHINE OPERATOR A Body Mass Index follow-up plan has be en documented for the patient 04/24/2021 12:57 PM DITTO MACHINE OPERATOR PHQ-2 Depression Total Score: 1 documented as of this encounter Care Teams Start Date End Date Chief Design Engineer Relationship Specialty 07/31/07 Amena Arrington MD PCP - [address] [place] [address] Executive [address] [address] 01/24/15 Diann Almonte MD PCP - [address] [address] 04/10/10 Zohaib Hernandes MD [address] [address] 04/10/10 Joel Caceres MD [address] [place] [address] 04/10/10 Diego Cruz MD [address] [place] [address] 03/11/14 Lorna Trujillo, PA-C Surgery [address] [place] [address] 03/15/14 Jose J Desai MD Hematology & [address] [place], [place] [phone] 03/18/14 Shahida Adan RN documented as of this encounter
--- OUTSIDE RECORDS SUMMARY | 2021-06-28 08:34 | XMS REPORT | Clinical Summary ---
Author Author [facility] Health Organization [facility] Address Unknown Phone Unavailable Care Team Providers Care Manager Delivery Name Role Phone Augustine Romeo MD PCP [...] Health Maintenance Due Date Last Done Comments DXA Scan 1942 COVID-19 Vaccine (1) 1952 Pneumococcal Vaccine: 65+ 2007 Years (1 of 1 - PPSV23) Influenza Vaccine (#1) 2021 HPV Vaccine Aged Out No longer eligible based on patient's age to complete this topic Hepatitis A Vaccine Aged Out No longer eligible based on patient's age to complete this topic Hepatitis B Vaccine Aged Out No longer eligible based on patient's age to complete this topic Hib Vaccine Aged Out No longer eligible based on patient's age to complete this topic IPV Vaccine Aged Out No longer eligible based on patient's age to complete this topic Meningococcal Vaccine Aged Out No longer eligib le based on patient's age to (MCV4) complete this topic Rotavirus Vaccine Aged Out No longer eligible based on patient's age to complete this topic Results Not on filefrom Last 3 Months Insurance Type Payer Benefit Subscriber ID Effective Phone Address Plan / Dates Group Medicare MEDICARE ZZMEDICARE [id number] Effective [phone] [address] [place] [address] for [id number] [place] [address] [place]PO [place] [id number] Effective [phone] [phone] - for all [place], [place] dates [address] L/CAP [address] [facility] (Home) [place], [place] [address] Advance Directives Patient Equipment Specialist Explanation Type Date Recorded Living Will CPR Directives Durable Medical POA Care Teams Start Date End Date Manager Delivery Relationship Specialty 11/03/11 Augustine Romeo MD PCP - General Family Medicine
--- OUTSIDE RECORDS SUMMARY | 2021-06-28 08:34 | XMS REPORT | Encounter Summary ---
Author Author [facility] Organization [facility] Address Unknown Phone Unavailable Care Team Providers Care Mud Trucker Name Role Phone Amena Arrington MD [phone] Zohaib Hernandes MD Unavailable Joel Caceres MD Unavailable Diego Cruz MD Unavailable Lorna TrujilloC Unavailable Jose J Desai MD Unavailable Shahida Adan RN Unavailable Unavailable Diann Almonte MD PCP Reason for Referral * Consult, Test & Treat (Routine) - New Request Diagnoses / Procedures Referred By Contact [facility] REQUEST [place] [address] [employer] [address] [place] [address] Referral ID Status Reason Start Date Expiration Visits Vi sits Date Requested Authorized [id number] New Request 05/17/2021 05/17/2022 1 1 ERN KEEPER Reason for Visit * Reason Comments Cardiac Eval Telephone Call Only to disc uss BP Encounter Details Care Team Description Date [place] [address] [facility] [address] [place] [address] Cardiac Eval (Telephone Call Only to dis cuss BP ) 05/17/2021 Scheduled Cardiology: [facility], [address] [address] [facility]. [address] [place] [address] Social History Date Tobacco Use Types Packs/Day Years Used Never Smoker Smokeless Tobacco: Never Used Comments Alcohol Use Standard Drinks/Week No 0 (1 standard drink = 0.6 o z pure alcohol) Sex Assigned at Date Recorded Female 11/16/2019 4:04 PM CDT Date Recorded COVID-19 Exposure Response 04/24/2021 10:23 AM PATTERN KEEPER In the last month, have you been [...] impairment: No documented as of this encounter Progress Notes * Anil Borges MD - 05/17/2021 11:30 AM PATTERN KEEPER Date of Service: 05/17/2021 Emily Gu is a 80 y.o. female. HPI Ms. Emily Gu and I had telephone encounter today for blood pressure questi ons amongst other concerns. She is a nice lady whom I initially met in late Hina nava in our [facility] clinic with Dr. Elias. She has a notable PMH of CAD w ith stenting to her LAD in 2007 (bare metal stent, with a sebsequent KEESHA in the same year due to restenosis), CHB s/p dual chamber PPM, HTN, dyslipidemia and at rial dysrhythmias. Our visit previously in the fellows clinic was at the requ est of her orthopedic surgeon for a pre-op evaluation and medical optimization. She tells me today that the surgery is on hold and she is currently doing physi herbie therapy. She tells me that her blood pressure will vary from day-to-day between 117-140/8 0s and she definitely notices feeling out of sorts if the blood pressure is high . She tells me that she feels "like I need a nap" when the blood pressure is on the high range. She is not having any lightheadedness or syncope or falls, for tunately. She denies chest pain, resting dyspnea, palpitations, lower extremity edema or o ther concerning symptoms. She also wanted to discuss her recent remote pacemaker interrogation, and partic ularly that she had been told she was pacing about 20% of the time in the upper part of her heart which seemed unusual to her. Her pacemaker was initially impl anted for complete heart block, but she also carries a diagnosis of sinus node d ysfunction, and we discussed that it would certainly appear to me that the pacem gabriel is functioning appropriately as it is programmed. She does have about 1.5- 2 years of estimated battery remaining on the device and she is aware of that. She denies any bleeding issues with her aspirin regimen. She reports tolerating her lipid-lowering therapy that includes rosuvastatin and longstanding use of n iacin as well. Her most recent lipid panel included: Lab Results Component Value Date LDL 64 04/26/2021 HDL 89 04/26/2021 CHOL 165 04/26/2021 TRIG 61 04/26/2021 AST 30 04/26/2021 ALT 19 04/26/2021 There were no vitals filed for this visit. There is no height or weight on file to calculate BMI. Past Medical History Patient Active Problem List [...] IDC 7 mm by mammography ER 97% PA 51% Her-2 negative Ki-67 20% s/p left simple mastectomy and SNBx 05/14/14 ICC Stage I [id number] grade 2 IDC (2:00) 9 mm 1 sentinel node negative ER 100% PA 50% Her-2 negative Ki-67 15% Oncology: Dr. 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 Family history of ischemic heart disease 03/13/2010 Atrial premature beats 03/13/[address] De La Torre who recommended increasing her metoprolol to 25 mg twice a day. DM (diabetes mellitus) ([facility]) 03/13/2010 Diagnosed in the summer of 2008. a. hospitalized in January at [place] with elevated blood sugar of approx imately 280. Angina 07/31/2007 CAD (coronary artery disease) 07/31/2007 1. Bare metal stent placed in the anterior descending coronary artery on at 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 Hypertension Hyperlipidemia Review of Systems Constitutional: Negative. Negative for fever and malaise/fatigue. HENT: Negative. Eyes: Negative. Cardiovascular: Negative. Negative for chest pain, claudication, dyspnea on exe rtion, orthopnea, paroxysmal nocturnal dyspnea and syncope. Respiratory: Negative. Endocrine: Negative. Hematologic/Lymphatic: Negative. Skin: Negative. Musculoskeletal: Positive for back pain. Gastrointestinal: Negative. Negative for bloating, abdominal pain, constipation and diarrhea. Genitourinary: Negative. Neurological: Negative. Psychiatric/Behavioral: Negative. Allergic/Immunologic: Negative. Physical Exam A formal exam could not be completed due to the telephone nature of our visit, b ut she does have fluent speech and answers questions appropriately. She did not sound breathless during the encounter on the phone. Cardiovascular Studies Cardiovascular Health Factors Vitals BP Readings from Last 3 Encounters: 04/24/21 122/68 01/12/21 118/74 10/18/20 137/71 Wt Readings from Last 3 Encounters: 04/24/21 60.4 kg (133 lb 3.2 oz) 01/12/21 58.5 kg (129 lb) 10/18/20 61.2 kg (135 lb) BMI Readings from Last 3 Encounters: 04/24/21 23.60 kg/m 01/12/21 22.49 kg/m 10/18/20 23.91 kg/m Smoking Social History Tobacco Use Smoking Status Never Smoker Smokeless Tobacco Never Used Lipid Profile Cholesterol Date Value Ref Range Status 04/26/2021 165 Final HDL Date Value Ref Range Status 04/26/2021 89 Final LDL Date Value Ref Range Status 04/26/2021 64 Final Triglycerides Date Value Ref Range Status 04/26/2021 61 Final Blood Sugar No results found for: HGBA1C Glucose Date Value Ref Range Status 04/26/2021 102 Final 11/20/2019 85 70 - 100 MG/DL Final 11/19/2019 103 (H) 70 - 100 MG/DL Final 07/25/2006 92 70 - 110 MG/DL Final Glucose, POC Date Value Ref Range Status 05/14/2014 105 (H) 70 - 100 MG/DL Final 05/14/2014 86 70 - 100 MG/DL Final 02/18/2008 131 (H) 70 - 110 MG/DL Final Problems Addressed Today Encounter Diagnoses Name Primary? Coronary artery disease without angina pectoris Yes Essential hypertension Cardiac pacemaker in situ Assessment and Plan 1. Coronary artery disease without angina pectoris 2. Essential hypertension 3. Cardiac pacemaker in situ I had a 10-minute phone discussion with Ms. Gu today about her questions, cardiac issues and ongoing management options. Overall, it sounds as though she is doing okay and I do not advocate making any changes in her medication regime n. Given her age, I would like to see the blood pressure ideally <130/80 mmHg, but at least <140/90 mmHg. Since she reports some episodes of systolic blood pressures in the 703276 mmHg range, I think we should avoid increasing her blood pressure medication at this time. We reviewed the findings of her pacemaker and we will continue to follow that with remote interrogations. I asked her to return for a follow up clinic visit in 1 year, or sooner for new questions or problems. Thanks Dr. Almonte, for allowing me to see this nice patient. If I can elaborate any further or be of additional assistance, please don't hesitate to contact me. Current Medications (including today's revisions) aspirin EC 325 mg tablet Take 325 mg by mouth daily. CALCIUM PO Take 2 tablets by mouth twice daily. cetirizine (ZYRTEC) 10 mg tablet Take [...] mg tablet Take 1 tablet by mouth three times daily as needed hydrOXYchloroQUINE (PLAQUENIL) 200 mg tablet Take 200 mg by mouth twice regan y. letrozole (FEMARA) 2.5 mg tablet Take one [...] tablet TAKE 1 TABLET BY MOUTH DAILY sucralfate (CARAFATE) 1 gram tablet Take 1 g by mouth four times daily. zolpidem (AMBIEN) 5 mg tablet Take 5 mg by mouth at bedtime as needed for Sl eep. Total Time Today was 21 minutes in the following activities: Preparing to see e patient, Obtaining and/or reviewing separately obtained history, Performing a medically appropriate examination and/or evaluation, Counseling and educating e patient/family/caregiver, Ordering medications, tests, or procedures and Docum enting clinical information in the electronic or other health record ERN KEEPER documented in this encounter Miscellaneous Notes * Patient Instructions - Anil Borges MD - 05/17/2021 11:30 AM PATTERN KEEPER Keep checking blood pressure at least 2 or 3 times a week, and ideally first thing in the morning. We want to aim for a goal blood pressure of at least < 140/90 mmHg, but ideally closer to 130/80 mmHg. Continue the present cardiac medications without change for now. Give us an update on the blood pressure readings if they are consistently rem aining above goal levels. Continue to have a remote (at home) permanent pacemaker device checks every 3 months, and we will plan for an in-office recheck of device function in about 12 months. Return for a follow up clinic visit in 1 year, or sooner for new questions or problems. ERN KEEPER documented in this encounter Plan of Treatment Order Schedule Name Type Priority Associated Diag noses Expected: 05/17/2022, Expires: 2 DEVICE EVALUATION - PPM Device Check Routine Cardia c pacemaker in situ documented as of this encounter Goals Goal Patient Associated Recent Progress Patient-Stat Aut hor Goal Type Problems ed? GOAL General Yes Jeffery Graf, LAURA Note: To renetta jacobs documented as of this encounter Visit Diagnoses Diagnosis Coronary artery disease without angina pectoris - Primary Essential hypertension Unspecified essential hypertension Cardiac pacemaker in situ * Addendum Note - Gayle Caban RN - 05/17/2021 11:30 AM PATTERN KEEPER Addended by: GAYLE CABAN on: 05/17/2021 01:52 PM Modules accepted: Orders ERN KEEPER documented in this encounter Historical Medications * This list may reflect changes made after this encounter. Start Date End Date Medication Sig Dispensed Refills 05/09/2021 sucralfate (CARAFATE) 1 Take 1 g by 0 gram tablet mouth four times daily. added in this encounter Orders First Ordered Date Appointment Count Last Ordered Date REQUEST FOR CARDIOLOGY APPOINTMENT 1 01/2021 documented in this encounter Additional Health Concerns Noted Time Assessment 05/18/2019 12:45 PM PATTERN KEEPER A Body Mass Index follow-up plan has be en documented for the patient 04/24/2021 12:57 PM PATTERN KEEPER PHQ-2 Depression Total Score: 1 documented as of this encounter Care Teams Start Date End Date Mud Trucker Relationship Specialty 07/31/07 Amena Arrington MD PCP - [address] [place] [address] [address] 01/24/15 Diann Almonte MD PCP - [address] [address] 04/10/10 Zohaib Hernandes MD [address] [place] [address] 04/10/10 Joel Caceres MD [address] [place] [address] 04/10/10 Diego Cruz MD [address] [facility] [place] [address] 03/11/14 Lorna Trujillo, PA-C Surgery [address] [place] [address] 03/15/14 Jose J Desai MD Hematology & [address] [place] [address] 03/18/14 Shahida Adan RN documented as of this encounter
--- OUTSIDE RECORDS SUMMARY | 2021-06-28 08:34 | XMS REPORT | Encounter Summary ---
Author Author [facility] Organization [facility] Address Unknown Phone Unavailable Care Team Providers Care Automatic Embroidery Machine Tender Name Role Phone Amena Arrington MD [phone] Zohaib Hernandes MD Unavailable Joel Caceres MD Unavailable Diego Cruz MD Unavailable Lorna Trujillo PA-C Unavailable Jose J Desai MD Unavailable Shahida Adan RN Unavailable Unavailable Diann Almonte MD PCP Reason for Visit * Reason Comments Medication Refill rosuvastatin Encounter Details Care Team Description Date Type Department Nicola Quiros MD Forwarding Address Unknown Medication Refill (rosuvastatin) 05/20/2021 Refill Cardiology: [facility], [address] [address] [facility] [place] [address] Social History Date Tobacco Use Types Packs/Day Years Used Never Smoker Smokeless Tobacco: Never Used Comments Alcohol Use Standard Drinks/Week No 0 (1 standard drink = 0.6 o z pure alcohol) Sex Assigned at Date Recorded Female 11/16/2019 4:04 PM CDT Date Recorded COVID-19 Exposure Response 04/24/2021 10:23 AM RADIO TESTER In the last month, have you been [...] Date End Date Prescription Sig Dispensed Refills 05/21/2021 05/22/2021 rosuvastatin (CRESTOR) 10 TAKE 1 TABLET 90 tablet 1 mg tablet BY MOUTH DAILY documented in this encounter Plan of Treatment Not on filedocumented as of this encounter Goals Goal Patient Associated Recent Progress Patient-Stat Aut hor Goal Type Problems ed? GOAL General Yes Jeffery Graf RN Note: To renetta jacobs documented as of this encounter Visit Diagnoses Not on filedocumented in this encounter Discontinued Medications Start Date End Date Medication Sig Discontinue Reason 11/14/2020 05/21/2021 rosuvastatin (CRESTOR) 10 TAKE 1 mg tablet TABLET BY MOUTH DAILY documented as of this encounter Additional Health Concerns Noted Time Assessment 05/18/2019 12:45 PM RADIO TESTER A Body Mass Index follow-up plan has be en documented for the patient 04/24/2021 12:57 PM RADIO TESTER PHQ-2 Depression Total Score: 1 documented as of this encounter Care Teams Start Date End Date Automatic Embroidery Machine Tender Relationship Specialty 07/31/07 Amena Arrington MD PCP - [address] [place] [address] Pharmacy Customer Care Specialist[address] [address] 01/24/15 Diann Almonte MD PCP - [address] [address] 04/10/10 Zohaib Hernandes MD [address] [place] [phone] 04/10/10 Joel Caceres MD [address] [facility] [place], [place] [phone] 04/10/10 Diego Cruz MD [address] [facility] [place], [place] [phone] 03/11/14 Lorna Trujillo, JOHNATHANC Surgery [address] [place] [address] 03/15/14 oJse J Desai MD Hematology & [address] [place], [place] [phone] 03/18/14 Shahida Adan, LAURA documented as of this encounter
--- OUTSIDE RECORDS SUMMARY | 2021-06-28 08:34 | XMS REPORT | Encounter Summary ---
Author Author [facility] Organization [facility] Address Unknown Phone Unavailable Care Team Providers Care Sales Operations Associate Name Role Phone Amena Arrington MD [phone] Zohaib Hernandes MD Unavailable Joel Caceres MD Unavailable Diego Cruz MD Unavailable Lorna Trujillo PA-C Unavailable Jose J Desai MD Unavailable Shahida Adan RN Unavailable Unavailable Diann Almonte MD PCP Reason for Visit * Reason Onset Date Comments High Blood Pressure 05/02/2021 Encounter Details Care Team Description Date Type Department Laxmi Mckeon RN High Blood Pressure 05/02/2021 Telephone Cardiology: [facility] [address] [facility], [address] [place] [address] Social History Date Tobacco Use Types Packs/Day Years Used Never Smoker Smokeless Tobacco: Never Used Comments Alcohol Use Standard Drinks/Week No 0 (1 standard drink = 0.6 o z pure alcohol) Sex Assigned at Date Recorded Female 11/16/2019 4:04 PM CDT Date Recorded COVID-19 Exposure Response 04/24/2021 10:23 AM LOW VOLTAGE ELECTRICIAN In the last month, have you been [...] encounter Miscellaneous Notes * Telephone Encounter - Laxmi Mckeon RN - 05/02/2021 4:28 PM LOW VOLTAGE ELECTRICIAN Pt called back - her Bp is now 109/63 HR 81. She reports that she has been taking the Toprol at night and in the morning her blood pressure has been high and then usually goes down by afternoon. She will c ontinue to monitor closely. Requested she take her Bps three times daily. She is agreeable . VOLTAGE ELECTRICIAN * Telephone Encounter - Laxmi Mckeon RN - 05/02/2021 4:10 PM LOW VOLTAGE ELECTRICIAN Images from the original note were not included. Mary Escamilla MBBS You 13 minutes ago (3:56 PM) I am glad her bp has improved, will need to see her in clinic sooner, given her elevated bp. Mary Message text VOLTAGE ELECTRICIAN * Telephone Encounter - Laxmi Mckeon RN - 05/02/2021 2:39 PM LOW VOLTAGE ELECTRICIAN Pt reports that since we talked Bps have been as followed: 12:00p Bp 145/71 HR 81 Advised patient that if Bp spike again Dr. Escamilla wanted her evaluated in the ED. She is agreeable. Will route to Dr. Escamilla. Will send to Lilliana Martin to see about working pt into clin ic next week. VOLTAGE ELECTRICIAN * Telephone Encounter - Laxmi Mckeon RN - 05/02/2021 2:36 PM LOW VOLTAGE ELECTRICIAN Images from the original note were not included. Mary Escamilla MBBS King, Tori, RN Caller: Unspecified (Today, 9:38 AM) I would have her see urgent care as soon as possible, see us in clinic or go to the ED, her bp is elevated and is symptomatic from it, and will need a better bp medication that metoprolol. Thank you Mary VOLTAGE ELECTRICIAN * Telephone Encounter - Laxmi Mckeon RN - 05/02/2021 11:07 AM LOW VOLTAGE ELECTRICIAN Remote received. From: Sienna Kaur RN Sent: 05/02/2021 10:45 AM LOW VOLTAGE ELECTRICIAN To: Cvm Nurse Gen Card Team Red Subject: BCW-f/u BP Looks like Laxmi Scales spoke to this pt t his morning about high BP. Pt also s ent a remote on her own. (it looked fine) I told her to recheck her BP and that a nurse would call her. Could someone pls f/u on this? VOLTAGE ELECTRICIAN * Telephone Encounter - Laxmi Mckeon RN - 05/02/2021 9:38 AM LOW VOLTAGE ELECTRICIAN Pt LM on nurse line stating that her Bp was 183/88 HR 80 this morning. Returned patients call - she reports that this a.m. she is feeling weak but no o ther symptoms noted today. She reports that she was shaky yesterday but did not take her Bp. Requested patient start monitor Bps daily. Will route to physician for recommendations. VOLTAGE ELECTRICIAN documented in this encounter Plan of Treatment Not on filedocumented as of this encounter Goals Goal Patient Associated Recent Progress Patient-Stat Aut hor Goal Type Problems ed? GOAL General Yes Jeffery Graf RN Note: To get bettter documented as of this encounter Visit Diagnoses Not on filedocumented in this encounter Additional Health Concerns Noted Time Assessment 05/18/2019 12:45 PM LOW VOLTAGE ELECTRICIAN A Body Mass Index follow-up plan has be en documented for the patient 04/24/2021 12:57 PM LOW VOLTAGE ELECTRICIAN PHQ-2 Depression Total Score: 1 documented as of this encounter Care Teams Start Date End Date Sales Operations Associate Relationship Specialty 07/31/07 Amena Arrington MD PCP - [address] [place] [address] [address] 01/24/15 Diann Almonte MD PCP - [address] [address] 04/10/10 Zohaib Hernandes MD [address] [address] 04/10/10 Joel Caceres MD [address] [address] 04/10/10 Diego Cruz MD [address] [place] [address] 03/11/14 Lorna Trujillo, PA-C Surgery [address] [place] [address] 03/15/14 Jose J Desai MD Hematology & [address] [place] [address] 03/18/14 Shahida Adan, LAURA documented as of this encounter
--- OUTSIDE RECORDS SUMMARY | 2021-06-28 08:34 | XMS REPORT | Encounter Summary ---
Author Author [facility] Organization [facility] Address Unknown Phone Unavailable Care Team Providers Care Health Care Specialist Name Role Phone Amena Arrington MD [phone] Zohaib Hernandes MD Unavailable Joel Caceres MD Unavailable Diego Cruz MD Unavailable Lorna Trujillo PA-C Unavailable Jose J Desai MD Unavailable Shahida Adan RN Unavailable Unavailable Diann Almonte MD PCP Reason for Visit * Reason Comments Lab Results historical lab results reci eved from PCP Encounter Details Care Team Description Date Type Department Marina Lea RN Lab Results (historical lab results reci eved from PCP) 05/11/2021 Documentation Cardiology: [facility] [address], [address] [place] [address] Social History Date Tobacco Use Types Packs/Day Years Used Never Smoker Smokeless Tobacco: Never Used Comments Alcohol Use Standard Drinks/Week No 0 (1 standard drink = 0.6 o z pure alcohol) Sex Assigned at Date Recorded Female 11/16/2019 4:04 PM CDT Date Recorded COVID-19 Exposure Response 04/24/2021 10:23 AM TURNSTILE ATTENDANT In the last month, have you been [...] Routine 04/26/2021 COMPREHENSIVE METABOLIC Routine 04/26/2021 PANEL documented in this encounter Results * LIPID PROFILE (04/26/2021) Cholesterol 165 [...] LAB eGFR Non 63 OTHER OUTSIDE LAB Martiniquais eGFR OTHER OUTSIDE [place] LAB Anion Gap 10 OTHER OUTSIDE LAB Specimen Blood - Blood (substance) Performing Organization Address City/State/ZIP Code P janel Number OTHER OUTSIDE LAB documented in this encounter Visit Diagnoses Not on filedocumented in this encounter Additional Health Concerns Noted Time Assessment 05/18/2019 12:45 PM TURNSTILE ATTENDANT A Body Mass Index follow-up plan has be en documented for the patient 04/24/2021 12:57 PM TURNSTILE ATTENDANT PHQ-2 Depression Total Score: 1 documented as of this encounter Care Teams Start Date End Date Health Care Specialist Relationship Specialty 07/31/07 Amena Arrington MD PCP - [address] [place] [address] [address] [address] 01/24/15 Diann Almonte MD PCP - [address] [address] 04/10/10 Zohaib Hernandes MD [address] [address] 04/10/10 Joel Caceres MD [address] [place] [address] 04/10/10 Deigo Cruz MD [address] [place] [address] 03/11/14 Lorna Trujillo, PA-C Surgery [address] [place] [address] 03/15/14 Jose J Desai MD Hematology & [facility] [place], [place] [id number] 03/18/14 Shahida Adan RN documented as of this encounter
[2021-06-28 08:56] LABS: HEMATOCRIT 35 % (35-52); HEMOGLOBIN 11.3 g/dL (11.5-16.0); MEAN CORPUSCULAR HEMOGLOBIN 28 pg (25-34); MEAN CORPUSCULAR VOLUME 88 fL (80-99); WHITE BLOOD COUNT 5.7 10^3/uL (4.3-11.0)
[2021-06-28 08:57] LABS: BASOPHILS % (AUTO) 1 % (0-10); EOSINOPHILS % (AUTO) 3 % (0-10); LYMPHOCYTES # (AUTO) 1.9 X 10^3 (1.0-4.0); LYMPHOCYTES % (AUTO) 34 % (12-44); MEAN CORPUSCULAR HGB CONC 32 g/dL (32-36); MEAN PLATELET VOLUME 8.8 fL (9.0-12.2); MONOCYTES % (AUTO) 11 % (0-12); NEUTROPHILS # (AUTO) 2.9 X 10^3 (1.8-7.8); NEUTROPHILS % (AUTO) 52 % (42-75); PLATELET COUNT 305 10^3/uL (130-400)
[2021-06-28 08:58] LABS: EOSINOPHILS # (AUTO) 0.2 10^3/uL (0.0-0.3); MONOCYTES # (AUTO) 0.6 X 10^3 (0.0-1.0)
[2021-06-28 09:00] LABS: INR 0.9 (0.8-1.4); PROTHROMBIN TIME PATIENT 12.8 SEC (12.2-14.7)
[2021-06-28] MEDS ORDERED: ASPIRIN 81 MG CHEW (CHILDREN'S ASA) PO ONE (09:00)
--- NOTE | 2021-06-28 09:05 | Diagnostic Imaging Report ---
INDICATION: Left-sided chest pain. TIME OF EXAM: 8:55 AM. COMPARISON: Correlation is made with the prior chest from 11/17/2019. FINDINGS: The heart size is normal. A dual-lead lead left subclavian cardiac pacer is in place. The lungs are clear. No infiltrates are seen. There is no effusion or pneumothorax. A dense nodule in the right base is stable. IMPRESSION: No acute cardiopulmonary process is detected. Dictated by: Dictated on workstation # [id number]
[2021-06-28] MEDS ORDERED: morphine INJ 10 MG/ML 1ML (SYR OR VIAL) IVP STA (09:10)
[2021-06-28] MEDS ORDERED: PANTOPRAZOLE 40 MG (PROTONIX) VIAL IV STA (09:10)
[2021-06-28] MEDS ORDERED: ONDANSETRON 4 MG/2 ML (SDV) Z0FRAN IVP STA (09:10)
--- NOTE | 2021-06-28 09:21 | ED Chest Pain ---
General Stated Complaint: CHEST PAIN Source: patient History of Present Illness Date Seen by Provider: Jun 28, 2021 Time Seen by Provider: 08:26 Initial Comments 81-year-old female presenting with complaints of left-sided sharp chest pain since earlier this morning. She reports that that started at 6 AM or earlier and she thought that it was indigestion and went back to sleep. Then when she woke up she was still having the pain and she remembered that she had had sharp pains on the left side in the past when her pacemaker needed to be changed out. She denies having a cough or fever. She has had some nausea after she took nit roglycerin for the chest pain. She states that the pain was a little bit better after the nitroglycerin. Otherwise the pain has been constant and nothing makes it worse or better. She denies having change in her bowels, nasal congestion, sore throat, radiation of the pain, pain with urination, blood in her stools, blood in her urine. She appears anxious. Although she has chest pain and she took nitroglycerin she did not take aspirin at home. 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 Associated Symptoms: No abdominal pain, No back pain, No diaphoresis, No dizziness, No edema, No fatigue, No fever/chills, No headache, No heartburn; nausea/vomiting (nausea after taking nitroglycerin); No rash; shortness of breath; No swelling/lump in chest, No syncope; weakness (general) Allergies and Home Medications Allergies Coded Allergies: adhesive tape (Verified Allergy, Unknown, 03/17/20) ciprofloxacin (Verified Allergy, Unknown, 03/17/20) egg (Verified Allergy, Unknown, 03/17/20) influenza A (H5N1) virus vaccine mo (Verified Allergy, Unknown, 03/17/20) iodine (Verified Allergy, Unknown, 03/17/20) metronidazole (Verified Allergy, Unknown, 03/17/20) sulfamethoxazole (Verified Allergy, Unknown, 03/17/20) trimethoprim (Verified Allergy, Unknown, 03/17/20) Patient Home Medication List Home Medication List Reviewed: Yes Aspirin (Aspirin) 325 Mg Tablet, 325 MG PO DAILY, (Reported) Entered as Reported by: USMAN RODRIGUEZ on 04/21/19 162 Cetirizine HCl (Cetirizine HCl) 10 Mg Tablet, 10 MG PO DAILY, (Reported) Entered as Reported by: USMAN RODRIGUEZ on 04/21/19 162 Diazepam (Diazepam) 5 Mg Tablet, 5 MG PO DAILY PRN for ANXIETY, (Reported) Entered as Reported by: USMAN RODRIGUEZ on 04/21/19 162 Ezetimibe (Ezetimibe) 10 Mg Tablet, 5 MG PO DAILY, (Reported) Entered as Reported by: USMAN RODRIGUEZ on 04/21/191622 Fluoxetine HCl (Prozac) 20 Mg Capsule, 20 MG PO DAILY, (Reported) Entered as Reported by: USMAN RODRIGUEZ on 04/21/191622 Hydrocodone Bit/Acetaminophen (HYDROcodone/APAP 10/325 TABLET) 1 Each Tablet, 1 TAB PO Q6H PRN for PAIN-MODERATE Prescribed by: MORRIS MACIEL on 04/27/19 1110 L.acidoph & Paracasei,B.lactis (Probiotic) 1 Each Capsule, 1 EACH PO DAILY, (Reported) Entered as Reported by: USMAN RODRIGUEZ on 03/17/20 115 Letrozole (Letrozole) 2.5 Mg Tablet, 2.5 MG PO DAILY, (Reported) Entered as Reported by: USMAN RODRIGUEZ on 04/21/19 162 Meloxicam (Meloxicam) 7.5 Mg Tablet, 7.5 MG PO BID PRN for SPASMS, (Reported) Entered as Reported by: USMAN RODRIGUEZ on 03/17/20 115 Metoprolol Succinate (Metoprolol Succinate) 50 Mg Tab.er.24h, 50 MG PO DAILY, (Reported) Entered as Reported by: USMAN RODRIGUEZ on 03/17/20 115 Niacinamide (Niacin) 500 Mg Tablet, 500 MG PO DAILY, (Reported) Entered as Reported by: USMAN RODRIGUEZ on 04/21/19 162 Ondansetron (Ondansetron Odt) 4 Mg Tab.rapdis, 4 MG PO PRN PRN for NAUSEA/VOMITING, (Reported) Entered as Reported by: USMAN RODRIGUEZ on 03/17/20 1159 Pantoprazole Sodium (Protonix) 40 Mg Tablet.dr, 40 MG PO DAILY Prescribed by: MILLIE MIRANDA on 04/08/20 1320 Polyethylene Glycol 3350 (Miralax) 17 Gm Powd.pack, 17 GM PO DAILY, (Reported) Entered as Reported by: USMAN RODRIGUEZ on 04/21/19 1623 Rosuvastatin Calcium (Rosuvastatin Calcium) 10 Mg Tablet, 10 MG PO DAILY, (Reported) Entered as Reported by: USMAN RODRIGUEZ on 04/21/19 1623 Sucralfate (Sucralfate) 1 Gm Tablet, 1 GM PO ACHS, (Reported) Entered as Reported by: USMAN RODRIGUEZ on 03/17/20 115 Zolpidem Tartrate (Zolpidem Tartrate) 5 Mg Tablet, 5 MG PO HS, (Reported) Entered as Reported by: USMAN RODRIGUEZ on 03/17/20 1159 Review of Systems Review of Systems Constitutional: No chills, No diaphoresis, No fever EENTM: No Symptoms Reported Respiratory: See HPI; Denies Cough, Denies Stridor, Denies Wheezing Cardiovascular: See HPI; Denies Edema, Denies Palpitations Gastrointestinal: Denies Abdominal Pain, Denies Constipated, Denies Diarrhea; Nausea (after taking ntg); Denies Vomiting Genitourinary: Denies Burning, Denies Frequency, Denies Flank Pain, Denies Hematuria, Denies Pain Musculoskeletal: see HPI, other (tender to palpation on left chest wall, reproduces sharp pains in chest) Skin: No rash Psychiatric/Neurological: Anxiety; Denies Headache Hematologic/Lymphatic: Denies Blood Clots Past Atqczhp-Hfjuwv-Eudbqy Hx Patient Social History Tobacco Use?: No Immunizations Up To Date First/Initial COVID19 Vaccinat: 07/2020 Second COVID19 Vaccination Prince: 08/2020 Seasonal Allergies Seasonal Allergies: No Past Medical History Surgery/Hospitalization HX: Pacemaker, Mastectomy Left side Surgeries: Yes (STIMULATOR/REMOVAL BACK, LEFT MASECTOMY) Appendectomy, Coronary Stent, Gallbladder, 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, Pacemaker, Tonsillectomy Respiratory: No Currently Using CPAP: No Currently Using BIPAP: No Cardiac: Yes (CARDIAC STENTS-2008) Coronary Artery Disease, Heart Attack Neurological: Yes 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 History: 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 Sexually Transmitted Disease: No HIV/AIDS: No Genitourinary: No Gastrointestinal: Yes Gastroesophageal Reflux, Chronic Constipation Musculoskeletal: Yes Arthritis, Chronic Back Pain Endocrine: No HEENT: Yes (GLASSES) Loss of Vision: Denies Hearing Impairment: Denies Cancer: Yes Breast Did You Recieve Any Treatments: Yes What Type of Treatment Did You: Surgical Intervention Psychosocial: No Anxiety Integumentary: No Blood Disorders: No Adverse Reaction/Blood Tranf: No (N/A) Physical Exam Vital Signs Vital Signs - First Documented 06/28/21 08:30 Temp 36.0 Pulse 77 Resp 15 B/P (MAP) 156/63 (94) Pulse Ox 98 O2 Delivery Room Air Capillary Refill : Height, Weight, BMI Height: '" Weight: lbs. oz. kg; 22.00 BMI Method: General Appearance: Anxious, Chronically ill (appears older than stated age), Mild Distress HEENT: PERRL/EOMI, Pharynx Normal Neck: Full Range of Motion, Normal Inspection, Non Tender, Supple Respiratory: Lungs Clear, Normal Breath Sounds, No Accessory Muscle Use, No Respiratory Distress; No Rhonci, No Stridor, No Wheezing; Other (tender to palpation on left side of chest, especially posterior chest wall towards scapula reproduces sharp pain in chest) Cardiovascular: Regular Rate, Rhythm, No Edema, Normal Peripheral Pulses Gastrointestinal: Normal Bowel Sounds, No Pulsatile Mass, Non Tender, Soft Rectal: Deferred Extremity: Normal Capillary Refill, Normal Inspection, No Pedal Edema Neurologic/Psychiatric: Alert, Oriented x3 Skin: Normal Color, Warm/Dry Progress/Results/Core Measures Results/Orders Lab Results Laboratory Tests Test 06/28/21 08:34 06/28/21 09:06 06/28/21 10:40 06/28/21 11:35 Range/Units White Blood Count 5.7 4.3-11.0 10^3/uL Red Blood Count 4.00 3.80-5.11 10^6/uL Hemoglobin 11.3 L 11.5-16.0 g/dL Hematocrit 35 35-52 % Mean Corpuscular Volume 88 80-99 fL Mean Corpuscular Hemoglobin 28 25-34 pg Mean Corpuscular Hemoglobin Concent 32 32-36 g/dL Red Cell Distribution Width 13.5 10.0-14.5 % Platelet Count 305 130-400 10^3/uL Mean Platelet Volume 8.8 L 9.0-12.2 fL Immature Granulocyte % (Auto) 0 % Neutrophils (%) (Auto) 52 42-75 % Lymphocytes (%) (Auto) 34 12-44 % Monocytes (%) (Auto) 11 0-12 % Eosinophils (%) (Auto) 3 0-10 % Basophils (%) (Auto) 1 0-10 % Neutrophils # (Auto) 2.9 1.8-7.8 X 10^3 Lymphocytes # (Auto) 1.9 1.0-4.0 X 10^3 Monocytes # (Auto) 0.6 0.0-1.0 X 10^3 Eosinophils # (Auto) 0.2 0.0-0.3 10^3/uL Basophils # (Auto) 0.0 0.0-0.1 10^3/uL Immature Granulocyte # (Auto) 0.0 0.0-0.1 10^3/uL Prothrombin Time 12.8 12.2-14.7 SEC INR Comment 0.9 0.8-1.4 Activated Partial Thromboplast Time 22 L 24-35 SEC Sodium Level 136 135-145 MMOL/L Potassium Level 4.0 3.6-5.0 MMOL/L Chloride Level 101 98-107 MMOL/L Carbon Dioxide Level 24 21-32 MMOL/L Anion Gap 11 5-14 MMOL/L Blood Urea Nitrogen 13 7-18 MG/DL Creatinine 0.81 0.60-1.30 MG/DL Estimat Glomerular Filtration Rate 74 BUN/Creatinine Ratio 16 Glucose Level 104 70-105 MG/DL Calcium Level 9.1 8.5-10.1 MG/DL Corrected Calcium 9.1 8.5-10.1 MG/DL Magnesium Level 1.8 1.6-2.4 MG/DL Total Bilirubin 0.4 0.1-1.0 MG/DL Aspartate Amino Transf (AST/SGOT) 25 5-34 U/L Alanine Aminotransferase (ALT/SGPT) 28 0-55 U/L Alkaline Phosphatase 90 40-136 U/L Troponin I < 0.30 < 0.30 <0.30 NG/ML Pro-B-Type Natriuretic Peptide 187.4 H <75.0 PG/ML Total Protein 6.0 L 6.4-8.2 GM/DL Albumin 4.0 3.2-4.5 GM/DL Lipase 33 8-78 U/L Influenza Type A Antigen NEGATIVE NEGATIVE Influenza Type B Antigen NEGATIVE NEGATIVE Urine Color YELLOW Urine Clarity CLEAR Urine pH 6.0 5-9 Urine Specific [place] 1.015 L 1.016-1.022 Urine Protein NEGATIVE NEGATIVE Urine Glucose (UA) NEGATIVE NEGATIVE Urine Ketones NEGATIVE NEGATIVE Urine Nitrite NEGATIVE NEGATIVE Urine Bilirubin NEGATIVE NEGATIVE Urine Urobilinogen 0.2 < = 1.0 MG/DL Urine Leukocyte Esterase NEGATIVE NEGATIVE Urine RBC (Auto) NEGATIVE NEGATIVE Urine RBC NONE /HPF Urine WBC 0-2 /HPF Urine Squamous Epithelial Cells 0-2 /HPF Urine Crystals NONE /LPF Urine Bacteria NEGATIVE /HPF Urine Casts NONE /LPF Urine Mucus NEGATIVE /LPF Urine Culture Indicated NO My Orders Orders - SERENA HARRINGTON MD Cbc With Automated Diff (06/28/21 08:47) Magnesium (06/28/21 08:47) Chest 1 View Ap/Pa Only (06/28/21 08:47) Ekg Tracing (06/28/21 08:47) Comprehensive Metabolic Panel (06/28/21 08:47) Protime With Inr (06/28/21 08:47) Partial Thromboplastin Time (06/28/21 08:47) Monitor-Rhythm Ecg Trace Only (06/28/21 08:47) Aspirin Chewable Tablet (Baby Aspirin Ch (06/28/21 09:00) Ed Iv/Invasive Line Start (06/28/21 08:47) Lipase (06/28/21 08:47) Troponin I Fs (06/28/21 08:47) Probnp Fs (06/28/21 08:47) Pantoprazole Injection (Protonix Injecti (06/28/21 09:10) Ondansetron Injection (Zofran Injectio (06/28/21 09:10) Morphine Injection (Morphine Injection (06/28/21 09:10) Ua Culture If Indicated (06/28/21 09:10) Influenza A & B Antigens (06/28/21 09:10) Isolation Central Supply Req (06/28/21 09:10) Troponin I Fs (06/28/21 10:31) Coronavirus Sars-Cov-2 So 2019 (06/28/21 09:06) Medications Given in ED Current Medications Medications Dose Ordered Sig/Bertin Route Start Time Stop Time Status Last Admin Dose Admin Aspirin 324 mg ONCE ONCE PO 06/28/21 09:00 06/28/21 09:01 DC 06/28/21 09:20 324 MG Vital Signs/I&O 06/28/21 06/28/21 08:30 11:45 Temp 36.0 Pulse 77 63 Resp 15 16 B/P (MAP) 156/63 (94) 111/60 Pulse Ox 98 96 O2 Delivery Room Air Room Air Progress Progress Note #1: Progress Note Obtain electrocardiogram to evaluate her heart from chest pain standpoint. Obtain chest x-ray to look at structural heart and lungs looking for source of her sharp chest pains. Obtain blood work to look at general electrolytes, blood count, cardiac enzymes, lipase and GI labs. Also obtain a urinalysis to look for signs of infection. Swab for COVID and influenza to see if either of these might be playing a role with her sharp pains. Since she reports that he was feeling like indigestion and she does take several medicines for reflux and heartburn will give a dose of Protonix and a dose of Zofran since she was having symptoms of nausea after the nitroglycerin. Have her take 324 mg aspirin p.o. since she did not do this at home. Try Morphine 2 mg IV for her sharp pain as well. Differential diagnosis includes myocardial infarction, pacemaker dysfunction, pneumonia, COVID, flu, costochondritis, esophageal spasm, pleurisy Progress Note #2: Progress Note Initial labs are stable without acute significant normality. Her troponin is negative. Her chest x-ray is clear without infiltrate or effusion. Her electrocardiogram appears stable with pacemaker spikes. She has resolution of pain with treatment here in the ED. Will obtain a second troponin and if it is still less than 0.3 we will plan on discharged home. She has a follow-up appointment with her electrical prospecting observer in the next week or 2. Progress Note #3: Progress Note Repeat troponin is still less than 0.3. Urinalysis was negative as well. Patient continues to feel well without any recurrent symptoms. Encouraged to keep follow-up with cardiology. Counseled on follow-up and return precautions. Advised to check back sooner if having more symptoms Initial ECG Impression Date: Jun 28, 2021 Initial ECG Impression Time: 08:24 Initial ECG Rate: 75 Initial ECG Comparisson: Changed (Previous ECG from November 2019 had large amount of artifact) Comment Atrial sensed ventricular paced rhythm of 75 bpm. TX interval 235 ms. QT interval 4 and 31 ms with a QTc interval [address] elevation. Previous tracing from November 2019 had a lot of artifact on it. Current tracing you can easily see the pacemaker spikes. Diagnostic Imaging Diagonstic Imaging: Xray Plain Films/CT/US/NM/MRI: chest Comments [facility] [place], [place] NAME: [facility] REC#: [id number] PT STATUS: REG ER : 1940 PHYSICIAN: SERENA HARRINGTON MD ADMIT DATE: 06/28/21/ER FS Draft Date of Exam:06/28/21 CHEST 1 VIEW AP/PA ONLY INDICATION: Left-sided chest pain. TIME OF EXAM: 8:55 AM. COMPARISON: Correlation is made with the prior chest from 11/17/2019. FINDINGS: The heart size is normal. A dual-lead lead left subclavian cardiac pacer is in place. The lungs are clear. No infiltrates are seen. There is no effusion or pneumothorax. A dense nodule in the right base is stable. IMPRESSION: No acute cardiopulmonary process is detected. Dictated on workstation # [id number] Dict: 06/28/21 0903 Trans: 06/28/21 0905 [id number] Interpreted by: ANANYA DAWN MD Electronically signed by: Reviewed: Reviewed by Me Departure Impression Primary Impression: Left-sided chest wall pain Additional Impression: Atypical chest pain Disposition: HOME, SELF-CARE Condition: Stable Departure-Patient Inst. Decision time for Depature: 11:36 Referrals: NILA CASAS MD (PCP/Family) Primary Care Physician Patient Instructions: Chest Pain, Adult ED Add. Discharge Instructions: Your pacemaker appears to be working appropriately from what we are seeing on your monitoring and testing here. Your heart tests looked ok and did not show any signs of new heart damage or a heart attack. The pain may have been from something other than your heart, such as the chest wall and muscles, your stomach, your esophagus, lining of lungs. If you have worsening pain or more symptoms then seek medical care again or see if the appointment with Cardiology may be moved up so you could be seen sooner. SERENA HARRINGTON MD Jun 28, 2021 09:21
[2021-06-28 09:36] LABS: BILIRUBIN,TOTAL 0.4 MG/DL (0.1-1.0); CALCIUM 9.1 MG/DL (8.5-10.1); CREATININE SERUM 0.81 MG/DL (0.60-1.30); MAGNESIUM 1.8 MG/DL (1.6-2.4)
[2021-06-28 11:45] VITALS: BP 111/60
[2021-06-28 11:49] LABS: BILIRUBIN,URINE NEGATIVE (NEGATIVE); CLARITY,URINE CLEAR; COLOR,URINE YELLOW; GLUCOSE, URINE (UA) NEGATIVE (NEGATIVE); KETONES,URINE NEGATIVE (NEGATIVE); LEUKOCYTE ESTERASE ,URINE NEGATIVE (NEGATIVE); NITRITE,URINE NEGATIVE (NEGATIVE); PROTEIN,URINE NEGATIVE (NEGATIVE)
[2021-06-28 11:54] LABS: BACTERIA,URINE NEGATIVE /HPF; SQUAMOUS EPITHELIAL CELL,UR 0-2 /HPF; WBC,URINE 0-2 /HPF
== END 2021-06-28 11:45 | disposition home or self-care (01) ==
LOC: EDUNIT# 08:25 → ER FS 08:26
DX: U07.1 COVID-19 (principal); I25.2 Old myocardial infarction; I25.10 Atherosclerotic heart disease of native coronary artery without angina pectoris; K21.9 Gastro-esophageal reflux disease without esophagitis; G89.29 Other chronic pain; M54.9 Dorsalgia, unspecified; F41.9 Anxiety disorder, unspecified; Z79.891 Long term (current) use of opiate analgesic; Z79.82 Long term (current) use of aspirin; Z79.899 Other long term (current) drug therapy
CPT/HCPCS: 36415; 71045; 80053; 81000; 83690; 83735; 83880; 84484; 85025; 85610; 85730; 87635; 87804; 93005; 93041

== ENCOUNTER 2021-12-03 00:26 | Emergency (ER) | payer MEDICARE ==
[~2021-12-03] VITALS: Ht 157 cm; Wt 56.0 kg
[2021-12-03 00:39] VITALS: BP 165/72
--- NOTE | 2021-12-03 01:15 | ED Fall/Injury ---
General Chief Complaint: Trauma-Non Activation Stated Complaint: FALL Nursing Triage Note: pt presents with report of fall. reports +LOC as she does not remember the fall and aroused on the floor. pt fell backwards, does not know what caused her to fall. struck back of head on tile floor. reports pain in the back of the head and a h/a with nausea, denies blurry vision. reports she took a PRN muscle relaxer and hydrocodone prior to the fall for her back pain and believes this atributed to her fall History of Present Illness Date Seen by Provider: Dec 03, 2021 Time Seen by Provider: 01:00 Initial Comments 81-year-old female patient brought in [facility] because of a fall and injury to the back of her head. Patient states she took muscle relaxant and hydrocodone for back pain around 2100 last night and woke up after about 3 hours to go to the bathroom and had a fall in the bathroom and woke up on the floor of the bathroom with hitting back of her head on the tile without remembering her fall. Patient rated her pain 5/10 and denies chest pain before or after the fall, shortness of breath, focal neurodeficit, nausea and vomiting. Patient is up-to-date with her tetanus immunization. Patient states she has had frequent falls. Location Injury Occurred: home Allergies and Home Medications Allergies Coded Allergies: adhesive tape (Verified Allergy, Unknown, 03/17/20) ciprofloxacin (Verified Allergy, Unknown, 03/17/20) egg (Verified Allergy, Unknown, 03/17/20) influenza A (H5N1) virus vaccine mo (Verified Allergy, Unknown, 03/17/20) iodine (Verified Allergy, Unknown, 03/17/20) metronidazole (Verified Allergy, Unknown, 03/17/20) sulfamethoxazole (Verified Allergy, Unknown, 03/17/20) trimethoprim (Verified Allergy, Unknown, 03/17/20) Patient Home Medication List Home Medication List Reviewed: Yes Aspirin (Aspirin) 325 Mg Tablet, 325 MG PO DAILY, (Reported) Entered as Reported by: USMAN RODRIGUEZ on 04/21/191622 Cetirizine HCl (Cetirizine HCl) 10 Mg Tablet, 10 MG PO DAILY, (Reported) Entered as Reported by: USMAN RODRIGUEZ on 11/12/19 1623 Diazepam (Diazepam) 5 Mg Tablet, 5 MG PO DAILY PRN for ANXIETY, (Reported) Entered as Reported by: USMAN RODRIGUEZ on 04/21/19 162 Ezetimibe (Ezetimibe) 10 Mg Tablet, 5 MG PO DAILY, (Reported) Entered as Reported by: USMAN RODRIGUEZ on 04/21/19 1623 Fluoxetine HCl (Prozac) 20 Mg Capsule, 20 MG PO DAILY, (Reported) Entered as Reported by: USMAN RODRIGUEZ on 04/21/19 1623 Hydrocodone Bit/Acetaminophen (HYDROcodone/APAP 10/325 TABLET) 1 Each Tablet, 1 TAB PO Q6H PRN for PAIN-MODERATE Prescribed by: MORRIS MACIEL on 04/27/19 1110 L.acidoph & Paracasei,B.lactis (Probiotic) 1 Each Capsule, 1 EACH PO DAILY, (Reported) Entered as Reported by: USMAN RODRIGUEZ on 03/17/20 115 Letrozole (Letrozole) 2.5 Mg Tablet, 2.5 MG PO DAILY, (Reported) Entered as Reported by: USMAN RODRIGUEZ on 04/21/19 1623 Meloxicam (Meloxicam) 7.5 Mg Tablet, 7.5 MG PO BID PRN for SPASMS, (Reported) Entered as Reported by: USMAN RODRIGUEZ on 03/17/20 115 Metoprolol Succinate (Metoprolol Succinate) 50 Mg Tab.er.24h, 50 MG PO DAILY, (Reported) Entered as Reported by: USMAN RODRIGUEZ on 03/17/20 1159 Niacinamide (Niacin) 500 Mg Tablet, 500 MG PO DAILY, (Reported) Entered as Reported by: USMAN RODRIGUEZ on 04/21/19 1623 Ondansetron (Ondansetron Odt) 4 Mg Tab.rapdis, 4 MG PO PRN PRN for NAUSEA/VOM ITING, (Reported) Entered as Reported by: USMAN RODRIGUEZ on 03/17/20 115 Pantoprazole Sodium (Protonix) 40 Mg Tablet.dr, 40 MG PO DAILY Prescribed by: MILLIE MIRANDA on 04/08/20 1320 Polyethylene Glycol 3350 (Miralax) 17 Gm Powd.pack, 17 GM PO DAILY, (Reported) Entered as Reported by: USMAN RODRIGUEZ on 04/21/19 1623 Rosuvastatin Calcium (Rosuvastatin Calcium) 10 Mg Tablet, 10 MG PO DAILY, (Reported) Entered as Reported by: USMAN RODRIGUEZ on 04/21/19 1623 Sucralfate (Sucralfate) 1 Gm Tablet, 1 GM PO ACHS, (Reported) Entered as Reported by: USMAN RODRIGUEZ on 03/17/20 1159 Zolpidem Tartrate (Zolpidem Tartrate) 5 Mg Tablet, 5 MG PO HS, (Reported) Entered as Reported by: USMAN RODRIGUEZ on 03/17/20 1159 Review of Systems Review of Systems Constitutional: no symptoms reported Eyes: No Symptoms Reported Ears, Nose, Mouth, Throat: no symptoms reported Cardiovascular: no symptoms reported Gastrointestinal: no symptoms reported Genitourinary: no symptoms reported Musculoskeletal: back pain Skin: see HPI All Other Systems Reviewed Negative Unless Noted: Yes Past Pabszhd-Mjdcag-Bnxbza Hx Patient Social History Tobacco Use?: No Substance use?: No Alcohol Use?: No Immunizations Up To Date Influenza Vaccine Up-to-Date: No; Not Current First/Initial COVID19 Vaccinat: unknown date Second COVID19 Vaccination Prince: unknown date COVID19 Vaccine Vine Pruner: unknown Seasonal Allergies Seasonal Allergies: No Past Medical History Surgery/Hospitalization HX: Pacemaker, Mastectomy Left side Surgeries: Yes (STIMULATOR/REMOVAL BACK, LEFT MASECTOMY) Appendectomy, Coronary Stent, Gallbladder, 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, Pacemaker, Tonsillectomy Respiratory: No Currently Using CPAP: No Currently Using BIPAP: No Cardiac: Yes (CARDIAC STENTS-2008) Coronary Artery Disease, Heart Attack Neurological: Yes Neuropathy DIETARY AID History: 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 Sexually Transmitted Disease: No HIV/AIDS: No Genitourinary: No Gastrointestinal: Yes Gastroesophageal Reflux, Chronic Constipation Musculoskeletal: Yes Arthritis, Chronic Back Pain Endocrine: No HEENT: Yes (GLASSES) Loss of Vision: Denies Hearing Impairment: Denies Cancer: Yes Breast Did You Recieve Any Treatments: Yes What Type of Treatment Did You: Surgical Intervention Psychosocial: No Anxiety Integumentary: No Blood Disorders: No Adverse Reaction/Blood Tranf: No (N/A) Physical Exam Vital Signs Vital Signs - First Documented 12/03/21 00:39 Pulse 63 Resp 18 B/P (MAP) 165/72 (103) Pulse Ox 97 O2 Delivery Room Air Capillary Refill : Height, Weight, BMI Height: '" Weight: lbs. oz. kg; 22.00 BMI Method: General Appearance: mild distress HEENT: PERRL/EOMI, other (5 x 5 cm hematoma in the scalp of occipital area) Neck: non-tender, full range of motion, supple Cardiovascular: regular rate, rhythm, no edema Respiratory: chest non-tender, lungs clear, normal breath sounds, no respiratory distress, no accessory muscle use Gastrointestinal: normal bowel sounds, non tender, soft, no organomegaly, no pulsatile mass Neurologic/Psychiatric: no motor/sensory deficits, alert, normal mood/affect, oriented x 3 Skin: ecchymosis (Old on forehead), other (Large hematoma of occipital scalp) Progress/Results/Core Measures Results/Orders My Orders Orders - LULU CHOWDHURY MD Ct Head Wo (12/03/21 01:08) Ct Cervical Spine Wo (12/03/21 01:08) Vital Signs/I&O 12/03/21 12/03/21 12/03/21 00:39 01:47 02:21 Pulse 63 96 64 Resp 18 18 18 B/P (MAP) 165/72 (103) 157/71 154/86 Pulse Ox 97 96 97 O2 Delivery Room Air Room Air Blood Pressure Mean: 103 Progress Progress Note : Progress Note Evaluation of patient in ER showed 81-year-old female patient with a fall and injury to back of her head. CT head and cervical spine was unremarkable. Patient had large hematoma of occipital scalp and ice applied and advised to take ibuprofen and Tylenol as needed for pain and talk to her doctor regarding fall prevention. Diagnostic Imaging Diagonstic Imaging: CT Plain Films/CT/US/NM/MRI: c-spine, head Comments CT head and cervical spine interpreted by radiologist and reviewed by me and did not show acute finding. Departure Impression Primary Impression: Scalp hematoma Qualified Codes: S00.03XA - Contusion of scalp, initial encounter Additional Impression: Fall at home Qualified Codes: W19.XXXA - Unspecified fall, initial encounter; Y92.009 - Unspecified place in unspecified non-institutional (private) residence as the place of occurrence of the external cause Disposition: 01 HOME, SELF-CARE Condition: Improved Departure-Patient Inst. Decision time for Depature: 03:02 Referrals: NILA CASAS MD (PCP/Family) Primary Care Physician Patient Instructions: HEMATOMA, Preventing Falls ED Add. Discharge Instructions: Apply ice on the affected area, Drink plenty of liquid, Talk to your doctor regarding fall prevention May take eetj-ihn-truxkds Tylenol or ibuprofen as needed for pain All discharge instructions reviewed with patient and/or family. Voiced understanding. LULU CHOWDHURY MD Dec 03, 2021 01:14
--- NOTE | 2021-12-03 06:16 | Diagnostic Imaging Report ---
PROCEDURE: CT cervical spine without contrast. TECHNIQUE: Multiple contiguous axial images were obtained through the cervical spine without the use of intravenous contrast. Sagittal and coronal reformations were then performed. Auto Exposure Controls were utilized during the CT exam to meet ALARA standards for radiation dose reduction. INDICATION: Neck injury after fall COMPARISON: None available. FINDINGS: Mild straightening of the cervical spine. However, there is no acute traumatic subluxation. No fracture within the cervical spine. No high-grade spinal stenosis. There are mild degenerative changes predominantly characterized by uncovertebral joint hypertrophy causing areas of mild neuroforaminal stenosis. No cervical lymphadenopathy. Lung apices are clear. IMPRESSION: 1. No acute fracture or malalignment. 2. Findings are in agreement with the preliminary report. Dictated by: Dictated on workstation # [id number]
--- NOTE | 2021-12-03 06:17 | Diagnostic Imaging Report ---
PROCEDURE: CT head without contrast. TECHNIQUE: Multiple contiguous axial images were obtained through the brain without the use of intravenous contrast. Auto Exposure Controls were utilized during the CT exam to meet ALARA standards for radiation dose reduction. INDICATION: Head injury, fall. COMPARISON: None available. FINDINGS: Large posterior scalp hematoma is located to the left of midline in the high left parietal region. No acute intracranial hyperdense hemorrhage. No hydrocephalus or midline shift. [place]-white matter differentiation is preserved. Hypoattenuation in the bilateral occipital lobes is likely due to beam hardening artifact associated with the skull. No skull fracture. Paranasal sinuses and mastoid air cells are clear. IMPRESSION: 1. No acute intracranial hemorrhage. 2. Left posterior scalp hematoma without skull fracture. 3. Findings are in agreement with the preliminary report. Dictated by: Dictated on workstation # [id number]
== END 2021-12-03 03:16 | disposition home or self-care (01) ==
LOC: EDUNIT# 00:26 → ER FS 00:28
DX: S00.03XA Contusion of scalp, initial encounter (principal); Z28.310 Unvaccinated for COVID-19; W18.30XA Fall on same level, unspecified, initial encounter; W22.8XXA Striking against or struck by other objects, initial encounter; Y92.091 Bathroom in other non-institutional residence as the place of occurrence of the external cause
CPT/HCPCS: 70450; 72125; 99282

== ENCOUNTER → 2022-01-03 | Outpatient (CLI) | payer MEDICARE | LOC: LABNPT 15:09 | PROVIDERS: ATTEND Registered Nurse Emergency | DX: N39.0 Urinary tract infection, site not specified (principal) | CPT/HCPCS: 87077; 87088; 87186 ==

== ENCOUNTER 2022-01-24 05:35 | Outpatient (CLI) | payer MEDICARE ==
[~2022-01-24] VITALS: Ht 160 cm; Wt 59.3 kg
[2022-01-26] MEDS ORDERED: OMEP20CA18 PO (13:23)
[2022-01-26] MEDS ORDERED: IRON18TA PO (13:23)
[2022-01-26] MEDS ORDERED: HYDR-3820 PO (13:23)
== END 2022-01-26 13:25 | disposition home or self-care (01) ==
LOC: PREOP 05:35
PROVIDERS: ATTEND Surgery
DX: Z01.818 Encounter for other preprocedural examination (principal); D64.9 Anemia, unspecified; R13.10 Dysphagia, unspecified; Z87.19 Personal history of other diseases of the digestive system; Z86.010 Personal history of colon polyps

== ENCOUNTER 2022-02-02 10:11 | Day surgery (SDC) | payer MEDICARE ==
[~2022-02-02] VITALS: Ht 160 cm; Wt 59.3 kg
[~2022-02-02 10:11] MED LIST changes: +HYDR-3820 PO; +IRON18TA PO
[2022-02-02] MEDS ORDERED: LACTATED RINGERS 1,000 ML IV ONE (10:27)
[2022-02-02 11:07] VITALS: BP 142/78
[2022-02-02] MEDS ORDERED: LACTATED RINGERS 1,000 ML IV STA (11:13)
[2022-02-02] MEDS ORDERED: HURRICAINE EXT TUBE (BENZOCAINE) XX PRN (11:15)
[2022-02-02] MEDS ORDERED: LIDOCAINE JELLY 2% 6 ML SYRINGE MM PRN (11:15)
[2022-02-02] MEDS ORDERED: PROPOFOL INJECTION 50 ML IV ONE (13:00)
[2022-02-02 14:03] VITALS: BP 120/58
[2022-02-02 14:05] VITALS: BP 119/56
--- NOTE | 2022-02-02 14:12 | Progress Note-Pre Operative ---
Pre-Operative Progress Note Date of Available H&P: Feb 02, 2022 Date H&P Reviewed: Feb 02, 2022 Time H&P Reviewed: 11:00 History & Physical: No changes noted Pre-Operative Diagnosis: anemia, GERD, dysphagia, hx diverticulitis MILLIE MIRANDA MD Feb 02, 2022 14:12
--- NOTE | 2022-02-02 14:14 | Progress Note-Post Operative ---
Post-Operative Progess Note Surgeon (s)/Journeyman Press Operator (s) Surgeon MILLIE MIRANDA MD Journeyman Press Operator: none Pre-Operative Diagnosis anemia, GERD, dysphagia, hx diverticulitis Post-Operative Diagnosis reflux esophagitis(grade C), dist esoph stricture, small HH(1.5cm), small healing antral ulcer. chronic stage 2 ext and int hemorrhoids, severe diverticulosis, mild cecal/asc colitis. Procedure & Operative Findings Date of Procedure 02/02/22 Procedure Performed/Findings EGD with bx and balloon dilatation. Colonoscopy with bx. Anesthesia Type mac Estimated Blood Loss Estimated blood loss (mL): minimal Specimens/Packing Specimens Removed ge jxn, antrum MILLIE MIRANDA MD Feb 02, 2022 14:14
[2022-02-02] MEDS ORDERED: PANT40TA2 PO (14:17)
--- NOTE | 2022-02-02 14:17 | Discharge Inst-Surgical ---
D/C Lap Instructions-KIDO New, Converted, or Re-Newed RX: RX on Chart Follow Up Activity as tolerated High Fiber Diet 25g or more per day Avoid Alcohol, Caffeine, Spicy [place] and Acid foods. Drink 64 fluid oz or more of fluids per day. Symptoms to Report: Fever over 101 degree F, Nausea/Vomiting If any problems/questions: Contact your physician or go to Emergency Room MILLIE MIRANDA MD Feb 02, 2022 14:17
[2022-02-02] MEDS ORDERED: ONDANSETRON 4 MG (ZOFRAN) ORAL DISSOLVE TAB PO PRN (14:30)
[2022-02-02] MEDS ORDERED: ONDANSETRON 4 MG/2 ML (SDV) Z0FRAN IVP PRN (14:30)
[2022-02-02 14:35] VITALS: BP 119/56
--- NOTE | 2022-02-02 15:08 | Anesthesia-General Post-Op ---
MAC Patient Condition Mental Status/LOC: Same as Preop Cardiovascular: Satisfactory Nausea/Vomiting: Absent Respiratory: Satisfactory Pain: Controlled Complications: Absent Post Op Complications Complications None Follow Up Care/Instructions Patient Instructions None needed. Anesthesiology Discharge Order Discharge Order Patient is doing well, no complaints, stable vital signs, no apparent adverse anesthesia problems. No complications reported per nursing. PATRICIA CANTU DO Feb 02, 2022 15:08
--- NOTE | 2022-02-02 15:46 | OPERATIVE REPORT ---
DATE OF SERVICE: 02/02/2022 ATTENDING PRIMARY CARE PHYSICIAN: Dr. Diann Almonte. PREOPERATIVE DIAGNOSES: Anemia, dysphagia, gastroesophageal reflux disease, history of diverticulitis. 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 PROCEDURES: 1. EGD with biopsy and balloon dilatation. 2. Colonoscopy with biopsy. SURGEON: Millie Miranda MD. ANESTHESIA: Monitored anesthesia care. ESTIMATED BLOOD LOSS: Minimal. 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 DISPOSITION: The patient tolerated the procedure well. INDICATIONS: The patient is a 81-year-old female known to us. She developed crampy abdominal pain and has had issues with constipation for many years. We had done an EGD and colonoscopy on her back in 03/2020 and she was found to have a distal esophageal stricture and a small hiatal hernia as well as a moderate gastritis. She was also found to have significant diverticulosis of the sigmoid colon. She returns and states that she is having issues with anemia and is on iron replacement therapy. She also did have episode of diverticulitis and continues to have issues with reflux. DESCRIPTION OF PROCEDURE: The patient was brought to the endoscopy suite, laid in the left lateral decubitus position. After adequate IV pain and sedative medications and monitored anesthesia care, the mouthpiece was applied. The endoscope was then placed into the mouth visualizing the pharynx to hypopharyngeal region. Vocal cords, epiglottis and vallecula identified and appeared to be normal. The endoscope was gently intubated into the esophageal opening and esophagus insufflated. Endoscope was then intubated into the esophageal opening and esophagus insufflated. The endoscope was then advanced to the first, second and third portion of esophagus at the level of the GE junction, reflux esophagitis, Kimble grade C identified with a distal esophageal stricture and Schatzki's ring identified. A biopsy was taken with forceps with visualization of good hemostasis. The endoscope was then advanced into the stomach and endoscope retroflexed, visualizing a small hiatal hernia approximately 1.5 to 2 cm in size. There was a moderate severity gastritis with a small healing antral ulcer identified. A biopsy was taken of the rim of the ulcer with forceps with visualization of good hemostasis. The endoscope was then advanced to the pylorus and the first and second portion of the duodenum, which appeared normal with no distal obstructions. Balloon was then placed in the stomach and pulled back to the area of the stricture. We then proceeded integrated stepwise fashion from 2, 4, then 6 atmospheres of pressure or 20 mm in luminal diameter and left this in place for approximately 60 seconds with moderate resistance. The balloon was then desufflated and removed with visualization of good hemostasis as well as no mucosal tears. The endoscope was then slowly withdrawn while taking a second look and suctioning of residual air with no additional findings. The patient tolerated the procedure well. We will start IV and oral pain medication as well as a clear liquid diet. We will recommend the necessary lifestyle and dietary accommodation including small and more frequent meals, avoidance of eating at night as well as head elevation while lying supine. She also needs to avoid caffeinated beverages, spicy, greasy and acidic foods. We will also start her on Protonix to take the place of her current omeprazole 20 mg regimen. We will also recommend a high fiber diet with at least 25 grams of fiber daily as well as significant amounts of water to promote soft consistency stools on a daily basis and prevent the complications of diverticulosis. If she is asymptomatic, she does not need another colonoscopy for another 10 years; however, if she does have issues again, she will need a followup colonoscopy. Also, she does have recurrent dysphagia, she was recommended to follow up. Job ID: [id number] DocumentID: [id number] Dictated Date: 02/02/2022 14:05:08 Well Surveying Engineer Date: 02/02/2022 15:45:21 Dictated By: MILLIE MIRANDA MD
== END 2022-02-02 15:35 | disposition home or self-care (01) ==
LOC: ENDO 10:11
PROVIDERS: ATTEND Surgery
DX: K63.89 Other specified diseases of intestine (principal); K29.50 Unspecified chronic gastritis without bleeding; K21.00 Gastro-esophageal reflux disease with esophagitis, without bleeding; K25.9 Gastric ulcer, unspecified as acute or chronic, without hemorrhage or perforation; K64.1 Second degree hemorrhoids; K64.8 Other hemorrhoids; K57.30 Diverticulosis of large intestine without perforation or abscess without bleeding; D50.9 Iron deficiency anemia, unspecified

== ENCOUNTER → 2022-07-13 | Outpatient (CLI) | payer MEDICARE | LOC: LABNPT 15:38 | PROVIDERS: ATTEND Family Medicine | DX: R19.7 Diarrhea, unspecified (principal) | CPT/HCPCS: 87324; 87449; 89055 ==

== ENCOUNTER → 2023-02-12 | Outpatient (CLI) | payer MEDICARE ==
--- NOTE | 2023-02-12 12:32 | Diagnostic Imaging Report ---
INDICATION: Pain, fall COMPARISON: None available. TECHNIQUE: 3 radiographs of left knee dated 02/12/2023. FINDINGS: Lucencies concerning for acute nondisplaced fractures are noted involving the mid and inferior aspect of the patella. This is associated with mild prepatellar soft tissue swelling and a tiny knee joint effusion. No additional fracture or dislocation. No destructive osseous process. Mild medial joint space narrowing. No suspicious radiopaque foreign body. IMPRESSION: Acute nondisplaced fracturing involving the mid and inferior aspect of the patella with associated overlying soft tissue swelling and a tiny knee joint effusion. Low-grade degenerative changes for age. Dictated by: Dictated on workstation # [id number]
== END ==
LOC: RAD FS 12:03
PROVIDERS: ATTEND Family Medicine
DX: M17.12 Unilateral primary osteoarthritis, left knee (principal); S80.912A Unspecified superficial injury of left knee, initial encounter
CPT/HCPCS: 73562

== ENCOUNTER → 2023-03-20 | Outpatient (CLI) | payer MEDICARE ==
--- NOTE | 2023-03-20 11:13 | Diagnostic Imaging Report ---
Indication: Right foot pain AP, oblique, lateral views the right foot are obtained. No fracture or acute bony abnormality seen. Joint spaces are unremarkable. IMPRESSION: Negative right foot. Dictated by: Dictated on workstation # [id number]
== END ==
LOC: RAD FS 10:36
PROVIDERS: ATTEND Family Medicine
DX: M79.671 Pain in right foot (principal)
CPT/HCPCS: 73630